=== PATIENT | female | born 1995 | race Caucasian/White ===

== ENCOUNTER 2020-02-16 13:56 | Outpatient (REF) | payer MEDICAID, SELFPAY ==
[2020-02-16 14:03] LABS: Glucose Urine UA NEG (NEG); Leukocyte Esterase Urine NEG (NEG); Nitrite Urine NEG (NEG); Specific Gravity - Urine >= 1.030 (1.005-1.025); Urine Blood TRACE (NEG); Urine Ketones NEG (NEG); Urine Protein NEG (NEG-TRACE)
[2020-02-16 14:06] LABS: Appearance Urine HAZY; Color Urine YELLOW
[2020-02-16 14:12] LABS: Mucus Urine 2+ /LPF; RBC Urine 0-2 /HPF (0); Squamous Epithelial Cell Urine 1+ /LPF; WBC Urine 0 /HPF (0-4)
== END 2020-02-16 13:57 | disposition home or self-care (01) ==
LOC: HO.LNP 13:56
PROVIDERS: Visit Provider Family Medicine
DX: Z33.1 Pregnant state, incidental (principal)
CPT/HCPCS: 81001; 81003; 87086

== ENCOUNTER 2020-02-18 22:42 | Emergency (ER) | payer MEDICAID, SELFPAY ==
[2020-02-18 22:45] VITALS: BP 119/73; PULSE 146; RESP 22; TEMP 37.2; O2SAT 98; BMI 29.2
--- NOTE | 2020-02-18 22:53 | XR_ITS ---
EXAMINATION: XR CHEST CLINICAL INFORMATION: Shortness of breath COMPARISON: 04/28/2019 TECHNIQUE: Frontal view of the chest was obtained. FINDINGS: Cardiac leads overlie the chest. The lungs are well expanded. There is no focal consolidation, edema, or effusion. Bronchial wall thickening noted. No pneumothorax. The cardiomediastinal silhouette is within normal limits. No acute osseous abnormality. XR/XR chest 1V IMPRESSION: No consolidation. Bronchial wall thickening can be seen with a small airways process such as asthma or atypical/viral infection.
--- NOTE | 2020-02-18 22:53 | ECG_ITS ---
Test Reason : COUGH Blood Pressure : / mmHG Vent. Rate : 148 BPM Atrial Rate : 148 BPM P-R Int : 112 ms QRS Dur : 072 ms QT Int : 338 ms P-R-T Axes : 076 071 046 degrees QTc Int : 530 ms Sinus tachycardia Nonspecific ST and T wave abnormality Abnormal ECG When compared with ECG of 22-APR-2019 13:55, Non-specific change in ST segment in Inferior leads Non-specific change in ST segment in Anterior leads Referred By: Staci Baht Electronically Signed By:KATIE BONE
[2020-02-18 23:05] VITALS: BP 152/89; PULSE 166; RESP 26; TEMP 37.3; O2SAT 99; BMI 29.2
--- NOTE | 2020-02-18 23:18 | ED_ITS ---
HPI - SOB/Dyspnea General Chief Complaint: Upper Respiratory Symptoms Stated Complaint: Asthma Time Seen by Provider: 02/18/20 22:52 Source: patient Mode of arrival: ambulatory History of Present Illness HPI Narrative: 25-year-old female with past medical history of asthma, tachycardia, at about 7 weeks gestation LMP 12/31/19, presenting to the ED complaining persistent cough, chest tightness, and SOB x7 days. Admits to using albuterol q4hrs with some relief. Also reports lower abdominal discomfort suspected from all the coughing. Denies fever, chills, N/V/D/C, dysuria/hematuria, vaginal bleeding or d/c, recent travel, hx clots or exposure to covid19 admits has been off her Metoprolol x7 weeks due to MD elicited complaint: shortness of breath, cough and asthma attack Related Data Previous Rx's Medication Instructions Recorded fluticasone propionate 50 1 spray INTRANASAL BID 30 Days 02/16/20 mcg/actuation nasal #15.8 ml spray,suspension prenat.vits,seymour,[id number]-[id number] 1 tab PO DAILY 90 Days #90 tab 02/16/20 azithromycin See Rx Instructions .ROUTE 02/19/20 .COMPLEX #6 tab prednisone 40 mg PO DAILY 4 Days #8 tab 02/19/20 Allergies Allergy/AdvReac Type Severity Reaction Status Date / Time omalizumab [From XOLAIR] Allergy Severe HIVES AND Verified 02/18/20 23:05 THROAT CLOSING Penicillins [PENICILLINS] Allergy Severe UNKNOWN Verified 02/18/20 23:05 amoxicillin [AMOXICILLIN] Allergy Intermediate UNKNOWN, Verified 02/18/20 23:05 anaphylaxis,rash cetirizine [From ZYRTEC] Allergy Intermediate SHORTNESS Verified 02/18/20 23:05 OF BREATH vancomycin [VANCOMYCIN] Allergy Intermediate RASH, Verified 02/18/20 23:05 itching animal dander Allergy Unknown HIVES Verified 02/18/20 23:05 loratadine [LORATADINE] Allergy Unknown THROAT Verified 02/18/20 23:05 SWELLING, hives SEAFOOD Allergy Severe ANAPHYLAXIS Uncoded 02/18/20 22:49 GRASS Allergy Mild HIVES Uncoded 02/18/20 22:49 penicillin AdvReac Unknown anaphylaxis Uncoded 02/18/20 22:49 ,rash Review of Systems Review of Systems: Constitutional: No Weight loss, No Fever, No Chills, No Night Sweats, No Fatigue, No Malaise ENT/Mouth: No Nasal Congestion, No Sinus Pain, No Hoarseness, No sore throat, No Rhinorrhea Cardiovascular: + Chest Pain, + SOB, No Dyspnea on Exertion, No Orthopnea, No Edema Respiratory: + Cough, + Sputum, + Wheezing, No Smoke Exposure, +Dyspnea Gastrointestinal: No Nausea, No Vomiting, No Diarrhea, No Constipation, + Abdominal pain, No Hematochezia, No Melena Genitourinary: No irregular bleeding, No Dysuria, No Urinary Frequency, No Hematuria Musculoskeletal: No joint pain, No Myalgias, No Joint Swelling Skin: No Skin Lesions, No rash Yes all other systems are reviewed and are negative [facility] Past Medical History Attestation statement: The following information was validated with the patient. Medical History (Updated 02/19/20 @ 01:07 by SANDRA Reeves) Asthma Tachycardia Social History Social History Advance Directives: No Advance Directives Information Provided: No Physical Exam Vital Signs: Vital Signs: Last Vital Signs Temp 99.1 F 02/18/20 23:05 Pulse 149 H 02/19/20 00:25 Resp 22 H 02/19/20 00:07 BP 124/70 02/19/20 00:07 Pulse Ox 99 02/19/20 00:07 Body Mass Index 29.2 Const: General: cooperative and healthy appearing Orientation/ consciousness: patient oriented x3 Limitations: no limitations HENMT: Head: Yes normal to inspection Ears: hearing grossly normal bilaterally General nose exam: Normal external nose present Face and sinus: Yes normal facial exam Eyes: General: appearance normal, both eyes and all related structures EOM: EOMs intact bilaterally Neck: Neck: Yes normal visual inspection and Yes no meningeal signs Resp: Effort & Inspection: no stridor and tachypneic Auscultation: no wheezes and diminished lung sounds (bibasilar) Cardio: Rate: regular rate and tachycardic Heart sounds: S1 normal heart sound present and S2 normal heart sound present GI: Inspection: Yes normal to inspection Palpation (GI): Soft to palpation, Tenderness to palpation present (GI) (lower abdomen), no guarding and not rigid Skin: Rashes: no rashes Wounds: no wounds Neuro: General: patient oriented x3 and no meningeal signs Gait exam (Neuro): Normal gait present Extrem: General: Yes normal to inspection Course Course Course Narrative: * mild leukocytosis 15.7 > low concern for severe sepsis, likely reactive from coughing * d-dimer negative * CRP mildly elevated, troponin negative, labs otherwise unremarkable * Lungs CTA after neb tx chest 1V IMPRESSION: No consolidation. Bronchial wall thickening can be seen with a small airways process such as asthma or atypical/viral infection. * [id number]/influenza/RSV negative, on re-evaluation patient reports symptomatic improvement, appears more comfortable, heart rate 120-130. Patient reports chronic tachycardia, baseline usually around 108 * 0200-- ED care transferred to Dr. Gill pending OB Ultrasound, UA and re- evaluation MDM - SOB/Dyspnea MDM Narrative Medical decision making narrative: 25-year-old female with past medical history of asthma, tachycardia, at about 7 weeks gestation, presenting to the ED complaining persistent cough, chest tightness, and SOB x7 days. On exam tachycardic, tachypneic, low grade temp 99.1, continuously coughing on exam, diminished lung sounds bibasilar, no appreciable wheezing, no resp distress when not coughing. Concern for asthma exacerbation vs viral syndrome/covid vs PE. Lower concern for PNA or severe sepsis Plan: EKG, labs, CXR, Covid/flu/rsv, Xopenex, Magnesium, Prednisone, US Lab Data Result diagrams: 02/19/20 00:00 02/18/20 23:59 Labs: Lab Results 02/18/20 02/18/20 02/18/20 Range/Units 23:58 23:59 23:59 WBC (4.8-10.8) X10*3/uL RBC (4.20-5.50) X10*6/uL Hgb (12.0-16.0) g/dl Hct (37-47) % MCV (80-98) fL MCH (27.0-33.0) pg MCHC (31.0-35.0) g/dl RDW (11.0-16.0) % Plt Count (160-400) X10*3/uL MPV Immature Gran % (Auto) (0.0-0.4) % Neut % (Auto) (45-73) % Lymph % (Auto) (20-40) % [place] % (Auto) (2-11) % Eos % (Auto) (0-4) % Baso % (Auto) (0-2) % Lymph # (Auto) (1.2-4.9) X10*3/uL [place] # (Auto) (0.1-1.2) X10*3/uL Eos # (Auto) (0.0-0.4) X10*3/uL Baso # (Auto) (0.0-0.2) X10*3/uL Abs Immat Gran (auto) (0.00-0.03) X10*3/uL Absolute Neuts (auto) (2.0-8.3) X10*3/uL Absolute Nucleated RBC (0.0-0.012) X10*3/uL Nucleated RBC % (auto) (0.0-0.2) /100WBC Smear Tech's Comments PT (10.8-13.0) SEC INR (0.9-1.1) APTT (24.1-38.0) SEC D-Dimer NG/ML Sodium 138 (135-145) mmol/L Potassium 3.7 (3.3-5.1) mmol/l Chloride 103 (96-108) mmol/L Carbon Dioxide 23 (22-29) mmol/L Anion Gap 16 (12-20) BUN 10 (9-16) mg/dL Creatinine 0.64 (0.5-1.4) mg/dL Estim Creat Clear Calc 137.4 Estimated GFR > 60 Random Glucose 89 (60-115) mg/dL Calcium 9.5 (8.4-10.2) mg/dL Magnesium 1.7 (1.6-2.6) mg/dL Ferritin 68 (10-122) ng/mL Total Bilirubin 0.2 (0.0-1.0) mg/dL Direct Bilirubin < 0.2 (0.0-0.5) mg/dL AST 17 (5-31) U/L ALT 23 (0-31) U/L Alkaline Phosphatase 73 (39-117) U/L Lactate Dehydrogenase 186 (122-220) U/L Troponin I High Sens (<3.5-17.0) ng/L C-Reactive Protein (< or = 0.50) mg/dL B-Natriuretic Peptide (<100) pg/mL Total Protein 8.1 H (6.5-8.0) g/dL Albumin 4.9 (3.5-5.0) g/dL Lipase 16 (8-78) U/L Procalcitonin 0.03 ng/mL Beta HCG, Quant mIU/mL Urine Color Urine Appearance Urine pH (5.0-8.0) Ur Specific [place] (1.005-1.025) Urine Protein (NEG-TRACE) MG/DL Urine Glucose (UA) (NEG) MG/DL Urine Ketones (NEG) MG/DL Urine Blood (NEG) Urine Nitrite (NEG) Ur Leukocyte Esterase (NEG) Coronavirus (PCR) (Negative) Influenza Type A (PCR) (Negative) Influenza Type B (PCR) (Negative) RSV RNA Qual (PCR) (Negative) 02/18/20 02/18/20 02/19/20 Range/Units 23:59 23:59 00:00 WBC 15.7 H (4.8-10.8) X10*3/uL RBC 5.33 (4.20-5.50) X10*6/uL Hgb 11.9 L (12.0-16.0) g/dl Hct 37.7 (37-47) % MCV 70.7 L (80-98) fL MCH 22.3 L (27.0-33.0) pg MCHC 31.6 (31.0-35.0) g/dl RDW 14.2 (11.0-16.0) % Plt Count 216 (160-400) X10*3/uL MPV TNP Immature Gran % (Auto) 0.4 (0.0-0.4) % Neut % (Auto) 81.9 H (45-73) % Lymph % (Auto) 8.8 L (20-40) % [place] % (Auto) 4.3 (2-11) % Eos % (Auto) 4.3 H (0-4) % Baso % (Auto) 0.3 (0-2) % Lymph # (Auto) 1.4 (1.2-4.9) X10*3/uL [place] # (Auto) 0.7 (0.1-1.2) X10*3/uL Eos # (Auto) 0.7 H (0.0-0.4) X10*3/uL Baso # (Auto) 0.0 (0.0-0.2) X10*3/uL Abs Immat Gran (auto) 0.07 H (0.00-0.03) X10*3/uL Absolute Neuts (auto) 12.9 H (2.0-8.3) X10*3/uL Absolute Nucleated RBC 0.000 (0.0-0.012) X10*3/uL Nucleated RBC % (auto) 0.0 (0.0-0.2) /100WBC Smear Tech's Comments VERIFIED PT (10.8-13.0) SEC INR (0.9-1.1) APTT (24.1-38.0) SEC D-Dimer 221 NG/ML Sodium (135-145) mmol/L Potassium (3.3-5.1) mmol/l Chloride (96-108) mmol/L Carbon Dioxide (22-29) mmol/L Anion Gap (12-20) BUN (9-16) mg/dL Creatinine (0.5-1.4) mg/dL Estim Creat Clear Calc Estimated GFR Random Glucose (60-115) mg/dL Calcium (8.4-10.2) mg/dL Magnesium (1.6-2.6) mg/dL Ferritin (10-122) ng/mL Total Bilirubin (0.0-1.0) mg/dL Direct Bilirubin (0.0-0.5) mg/dL AST (5-31) U/L ALT (0-31) U/L Alkaline Phosphatase (39-117) U/L Lactate Dehydrogenase (122-220) U/L Troponin I High Sens (<3.5-17.0) ng/L C-Reactive Protein 1.40 H (< or = 0.50) mg/dL B-Natriuretic Peptide (<100) pg/mL Total Protein (6.5-8.0) g/dL Albumin (3.5-5.0) g/dL Lipase (8-78) U/L Procalcitonin ng/mL Beta HCG, Quant 57826 mIU/mL Urine Color Urine Appearance Urine pH (5.0-8.0) Ur Specific [place] (1.005-1.025) Urine Protein (NEG-TRACE) MG/DL Urine Glucose (UA) (NEG) MG/DL Urine Ketones (NEG) MG/DL Urine Blood (NEG) Urine Nitrite (NEG) Ur Leukocyte Esterase (NEG) Coronavirus (PCR) (Negative) Influenza Type A (PCR) (Negative) Influenza Type B (PCR) (Negative) RSV RNA Qual (PCR) (Negative) 02/19/20 02/19/20 02/19/20 Range/Units 00:00 00:00 00:01 WBC (4.8-10.8) X10*3/uL RBC (4.20-5.50) X10*6/uL Hgb (12.0-16.0) g/dl Hct (37-47) % MCV (80-98) fL MCH (27.0-33.0) pg MCHC (31.0-35.0) g/dl RDW (11.0-16.0) % Plt Count (160-400) X10*3/uL MPV Immature Gran % (Auto) (0.0-0.4) % Neut % (Auto) (45-73) % Lymph % (Auto) (20-40) % [place] % (Auto) (2-11) % Eos % (Auto) (0-4) % Baso % (Auto) (0-2) % Lymph # (Auto) (1.2-4.9) X10*3/uL [place] # (Auto) (0.1-1.2) X10*3/uL Eos # (Auto) (0.0-0.4) X10*3/uL Baso # (Auto) (0.0-0.2) X10*3/uL Abs Immat Gran (auto) (0.00-0.03) X10*3/uL Absolute Neuts (auto) (2.0-8.3) X10*3/uL Absolute Nucleated RBC (0.0-0.012) X10*3/uL Nucleated RBC % (auto) (0.0-0.2) /100WBC Smear Tech's Comments PT 12.7 (10.8-13.0) SEC INR 1.1 (0.9-1.1) APTT 33.5 (24.1-38.0) SEC D-Dimer NG/ML Sodium (135-145) mmol/L Potassium (3.3-5.1) mmol/l Chloride (96-108) mmol/L Carbon Dioxide (22-29) mmol/L Anion Gap (12-20) BUN (9-16) mg/dL Creatinine (0.5-1.4) mg/dL Estim Creat Clear Calc Estimated GFR Random Glucose (60-115) mg/dL Calcium (8.4-10.2) mg/dL Magnesium (1.6-2.6) mg/dL Ferritin (10-122) ng/mL Total Bilirubin (0.0-1.0) mg/dL Direct Bilirubin (0.0-0.5) mg/dL AST (5-31) U/L ALT (0-31) U/L Alkaline Phosphatase (39-117) U/L Lactate Dehydrogenase (122-220) U/L Troponin I High Sens < 3.5 (<3.5-17.0) ng/L C-Reactive Protein (< or = 0.50) mg/dL B-Natriuretic Peptide < 10 (<100) pg/mL Total Protein (6.5-8.0) g/dL Albumin (3.5-5.0) g/dL Lipase (8-78) U/L Procalcitonin ng/mL Beta HCG, Quant mIU/mL Urine Color Urine Appearance Urine pH (5.0-8.0) Ur Specific [place] (1.005-1.025) Urine Protein (NEG-TRACE) MG/DL Urine Glucose (UA) (NEG) MG/DL Urine Ketones (NEG) MG/DL Urine Blood (NEG) Urine Nitrite (NEG) Ur Leukocyte Esterase (NEG) Coronavirus (PCR) NEGATIVE (Negative) Influenza Type A (PCR) NEGATIVE (Negative) Influenza Type B (PCR) NEGATIVE (Negative) RSV RNA Qual (PCR) NEGATIVE (Negative) 02/19/20 Range/Units 01:13 WBC (4.8-10.8) X10*3/uL RBC (4.20-5.50) X10*6/uL Hgb (12.0-16.0) g/dl Hct (37-47) % MCV (80-98) fL MCH (27.0-33.0) pg MCHC (31.0-35.0) g/dl RDW (11.0-16.0) % Plt Count (160-400) X10*3/uL MPV Immature Gran % (Auto) (0.0-0.4) % Neut % (Auto) (45-73) % Lymph % (Auto) (20-40) % [place] % (Auto) (2-11) % Eos % (Auto) (0-4) % Baso % (Auto) (0-2) % Lymph # (Auto) (1.2-4.9) X10*3/uL [place] # (Auto) (0.1-1.2) X10*3/uL Eos # (Auto) (0.0-0.4) X10*3/uL Baso # (Auto) (0.0-0.2) X10*3/uL Abs Immat Gran (auto) (0.00-0.03) X10*3/uL Absolute Neuts (auto) (2.0-8.3) X10*3/uL Absolute Nucleated RBC (0.0-0.012) X10*3/uL Nucleated RBC % (auto) (0.0-0.2) /100WBC Smear Tech's Comments PT (10.8-13.0) SEC INR (0.9-1.1) APTT (24.1-38.0) SEC D-Dimer NG/ML Sodium (135-145) mmol/L Potassium (3.3-5.1) mmol/l Chloride (96-108) mmol/L Carbon Dioxide (22-29) mmol/L Anion Gap (12-20) BUN (9-16) mg/dL Creatinine (0.5-1.4) mg/dL Estim Creat Clear Calc Estimated GFR Random Glucose (60-115) mg/dL Calcium (8.4-10.2) mg/dL Magnesium (1.6-2.6) mg/dL Ferritin (10-122) ng/mL Total Bilirubin (0.0-1.0) mg/dL Direct Bilirubin (0.0-0.5) mg/dL AST (5-31) U/L ALT (0-31) U/L Alkaline Phosphatase (39-117) U/L Lactate Dehydrogenase (122-220) U/L Troponin I High Sens (<3.5-17.0) ng/L C-Reactive Protein (< or = 0.50) mg/dL B-Natriuretic Peptide (<100) pg/mL Total Protein (6.5-8.0) g/dL Albumin (3.5-5.0) g/dL Lipase (8-78) U/L Procalcitonin ng/mL Beta HCG, Quant mIU/mL Urine Color YELLOW Urine Appearance CLEAR Urine pH 5.5 (5.0-8.0) Ur Specific [place] >= 1.030 H (1.005-1.025) Urine Protein NEG (NEG-TRACE) MG/DL Urine Glucose (UA) NEG (NEG) MG/DL Urine Ketones NEG (NEG) MG/DL Urine Blood 2+ H (NEG) Urine Nitrite NEG (NEG) Ur Leukocyte Esterase NEG (NEG) Coronavirus (PCR) (Negative) Influenza Type A (PCR) (Negative) Influenza Type B (PCR) (Negative) RSV RNA Qual (PCR) (Negative) Discharge Plan Discharge Clinical Impression: Asthma with exacerbation Qualifiers: Asthma severity: unspecified severity Asthma persistence: unspecified Qualified Code(s): J45.901 - Unspecified asthma with (acute) exacerbation Patient Disposition: Home, Self-Care Instructions: Asthma (ED) Additional Instructions: You are having a bad asthma exacerbation Continue using your inhalers at home In addition start taking prednisone as prescribed, and azithromycin which is an antibiotic Your chest x-ray showed evidence of bronchial wall thickening/atypical viral infection, however your COVID-19/flu/RSV was negative You need to call your OBGYN for close follow-up If you develop worsening or constant abdominal pain, vaginal bleeding or discharge, chest pain, shortness breath, or high fevers return to the ED immediately Prescriptions: New azithromycin 250 mg tablet See Rx Instructions .ROUTE .COMPLEX Qty: 6 RF: 0 prednisone 20 mg tablet 40 mg PO DAILY 4 Days Qty: 8 RF: 0 No Action prenat.vits,seymour,[id number] Tablet 1 tab PO DAILY 90 Days Qty: 90 RF: 6 fluticasone propionate [Flonase Allergy Relief] 50 mcg/actuation spray,suspension 1 spray intranasal BID 30 Days Qty: 15.8 RF: 2 Referrals: Magnus Hampton MD [Primary Care Provider] - 2 days
[2020-02-18] MEDS: Acetaminophen 325 MG TABLET 650 MG PO (23:42)
[2020-02-18] MEDS: predniSONE 20 MG TABLET 40 MG PO (23:43)
[2020-02-18] MEDS: Benzonatate 100 MG CAPSULE PO (23:44)
[2020-02-19 00:07] VITALS: BP 124/70; PULSE 133; RESP 22; O2SAT 99
--- NOTE | 2020-02-19 00:11 | PC.NURSE ---
pt moved to room #1 for resp tx, pt continues to cough, pt medicated as per emar. iv placed to right wrist, labs drawn and sent to lab for eval. Pt awaiting u/s. pt on monitor with hr of 135. VS obtained.
[2020-02-19] MEDS: 0.9 % Sodium Chloride 500 ML 999 ML IV (00:19)
[2020-02-19] MEDS: Magnesium Sulfate/H2O 2 GM/50 ML PIGGYBACK IV (00:19)
[2020-02-19 00:25] VITALS: PULSE 149; O2SAT 100
[2020-02-19 00:25] LABS: Basophils Percent Auto 0.3 % (0-2); MANUAL DIFF FLAG SCAN; Mean Corpuscular Hemoglobin 22.3 pg (27.0-33.0); Mean Corpuscular Volume 70.7 fL (80-98); SCAN SMEAR FLAG 1
[2020-02-19] MEDS: levalbuterol HCL 1.25 MG/3 ML VIAL.NEB INHALE (00:25)
[2020-02-19 00:27] LABS: Eosinophils Absolute Auto 0.7 X10*3/uL (0.0-0.4); Eosinophils Percent Auto 4.3 % (0-4); Hematocrit 37.7 % (37-47); Hemoglobin 11.9 g/dl (12.0-16.0); Imm Gran Abs Auto 0.07 X10*3/uL (0.00-0.03); Imm Gran Pct Auto 0.4 % (0.0-0.4); Lymphocytes Absolute Auto 1.4 X10*3/uL (1.2-4.9); Lymphocytes Percent Auto 8.8 % (20-40); Mean Corpuscular HGB Conc 31.6 g/dl (31.0-35.0); Monocytes Absolute Auto 0.7 X10*3/uL (0.1-1.2); Monocytes Percent Auto 4.3 % (2-11); Neutrophils Absolute Auto 12.9 X10*3/uL (2.0-8.3); Neutrophils Percent Auto 81.9 % (45-73); Platelet Count 216 X10*3/uL (160-400); Red Blood Count 5.33 X10*6/uL (4.20-5.50); Red Cell Distribution Width 14.2 % (11.0-16.0); White Blood Count 15.7 X10*3/uL (4.8-10.8)
[2020-02-19 00:28] LABS: INTERNATIONAL NORM RATIO 1.1 (0.9-1.1); PLT ABN DIST 1; Prothrombin Time 12.7 SEC (10.8-13.0)
[2020-02-19 00:31] LABS: Partial Thromboplastin Time 33.5 SEC (24.1-38.0)
[2020-02-19 00:32] LABS: D Dimer 221 NG/ML
[2020-02-19 00:41] LABS: B Type Natriuretic Peptide < 10 pg/mL (<100); Troponin-I High Sensitivity < 3.5 ng/L (<3.5-17.0)
[2020-02-19 00:41] LABS: Lipase 16 U/L (8-78)
[2020-02-19 00:44] LABS: Alanine Aminotransferase 23 U/L (0-31); Albumin Level 4.9 g/dL (3.5-5.0); Alkaline Phosphatase 73 U/L (39-117); Anion Gap 16 (12-20); Aspartate Amino Transferase 17 U/L (5-31); Bilirubin Direct < 0.2 mg/dL (0.0-0.5); Bilirubin Total 0.2 mg/dL (0.0-1.0); Blood Urea Nitrogen 10 mg/dL (9-16); Calcium 9.5 mg/dL (8.4-10.2); Carbon Dioxide 23 mmol/L (22-29); Chloride 103 mmol/L (96-108); Creatinine Clr Calc Pharmacy 137.4; Estimated Glomerular Filt Rate > 60; Glucose Random 89 mg/dL (60-115); Lactate Dehydrogenase 186 U/L (122-220); Magnesium 1.7 mg/dL (1.6-2.6); Potassium 3.7 mmol/l (3.3-5.1); Sodium 138 mmol/L (135-145); Total Protein 8.1 g/dL (6.5-8.0)
[2020-02-19 01:04] LABS: Ferritin 68 ng/mL (10-122)
[2020-02-19 01:10] LABS: Procalcitonin 0.03 ng/mL
[2020-02-19 01:14] LABS: Influenza A PCR NEGATIVE (Negative); Influenza B PCR NEGATIVE (Negative); Resp Syncy Virus RNA Qual PCR NEGATIVE (Negative); SARS COV2 PCR INHOUSE NEGATIVE (Negative)
[2020-02-19 01:18] LABS: HCG Quantitative 21368 mIU/mL
[2020-02-19 01:19] LABS: SLIDE REVIEW VERIFIED
--- NOTE | 2020-02-19 01:25 | US_ITS ---
EXAMINATION: US OBSTETRICAL CLINICAL INFORMATION: Evaluate fetus. Lower abdominal pain. COMPARISON: None TECHNIQUE: Real-time ultrasound was performed transabdominally and transvaginally. FINDINGS: Within the endometrial cavity is a well formed gestation sac. A yolk sac is present. The crown-rump length of 0.53 cm corresponds to a menstrual age of 6 weeks 3 days. This yields an estimated date of delivery of 10/11/2020. anatomic survey is normal for age. The heart beat is regular and normal rate measuring 121 beats per minute. Both ovaries are identified normal. The right ovary measures 2.5 x 1.7 x 1.7 cm. The left ovary measures 2.6 x 1.9 x 1.8 cm. No adnexal mass. Other significant findings: Small amount of pelvic free fluid. US/US OB <= 14 weeks fetus IMPRESSION: Single live intrauterine estimated to be 6 weeks 3 days menstrual age. Estimated date of delivery is 10/11/2020.
--- NOTE | 2020-02-19 01:25 | US_ITS ---
EXAMINATION: US OBSTETRICAL CLINICAL INFORMATION: Evaluate fetus. Lower abdominal pain. COMPARISON: None TECHNIQUE: Real-time ultrasound was performed transabdominally and transvaginally. FINDINGS: Within the endometrial cavity is a well formed gestation sac. A yolk sac is present. The crown-rump length of 0.53 cm corresponds to a menstrual age of 6 weeks 3 days. This yields an estimated date of delivery of 10/11/2020. anatomic survey is normal for age. The heart beat is regular and normal rate measuring 121 beats per minute. Both ovaries are identified normal. The right ovary measures 2.5 x 1.7 x 1.7 cm. The left ovary measures 2.6 x 1.9 x 1.8 cm. No adnexal mass. Other significant findings: Small amount of pelvic free fluid. US/US OB transvaginal IMPRESSION: Single live intrauterine estimated to be 6 weeks 3 days menstrual age. Estimated date of delivery is 10/11/2020.
[2020-02-19 01:35] LABS: Glucose Urine UA NEG (NEG); Leukocyte Esterase Urine NEG (NEG); Nitrite Urine NEG (NEG); PH 5.5 (5.0-8.0); Specific Gravity - Urine >= 1.030 (1.005-1.025); Urine Blood 2+ (NEG); Urine Ketones NEG (NEG); Urine Protein NEG (NEG-TRACE)
[2020-02-19 01:37] LABS: Appearance Urine CLEAR; Color Urine YELLOW
[2020-02-19 02:04] LABS: Bacteria Urine 1+ /LPF; Squamous Epithelial Cell Urine 1+ /LPF
[2020-02-19 02:05] LABS: Calcium Oxalate Crystals Urine 3+ /LPF; Mucus Urine 1+ /LPF
== END 2020-02-19 03:30 | disposition home or self-care (01) ==
PROVIDERS: Physician Assistant; Emergency Provider Emergency Medicine; PCP Family Medicine
DX: O99.511 Diseases of the respiratory system complicating pregnancy, first trimester (principal); J45.901 Unspecified asthma with (acute) exacerbation; Z3A.01 Less than 8 weeks gestation of pregnancy; Z20.828 Contact with and (suspected) exposure to other viral communicable diseases
CPT/HCPCS: 0241U; 36415; 71045; 76801; 76817; 80048; 80076; 81001; 82728; 83615; 83690; 83735; 83880; 84145; 84484; 84702; 85025; 85379; 85610; 85730; 86140; 93005; 94640; 96365; 96366; 99284; J3475

== ENCOUNTER → 2020-02-27 14:49 | Outpatient (BNVA) | payer MEDICAID, SELFPAY | PROVIDERS: PCP Family Medicine; Visit Provider Internal Medicine Cardiovascular Disease | DX: R00.0 Tachycardia, unspecified (principal); R06.00 Dyspnea, unspecified | CPT/HCPCS: 93005; 99212 ==

== ENCOUNTER 2020-09-19 13:55 | Outpatient (REF) | payer OTHER, SELFPAY ==
[2020-09-19 16:33] LABS: Glucose Urine UA NEG (NEG); Leukocyte Esterase Urine 2+ (NEG); Nitrite Urine NEG (NEG); Specific Gravity - Urine >= 1.030 (1.005-1.025); Urine Blood 1+ (NEG); Urine Ketones 5 MG/DL (NEG); Urine Protein 1+ MG/DL (NEG-TRACE)
[2020-09-19 16:35] LABS: Appearance Urine HAZY; Color Urine YELLOW
[2020-09-19 16:58] LABS: Bacteria Urine 1+ /LPF; Mucus Urine 1+ /LPF; Squamous Epithelial Cell Urine 2+ /LPF
[2020-09-19 16:59] LABS: Calcium Oxalate Crystals Urine TRACE /LPF
== END 2020-09-19 13:56 | disposition home or self-care (01) ==
LOC: HO.LAB 13:55
PROVIDERS: PCP Family Medicine; Referring Provider Family Medicine; Visit Provider Internal Medicine Cardiovascular Disease
DX: O26.893 Other specified pregnancy related conditions, third trimester (principal); R00.0 Tachycardia, unspecified; R03.0 Elevated blood-pressure reading, without diagnosis of hypertension; Z3A.37 37 weeks gestation of pregnancy
CPT/HCPCS: 81001; 93005; 99212

== ENCOUNTER 2020-10-05 09:00 | Outpatient (RCR) | payer OTHER, SELFPAY | END 2020-10-29 11:52 | disposition home or self-care (01) | LOC: HO.PT 09:00 | PROVIDERS: Visit Provider Advanced Practice Midwife | DX: O26.899 Other specified pregnancy related conditions, unspecified trimester (principal) | CPT/HCPCS: 97110; 97140; 97161; 97530 ==

== ENCOUNTER 2022-07-04 22:09 | Emergency (ER) | payer OTHER, SELFPAY ==
--- NOTE | ~2022-07-04 | XR_ITS ---
EXAMINATION: XR FOOT, RIGHT CLINICAL INFORMATION: Right foot pain status post injury. COMPARISON: None available. TECHNIQUE: AP, lateral, and oblique views of the right foot. FINDINGS: The bones and soft tissues are normal. No fracture. Alignment is anatomic. Joint spaces are maintained. XR/XR foot RT 2V IMPRESSION: Unremarkable right foot.
--- NOTE | ~2022-07-04 | XR_ITS ---
EXAMINATION: XR ANKLE, RIGHT CLINICAL INFORMATION: Right ankle injury. COMPARISON: None available. TECHNIQUE: AP, lateral, and mortise views of the right ankle. FINDINGS: The bones and soft tissues are normal. No fracture. Alignment is anatomic. Joint spaces are maintained. No joint effusion. XR/XR ankle RT 2V IMPRESSION: Unremarkable right ankle.
[2022-07-04 22:12] VITALS: BP 137/85; PULSE 101; RESP 18; TEMP 36.7; O2SAT 98; BMI 22.6
--- NOTE | 2022-07-05 01:14 | ED_ITS ---
HPI - Extremity Injury (Lower) General Chief Complaint: Extremity Injury, Lower Stated Complaint: R Foot Inj Time Seen by Provider: 07/05/22 01:14 Source: patient Mode of arrival: ambulatory Limitations: no limitations History of Present Illness HPI Narrative: 27-year-old female presents to the emergency department complaints of right foot/ankle pain status post playing volleyball, patient reports some the stepped on her foot and since then has been having severe pain swelling. Patient reports intermittent tingling. Denies numbness. No previous issues with right foot. Denies fevers and chills. Patient did not fall or hit her head. No other reported injuries. Related Data Previous Rx's Medication Instructions Recorded prenat.vits,seymour,[id number] 1 tab PO DAILY 90 days #90 tabs 02/16/20 albuterol sulfate 90 mcg/actuation 2 puff inhalation Q4-6H PRN 08/28/20 aerosol inhaler (ProAir HFA) shortness of breath or wheezing #8.5 grams epinephrine 0.3 mg/0.3 mL 0.3 mg (0.3 mL) IM ONCE PRN 10/23/20 injection, auto-injector (EpiPen) anaphylaxis #2 ea ibuprofen 800 mg tablet 800 mg PO Q8H PRN pain 14 days #42 07/19/21 tabs sulfamethoxazole 800 1 tab PO Q12H 10 days #20 tabs 07/19/21 mg-trimethoprim 160 mg tablet (Bactrim DS) ketorolac 10 mg tablet 10 mg PO TID PRN pain 5 days #15 07/05/22 tabs Allergies Allergy/AdvReac Type Severity Reaction Status Date / Time omalizumab [From XOLAIR] Allergy Severe HIVES AND Verified 07/19/21 14:10 THROAT CLOSING Penicillins [PENICILLINS] Allergy Severe UNKNOWN Verified 07/19/21 14:10 amoxicillin [AMOXICILLIN] Allergy Intermediate UNKNOWN, Verified 07/19/21 14:10 anaphylaxis,rash cetirizine [From ZYRTEC] Allergy Intermediate SHORTNESS Verified 07/19/21 14:10 OF BREATH vancomycin [VANCOMYCIN] Allergy Intermediate RASH, Verified 07/19/21 14:10 itching animal dander Allergy Unknown HIVES Verified 07/19/21 14:10 loratadine [LORATADINE] Allergy Unknown THROAT Verified 07/19/21 14:10 SWELLING, hives SEAFOOD Allergy Severe ANAPHYLAXIS Uncoded 07/19/21 14:10 GRASS Allergy Mild HIVES Uncoded 07/19/21 14:10 penicillin AdvReac Unknown anaphylaxis Uncoded 07/19/21 14:10 ,rash Review of Systems Review of Systems: Constitutional : No Weight loss, No Fever, No Chills, No Fatigue, No Malaise ENT/Mouth : No sore throat, No Rhinorrhea Eyes: No Eye Pain, No Swelling, No Redness Cardiovascular : No Chest Pain, No SOB, No Dyspnea on Exertion, No Orthopnea, No Edema, No Palpitations Respiratory : No Cough, No Sputum, No Wheezing Gastrointestinal : No Nausea, No Vomiting, No Diarrhea, No Constipation, No abdominal Pain, No Hematochezia, No Melena Genitourinary : No Dysuria, No Urinary Frequency, No Hematuria, Musculoskeletal : + joint pain, No Myalgias, + Joint Swelling Skin : No Skin Lesions, No rash Neuro : No Weakness, No Numbness, No Dizziness, No Headache Psych : No Anxiety/Panic, No Depression All other systems reviewed and are negative Yes all other systems are reviewed and are negative [facility] Past Medical History Attestation statement: The following information was validated with the patient. Source: old records reviewed Medical History (Updated 07/05/22 @ 01:16 by SANDRA Cody) Asthma Tachycardia Surgical History (Updated 08/09/21 @ 14:13 by Heather Smith) H/O wisdom tooth extraction Family History Family History Father Stroke Diabetes Hypertension Paternal Grandmother Pacemaker Social History Social History Housing: Apartment Alcohol intake: never Patient Tobacco Use Status: Never used Tobacco Smoked in Last 30 Days: No e-Cigarette/Vaping Use: Never Used Use of substances other than those prescribed or required for medical reasons: No Advance Directives: No Advance Directives Information Provided: Yes Patient : No Current occupational status: employed Cognitive needs: No Hearing needs: No Vision needs: No Physical Exam Vital Signs: Vital Signs: Last Vital Signs Temp 98.1 F 07/05/22 01:15 Pulse 100 07/05/22 01:15 Resp 18 07/05/22 01:15 BP 132/80 07/05/22 01:15 Pulse Ox 99 07/05/22 01:15 O2 Del Method Room Air 07/05/22 01:15 BMI result Body Mass Index 22.6 Vital signs stable Appearance: Alert.? Oriented X3.? No acute distress.? Head: Normocephalic, atraumatic, no step-offs or deformities Eyes: Pupils equal, round and reactive to light.? CVS: Normal heart rate and rhythm.? Pulses normal.? Respiratory: No respiratory distress.? Breath sounds normal.? Abdomen: Soft and nontender.? Skin: Skin warm and dry.? Normal skin color.? Normal skin turgor.? Extremities: No lower extremity edema.? No calf ttp. 5/5 strength to bilateral upper and lower extremities 2+ dorsalis pedis, anterior tibialis and posterior tibialis pulses equal bilateral. Capillary refill less than 2 seconds to bilateral lower extremity toes, normal sensation to lower extremities. Ambulatory with steady gait. No pain with palpation to bilateral feet. No foot drop. Back: No midline tenderness, no C-spine tenderness, full range of motion, no CVA tenderness bilaterally Neuro: Oriented X 3.? No motor deficit.? No sensory deficit. CN 2-12 intact Course Reevaluation(s) Reevaluation #1: X-ray of right foot unremarkable. Normal right ankle. At this time patient to be discharged home will give Toradol, crutches. Will have her follow-up with orthopedics if pain persist. Educated patient on diagnosis and treatment plan, answered all question, patient verbalizes understanding. At this time patient will be discharged home, advised to return with new or worsening symptoms. Educated on worrisome signs and symptoms and when to return. At this time I feel comfortable discharge home. Time: 01:18 Medications Administered Discontinued Medications Generic Name Dose Route Start Last Admin Trade Name Freq PRN Reason Stop Dose Admin Ketorolac Tromethamine 30 mg 07/05/22 01:15 07/05/22 01:21 Ketorolac Tromethamine 30 Mg/Ml Vial IM 07/05/22 01:16 30 mg ONCE ONE Administration Medical Decision Making Medical Decision Making MDM Narrative: 27-year-old female presents with right foot pain status post playing volleyball. Physical exam No lower extremity edema.? No calf ttp. 5/5 strength to bilateral upper and lower extremities 2+ dorsalis pedis, anterior tibialis and posterior tibialis pulses equal bilateral. Capillary refill less than 2 seconds to bilateral lower extremity toes, normal sensation to lower extremities. Ambulatory with steady gait. No pain with palpation to bilateral feet. No foot drop.. Likely sprain, strain, contusion. Unlikely fracture, dislocation. No signs of neurovascular compromise or threatened limb. Plan x-rays Differential Diagnosis Differential Diagnoses: The differential diagnosis associated with the presentation includes Likely sprain, strain, contusion. Unlikely fracture, dislocation. No signs of neurovascular compromise or threatened limb. Admission/Observation Consideration of admission/observation: Escalation of care including admission/observation considered Independent Interpretation I performed an independent interpretation of an: Plain X-Ray (Unremarkable) Radiology Impression Discussion of test interpretation with radiology: I have reviewed the radiologist's reading. Core Measures AMI core measures followed: Yes Measure exclusions: not indicated Critical Care Time Critical Care Time Critical Care Time: No Discharge Plan Discharge Clinical Impression: Acute foot pain Patient Disposition: Home, Self-Care Instructions: Crutch Instructions (ED), Arthralgia (ED) Additional Instructions: Take your medications as prescribed. If you were prescribed antibiotics today, it is important that you take your medication to their entirety, do not skip any doses, do not finish them early. Follow-up with your primary care provider this week. Follow-up with orthopedics if needed Return to the emergency department with new or worsening symptoms. Such as fevers, chills, chest pain, shortness of breath, nausea, vomiting, dizziness, headache, vision changes, lethargy, numbness and tingling In case of emergency call 911 Toradol has been sent to your pharmacy, you tolerated this well in the department. Please take this as prescribed do not take this with ibuprofen, or other NSAIDs, do not mix this with alcohol. Side effects of this medication including increased risk for bleeding and possible kidney injury. Prescriptions: New ketorolac 10 mg tablet 10 mg PO TID PRN (Reason: pain) 5 Days Qty: 15 0RF No Action albuterol sulfate [ProAir HFA] 90 mcg/actuation HFA aerosol inhaler 2 puff inhalation Q4-6H PRN (Reason: shortness of breath or wheezing) Qty: 8.5 2RF epinephrine [EpiPen] 0.3 mg/0.3 mL auto-injector 0.3 mg IM ONCE PRN (Reason: anaphylaxis) Qty: 2 0RF Rx Instructions: for 2 doses prenat.vits,seymour,[id number] Tablet 1 tab PO DAILY 90 Days Qty: 90 6RF sulfamethoxazole-trimethoprim [Bactrim DS] 800-160 mg tablet 1 tab PO Q12H 10 Days Qty: 20 0RF ibuprofen 800 mg tablet 800 mg PO Q8H PRN (Reason: pain) 14 Days Qty: 42 0RF Referrals: Magnus Hampton MD [Primary Care Provider] - 2 days [facility] [place] [facility] [Provider Group] - 1 week
[2022-07-05 01:15] VITALS: BP 132/80; PULSE 100; RESP 18; TEMP 36.7; O2SAT 99
[2022-07-05] MEDS: Ketorolac Tromethamine 30 MG/ML VIAL IM (01:21)
--- NOTE | 2022-07-05 01:37 | PC.NURSE ---
while playing volleyball pt's R foot stepped on pt c/o of R foot pain, some swelling observed, CMS intact no apparent distress, resting quietly while on phone aox 4
--- NOTE | 2022-07-05 01:39 | PC.NURSE ---
Discharge instructions given and explained to pt No apparent distress ambulates safely and independently w/ crutches provided by provider [email or web address]
== END 2022-07-05 01:50 | disposition home or self-care (01) ==
PROVIDERS: Emergency Provider Emergency Medicine; PCP Family Medicine
DX: M79.671 Pain in right foot (principal)
CPT/HCPCS: 73600; 73620; 96372; 99284; J1885

== ENCOUNTER 2022-09-30 18:38 | Emergency (ER) | payer OTHER, SELFPAY ==
--- NOTE | ~2022-09-30 | XR_ITS ---
EXAMINATION: XR CHEST CLINICAL INFORMATION: Wheezing. COMPARISON: 02/19/2020 TECHNIQUE: Frontal view of the chest was obtained. FINDINGS: The cardiomediastinal silhouette is normal. There is no focal lung consolidation or pleural effusion. The bony structures and soft tissues are unremarkable. XR/XR chest 1V IMPRESSION: No active cardiopulmonary disease.
--- NOTE | 2022-09-30 18:52 | ED.GENADULT ---
HPI - General Adult General Chief complaint: Dyspnea Stated complaint: asthma, wheezing, cough Time Seen by Provider: 09/30/22 23:17 Source: patient Mode of arrival: ambulatory Limitations: no limitations History of Present Illness HPI narrative: 27-year-old female presents with shortness of breath, wheezing and asthma exacerbation. Symptoms are severe. They are worsened with exertion. She denies any chest pain. She does have a cough but no mucus production. She has had no fevers or chills. She started off using her inhaler which started to improve her symptoms but then stopped. She then has gone to nebulizer treatments which are also not working as well. She can barely go upstairs and is having increasing fatigue. Related Data Previous Rx's Medication Instructions Recorded prenat.vits,seymour,[id number] 1 tab PO DAILY 90 days #90 tabs 02/16/20 albuterol sulfate 90 mcg/actuation 2 puff inhalation Q4-6H PRN 08/28/20 aerosol inhaler (ProAir HFA) shortness of breath or wheezing #8.5 grams epinephrine 0.3 mg/0.3 mL 0.3 mg (0.3 mL) IM ONCE PRN 10/23/20 injection, auto-injector (EpiPen) anaphylaxis #2 ea ibuprofen 800 mg tablet 800 mg PO Q8H PRN pain 14 days #42 07/19/21 tabs sulfamethoxazole 800 1 tab PO Q12H 10 days #20 tabs 07/19/21 mg-trimethoprim 160 mg tablet (Bactrim DS) ketorolac 10 mg tablet 10 mg PO TID PRN pain 5 days #15 07/05/22 tabs azithromycin 250 mg tablet 250 mg PO DAILY 4 days #4 tabs 09/30/22 fluticasone 250 mcg-salmeterol 50 1 inh inhalation BID #60 ea 09/30/22 mcg/dose blistr powdr for inhalation (Advair Diskus) prednisone 50 mg tablet 50 mg PO DAILY #5 tabs 09/30/22 Allergies Allergy/AdvReac Type Severity Reaction Status Date / Time omalizumab [From XOLAIR] Allergy Severe HIVES AND Verified 07/19/21 14:10 THROAT CLOSING Penicillins [PENICILLINS] Allergy Severe UNKNOWN Verified 07/19/21 14:10 amoxicillin [AMOXICILLIN] Allergy Intermediate UNKNOWN, Verified 07/19/21 14:10 anaphylaxis,rash cetirizine [From ZYRTEC] Allergy Intermediate SHORTNESS Verified 07/19/21 14:10 OF BREATH vancomycin [VANCOMYCIN] Allergy Intermediate RASH, Verified 07/19/21 14:10 itching animal dander Allergy Unknown HIVES Verified 07/19/21 14:10 loratadine [LORATADINE] Allergy Unknown THROAT Verified 07/19/21 14:10 SWELLING, hives SEAFOOD Allergy Severe ANAPHYLAXIS Uncoded 07/19/21 14:10 GRASS Allergy Mild HIVES Uncoded 07/19/21 14:10 penicillin AdvReac Unknown anaphylaxis Uncoded 07/19/21 14:10 ,rash Review of Systems Review of Systems: CONSTITUTIONAL: Denies weight loss, fever and chills. HEENT: Denies changes in vision and hearing. RESPIRATORY: + SOB and cough. CV: Denies palpitations no CP. GI: Denies abdominal pain, nausea, vomiting and diarrhea. : Denies dysuria and urinary frequency. MSK: Denies myalgia and joint pain. SKIN: Denies rash and pruritus. NEUROLOGICAL: Denies headache and syncope. PSYCHIATRIC: Denies recent changes in mood. Denies anxiety and depression. All other ROS are negative unless in HPI PMFSH Past Medical History Medical History Asthma Tachycardia Surgical History H/O wisdom tooth extraction Family History Family History Father Stroke Diabetes Hypertension Paternal Grandmother Pacemaker Social History Social History Housing: Apartment Alcohol intake: never Patient Tobacco Use Status: Never used Tobacco e-Cigarette/Vaping Use: Never Used Advance Directives: No Advance Directives Information Provided: No Current occupational status: employed Cognitive needs: No Hearing needs: No Vision needs: No Physical Exam ED Vital Signs: Vital Signs - 24 hr 09/30/22 18:53 09/30/22 23:20 Temperature 98.5 F Pulse Rate 112 H 110 H Respiratory Rate 18 18 Blood Pressure 138/82 Pulse Oximetry 95 Oxygen Delivery Method Room Air BMI result Body Mass Index 29.9 GEN: Well developed, no acute distress, alert, oriented HEENT: Normocephalic, atraumatic, normal external ears, nose appears normal, no oropharyngeal edema or exudates Eyes: Normal to appearance Neck: Supple, no lymphadenopathy Respiratory: Talks in complete sentences, no respiratory distress, clear to auscultation bilaterally Cardiovascular: Regular rate and rhythm, no murmurs rubs or gallops Abdomen: Soft, nontender, nondistended, no guarding, no rebound Back: No CVA tenderness Extremities: No clubbing cyanosis or edema Neurologic: No focal neurologic deficits, cranial nerves 2-12 intact, strength is 5/5 bilaterally Skin: No rash Course Course Course Narrative: This is an RME: Additional HPI, ROS, PE not included below will be deferred to primary provider. Patient is a 27 year old female who presents saying that she has been having a week of asthma attacks. She uses her nebulizer every 5 hours and reports this is her third exacerbation this year. She believes it may be attributed to dust. Denies nausea, vomiting, fever, or chills. Plan: albuterol, decadron, imaging Medications Administered Discontinued Medications Generic Name Dose Route Start Last Admin Trade Name Freq PRN Reason Stop Dose Admin Albuterol Sulfate 10 mg 09/30/22 18:52 09/30/22 23:20 Albuterol Sulfate 2.5 Mg/0.5 Ml Vial.Neb INHALE 09/30/22 18:53 10 mg ONCE ONE Administration Medical Decision Making Medical Decision Making [facility] Narrative: 27-year-old female with history of asthma presents with asthma exacerbation going on for approximately 10 days. Examination was actually fairly unremarkable with sparse wheezes on the right lung. She did appear slightly dyspneic. Oxygen saturation look good. She is currently receiving a nebulizer. An x-ray has been ordered which I will review for evidence of pneumonia. Bronchial cuffing. Differential diagnosis includes pneumonia, bronchitis, asthma exacerbation, viral syndrome. Will also provide patient with steroids and antibiotics. Differential Diagnosis Differential Diagnoses: The differential diagnosis associated with the presentation includes (See above) Asthma exacerbation Independent Interpretation I performed an independent interpretation of an: Plain X-Ray (Chest: No acute cardiopulmonary disease) Prescription Management I considered prescription management with: Antibiotic Chronic Conditions Patient?s care impacted by: Other (Asthma) Discharge Plan Discharge Clinical Impression: Asthma with exacerbation Patient Disposition: Home, Self-Care Instructions: Asthma (DC), How to Use a Metered-Dose Inhaler (ED) Prescriptions: New fluticasone propion-salmeterol [Advair Diskus] 250-50 mcg/dose blister with device 1 inh inhalation BID Qty: 60 0RF prednisone 50 mg tablet 50 mg PO DAILY Qty: 5 0RF azithromycin 250 mg tablet 250 mg PO DAILY 4 Days Qty: 4 0RF Rx Instructions: start on day 2 of therapy No Action albuterol sulfate [ProAir HFA] 90 mcg/actuation HFA aerosol inhaler 2 puff inhalation Q4-6H PRN (Reason: shortness of breath or wheezing) Qty: 8.5 2RF epinephrine [EpiPen] 0.3 mg/0.3 mL auto-injector 0.3 mg IM ONCE PRN (Reason: anaphylaxis) Qty: 2 0RF Rx Instructions: for 2 doses ketorolac 10 mg tablet 10 mg PO TID PRN (Reason: pain) 5 Days Qty: 15 0RF prenat.vits,seymour,[id number] Tablet 1 tab PO DAILY 90 Days Qty: 90 6RF sulfamethoxazole-trimethoprim [Bactrim DS] 800-160 mg tablet 1 tab PO Q12H 10 Days Qty: 20 0RF ibuprofen 800 mg tablet 800 mg PO Q8H PRN (Reason: pain) 14 Days Qty: 42 0RF Referrals: Magnus Hampton MD [Primary Care Provider] - 2 days
[2022-09-30 18:53] VITALS: BP 138/82; PULSE 112; RESP 18; TEMP 36.9; O2SAT 95; BMI 29.9
[2022-09-30 23:20] VITALS: PULSE 110; RESP 18; O2SAT 96
[2022-09-30] MEDS: Albuterol Sulfate 2.5 MG/0.5 ML VIAL.NEB 10 MG INHALE (23:20)
[2022-09-30] MEDS: predniSONE 20 MG TABLET 60 MG PO (23:39)
[2022-09-30] MEDS: Azithromycin 500 MG TABLET PO (23:39)
== END 2022-09-30 23:43 | disposition home or self-care (01) ==
PROVIDERS: Emergency Provider Emergency Medicine; PCP Family Medicine
DX: J45.901 Unspecified asthma with (acute) exacerbation (principal)
CPT/HCPCS: 71045; 94640; 99283; 99284

== ENCOUNTER 2022-12-21 12:58 | Emergency (ER) | payer OTHER, SELFPAY ==
[2022-12-21] VITALS (9 sets, daily range): BP systolic 109–134; BP diastolic 71–85; PULSE 104–143; RESP 16–22; TEMP 36.8–37.2; O2SAT 97–99; BMI 30.3
--- NOTE | ~2022-12-21 | XR_ITS ---
EXAMINATION: CHEST 2 VIEWS CLINICAL INFORMATION: shortness of breath. COMPARISON: 09/30/2022. TECHNIQUE: PA and lateral views of the chest obtained. FINDINGS: The lungs are well expanded. No focal infiltrate, effusion, edema, or pneumothorax. Cardiac and mediastinal silhouettes are within normal limits for technique. No acute bony abnormality seen XR/XR chest 2V IMPRESSION: No evidence of acute disease
--- NOTE | ~2022-12-21 | US_ITS ---
EXAMINATION: US OBSTETRICAL ULTRASOUND CLINICAL INFORMATION: Miscarriage. Bleeding one week after miscarriage. Rule out retained products of conception. COMPARISON: None available. TECHNIQUE: Transabdominal and transvaginal pelvic wound. Transvaginal exam was performed for better visualization of the uterus and ovaries. FINDINGS: The uterus is retroverted and measures 8.4 x 4.4 x 6 cm in dimension. No focal uterine lesion. No intrauterine seen. Endometrial thickness measures 1 cm. The endometrium is slightly heterogeneous. This does not appear hypervascular. The cervix is normal. The ovaries are normal. The right ovary measures 2 x 1.6 x 1.2 cm. The left ovary measures 2.4 x 1.9 x 1.3 cm. There is no fluid in the pelvis. US/US OB pelvic and transvaginal IMPRESSION: No intrauterine seen. Slightly thickened heterogeneous avascular endometrium. Blood clot or endometritis is favored over retained products of conception.
--- NOTE | 2022-12-21 13:16 | ECG_ITS ---
Test Reason : DYSPNEA Blood Pressure : / mmHG Vent. Rate : 119 BPM Atrial Rate : 119 BPM P-R Int : 152 ms QRS Dur : 074 ms QT Int : 328 ms P-R-T Axes : 074 068 046 degrees QTc Int : 461 ms Sinus tachycardia Otherwise normal ECG When compared with ECG of 18-FEB-2020 23:16, Nonspecific T wave abnormality no longer evident in Inferior leads Heart rate has decreased Referred By: Liliya Gaines Electronically Signed By:KEN CRYSTAL MD
[2022-12-21] MEDS: 0.9 % Sodium Chloride 1,000 ML 999 ML IV (13:28)
--- NOTE | 2022-12-21 13:40 | ED_ITS ---
HPI - SOB/Dyspnea General Chief Complaint: Dyspnea Stated Complaint: ASTHMA EXAC,MISCARRIAGE PER EMS Time Seen by Provider: 12/21/22 13:03 Source: patient Mode of arrival: EMS Limitations: no limitations History of Present Illness HPI Narrative: patient is a 27-year-old female who presents emergency department via EMS with concerns for asthma exacerbation. She reports shortness of breath difficulty breathing and upper respiratory symptoms since 12/15/2022, typically her symptoms improved with use of her inhalers and nebulizer but she has not had much relief with this. She denies associated fevers, chills, chest pain. She states that she is also a scary, reporting last menstrual period 10/06/2022, followed by [facility], G3 T2 L2; reports 10 week ultrasound obtained on 12/11/2022 revealing gestational age of 7 weeks, on 12/14/2022 she began bleeding with active clots, reporting that she has continued to pass clots, denies pelvic/lower abdominal / back pain, did not receive any methotrexate, she has a follow-up with her OBGYN reportedly tomorrow. Related Data Previous Rx's Medication Instructions Recorded prenat.vits,seymour,[id number] 1 tab PO DAILY 90 days #90 tabs 02/16/20 albuterol sulfate 90 mcg/actuation 2 puff inhalation Q4-6H PRN 08/28/20 aerosol inhaler (ProAir HFA) shortness of breath or wheezing #8.5 grams epinephrine 0.3 mg/0.3 mL 0.3 mg (0.3 mL) IM ONCE PRN 10/23/20 injection, auto-injector (EpiPen) anaphylaxis #2 ea ibuprofen 800 mg tablet 800 mg PO Q8H PRN pain 14 days #42 07/19/21 tabs sulfamethoxazole 800 1 tab PO Q12H 10 days #20 tabs 07/19/21 mg-trimethoprim 160 mg tablet (Bactrim DS) ketorolac 10 mg tablet 10 mg PO TID PRN pain 5 days #15 07/05/22 tabs azithromycin 250 mg tablet 250 mg PO DAILY 4 days #4 tabs 09/30/22 fluticasone 250 mcg-salmeterol 50 1 inh inhalation BID #60 ea 09/30/22 mcg/dose blistr powdr for inhalation (Advair Diskus) prednisone 50 mg tablet 50 mg PO DAILY #5 tabs 09/30/22 albuterol sulfate 2.5 mg/3 mL 2.5 mg (3 mL) inhalation Q4-6H PRN 12/21/22 (0.083 %) solution for nebulization shortness of breath or wheezing #90 mL prednisone 20 mg tablet 40 mg (2 x 20 mg) PO DAILY 4 days 12/21/22 #8 tabs Allergies Allergy/AdvReac Type Severity Reaction Status Date / Time omalizumab [From XOLAIR] Allergy Severe HIVES AND Verified 07/19/21 14:10 THROAT CLOSING Penicillins [PENICILLINS] Allergy Severe UNKNOWN Verified 07/19/21 14:10 amoxicillin [AMOXICILLIN] Allergy Intermediate UNKNOWN, Verified 07/19/21 14:10 anaphylaxis,rash cetirizine [From ZYRTEC] Allergy Intermediate SHORTNESS Verified 07/19/21 14:10 OF BREATH vancomycin [VANCOMYCIN] Allergy Intermediate RASH, Verified 07/19/21 14:10 itching animal dander Allergy Unknown HIVES Verified 07/19/21 14:10 loratadine [LORATADINE] Allergy Unknown THROAT Verified 07/19/21 14:10 SWELLING, hives SEAFOOD Allergy Severe ANAPHYLAXIS Uncoded 07/19/21 14:10 GRASS Allergy Mild HIVES Uncoded 07/19/21 14:10 penicillin AdvReac Unknown anaphylaxis Uncoded 07/19/21 14:10 ,rash Review of Systems 2 Review of Systems: Yes all other systems are reviewed and are negative PMFSH Past Medical History Attestation statement: The following information was validated with the patient. Source: old records reviewed Medical History Tachycardia Asthma Surgical History H/O wisdom tooth extraction Family History Family History Father Stroke Diabetes Hypertension Paternal Grandmother Pacemaker Social History Social History Housing: Apartment Alcohol intake: never Patient Tobacco Use Status: Never used Tobacco Smoked in Last 30 Days: No e-Cigarette/Vaping Use: Never Used Use of substances other than those prescribed or required for medical reasons: No Advance Directives: No Advance Directives Information Provided: No Patient : Yes Current occupational status: employed Cognitive needs: No Hearing needs: No Vision needs: No Physical Exam 2 Vital Signs: Vital Signs: Last Vital Signs Temp 98.3 F 12/21/22 16:23 Pulse 104 H 12/21/22 16:23 Resp 16 12/21/22 16:23 BP 129/85 12/21/22 16:23 Pulse Ox 97 12/21/22 16:23 O2 Del Method Room Air 12/21/22 16:23 BMI result Body Mass Index 30.3 Appearance: Alert.?Oriented to person, place and time. No acute distress.?Normal affect. Eyes: Pupils equal, round and reactive to light.? ENT: Pharynx normal.?? TM normal bilaterally. Neck: Normal inspection.? Neck supple.?? no cervical lymphadenopathy CVS: Heart sounds normal. Normal heart rate and rhythm.? Pulses normal.?? Respiratory: increased work of breathing, no retractions, speaking clear full sentences. Lung sounds tight bilaterally, minimal airflow Abdomen: Soft and non-tender. Normoactive bowel sounds. No pulsatile mass.?? pelvic: Supervised by ED ENRIKE Reilly. Normal external appearance of urethra.? No lesions/lacerations or discharge or tenderness noted. No Bartholin cyst noted.? Speculum exam: normal appearance/palpation of vagina normal. scant vaginalactive bleeding noted.?No foreign bodies noted.? No vaginal tenderness noted.? Normal appearance of cervix. Normal palpation of cervix.? Cervical os is closed.? No abnormal cervical discharge noted.? No cervical mass.?? No cervical motion tenderness noted.? Negative chandelier sign.?Uterine size normal. Uterine consistency normal.? Bladder normal to palpation. Normal adnexa. Normal rectovaginal exam. Skin: Skin warm and dry.? Normal skin color.? Extremities: No lower extremity edema.? Neuro: Moves all extremities spontaneously. Sensation intact bilaterally. No focal neuro deficits. Ambulates with normal steady gait. Course Reevaluation(s) Reevaluation #1: CBC revealing leukocytosis of 11.2, no left shift. Microcytic anemia with hemoglobin 11.1 and hematocrit 35.6 ( this is with 6 days of vaginal bleeding). CMP overall unremarkable. Lactic acid is 2.2, patient received total of normal saline 2,500 mL IV fluid. O- positive, no indication for RhoGAM. Chest x-ray is without evidence of acute cardiopulmonary process. Time: 14:14 Reevaluation #2: Pelvic ultrasound indicating no intrauterine , slightly thickened heterogeneous avascular endometrium with blood clot or endometritis favored over retained products of conception, minimal vaginal bleeding at this time, upon examination, cervical Os is closed. stable for follow-up with OBGYN as scheduled tomorrow. Reports significant improvement in her breathing at this time, she continues to be tachycardic with pulse rate below 110, which she reports is baseline for her, she is followed by Cardiology, Dr. Reyes, has undergone outpatient studies without abnormal findings. She has yet to provide a urine sample, she denies dysuria, urinary frequency/ urgency / hesitancy. She would like to be discharged home at this time, declines waiting for urinalysis. At this time she is stable for discharge, recommended outpatient follow-up with her primary care provider, will send course of prednisone to pharmacy for asthma exacerbation in addition to albuterol nebulizer solution. Time: 15:59 Reevaluation #3: Medications Administered Discontinued Medications Generic Name Dose Route Start Last Admin Trade Name Freq PRN Reason Stop Dose Admin Sodium Chloride 1,000 mls @ 999 mls/hr 12/21/22 13:30 12/21/22 15:01 Ns IV 12/21/22 14:30 Infused .Q1H1M FREEMAN Infusion Sodium Chloride 1,500 mls @ 999 mls/hr 12/21/22 16:00 12/21/22 15:56 Ns IV 12/21/22 17:30 Infused .Q1H31M FREEMAN Infusion Prednisone 60 mg 12/21/22 14:08 12/21/22 14:14 Prednisone 20 Mg Tablet PO 12/21/22 14:09 60 mg ONCE ONE Administration Medical Decision Making Medical Decision Making MDM Narrative: patient is a 27-year-old female presenting to emergency department for evaluation of shortness of breath with expressed concern of asthma exacerbation associated with dry symptoms without improvement despite the use of home inhalers and nebulizers, notable increased work of breathing but she is managing secretions, speaking clear full sentences, lung sounds are type bilaterally with minimal air movement, tachypneic without hypoxia on room air, notably tachycardic; heart rate in the 120s. She is also actively miscarrying spontaneously by her account, has had vaginal bleeding for 1 week, no methotrexate was administered, denies any abdominal pain /lower back pain. Concern at this time for tachycardia secondary to asthma exacerbation, pre- hospital albuterol administration, verses symptomatic anemia verses retained products of conception. plan to obtain labs, chest x-ray, pelvic ultrasound, orders for ED bronch protocol ordered, and prednisone. Differential Diagnosis Differential Diagnoses: The differential diagnosis associated with the presentation includes ( As noted above) Admission/Observation Consideration of admission/observation: Escalation of care including admission/observation considered ( considered admission for shortness of breath/difficulty breathing, See course narrative for further detail) Lab Data MDM Lab Attestation statement: I reviewed the patient's lab results. ( see course narrative for further detail) 12/21/22 13:44 12/21/22 13:44 Labs: Lab Results 12/21/22 12/21/22 Range/Units 13:44 16:11 WBC 11.2 H (4.8-10.8) X10*3/uL RBC 5.06 (4.20-5.50) X10*6/uL Hgb 11.1 L (12.0-16.0) g/dl Hct 35.6 L (37.0-47.0) % MCV 70.4 L (80.0-98.0) fL MCH 21.9 L (27.0-33.0) pg MCHC 31.2 (31.0-35.0) g/dl RDW 14.5 (11.0-16.0) % Plt Count 231 (160-400) X10*3/uL Immature Gran % (Auto) 0.3 (0.0-0.4) % Neut % (Auto) 68.7 (45-73) % Lymph % (Auto) 15.2 L (20-40) % [place] % (Auto) 3.4 (2-11) % Eos % (Auto) 12.0 H (0-4) % Baso % (Auto) 0.4 (0-2) % Lymph # (Auto) 1.7 (1.2-4.9) X10*3/uL [place] # (Auto) 0.4 (0.1-1.2) X10*3/uL Eos # (Auto) 1.4 H (0.0-0.4) X10*3/uL Baso # (Auto) 0.0 (0.0-0.2) X10*3/uL Abs Immat Gran (auto) 0.03 (0.00-0.03) X10*3/uL Absolute Neuts (auto) 7.7 (2.0-8.3) x10*3/uL Absolute Nucleated RBC 0.000 (0.0-0.012) X10*3/uL Nucleated RBC % (auto) 0.0 (0.0-0.2) /100WBC PT 13.4 H (11.1-13.3) SEC INR 1.1 (0.9-1.1) Sodium 140 (135-145) mmol/L Potassium 3.3 (3.3-5.1) mmol/L Chloride 109 H (96-108) mmol/L Carbon Dioxide 20 L (22-29) mmol/L Anion Gap 14 (12-20) BUN 13 (9-16) mg/dL Creatinine 0.70 (0.5-1.4) mg/dL Estim Creat Clear Calc 125.7 Estimated GFR > 60 Random Glucose 109 (60-115) mg/dL Lactic Acid 2.2 H* (0.5-2.0) mmol/L Lactic Acid F/U @ 2Hr 1.4 (0.5-2.0) mmol/L Calcium 9.5 (8.4-10.2) mg/dL Magnesium 1.9 (1.6-2.6) mg/dL Total Bilirubin 0.2 (0.0-1.0) mg/dL AST 15 (5-31) U/L ALT 10 (0-31) U/L Alkaline Phosphatase 62 (39-117) U/L Total Protein 7.8 (6.5-8.0) g/dL Albumin 4.5 (3.5-5.0) g/dL Beta HCG, Quant 336 mIU/mL COVID-19 (KATHRYN) Negative (Negative) COVID-19 Clin Com See Note Influenza Type A (AILEEN) Negative (Negative) Influenza Type B (AILEEN) Negative (Negative) Influenza A & B Note See Note Blood Type O Positive Independent Interpretation I performed an independent interpretation of an: EKG, Plain X-Ray ( I personally interpreted chest x-ray and agree with radiologist impression) and Ultrasound Interpretation: Rate: 119 Rhythm:? sinus tachycardia [place]:? normal Normal P waves.? Normal KASH.?? Normal QRS complex.?? ST T wave :?? no ST elevation, no ST depression, no T-wave inversion qTC: 461 The study has been interpreted contemporaneously by me. Radiology Impression Discussion of test interpretation with radiology: I have reviewed the radiologist's reading. Radiologist Impression: US/US OB pelvic and transvaginal IMPRESSION: No intrauterine seen. Slightly thickened heterogeneous avascular endometrium. Blood clot or endometritis is favored over retained products of conception. Independent Historian Clinical information obtained from an independent historian. History obtained from or confirmed by: EMS Prescription Management I considered prescription management with: Other ( Prednisone, albuterol) Critical Care Time Critical Care Time Critical Care Time: Yes Total Critical Care Time: 35 Attestation: I personally attest to this critical care time spent taking care of the patient exclusive of all other billable procedures was [id number] minutes including initial evaluation of patient, ordering tests, x-ray interpretation, EKG interpretation, medical consultation, documentation, re-evaluation. Discharge Plan Discharge Clinical Impression: Asthma exacerbation, Spontaneous Patient Disposition: Home, Self-Care Prescriptions: New prednisone 20 mg tablet 40 mg PO DAILY 4 Days Qty: 8 0RF albuterol sulfate 2.5 mg /3 mL (0.083 %) solution for nebulization 2.5 mg inhalation Q4-6H PRN (Reason: shortness of breath or wheezing) Qty: 90 0RF No Action albuterol sulfate [ProAir HFA] 90 mcg/actuation HFA aerosol inhaler 2 puff inhalation Q4-6H PRN (Reason: shortness of breath or wheezing) Qty: 8.5 2RF epinephrine [EpiPen] 0.3 mg/0.3 mL auto-injector 0.3 mg IM ONCE PRN (Reason: anaphylaxis) Qty: 2 0RF Rx Instructions: for 2 doses fluticasone propion-salmeterol [Advair Diskus] 250-50 mcg/dose blister with device 1 inh inhalation BID Qty: 60 0RF prednisone 50 mg tablet 50 mg PO DAILY Qty: 5 0RF azithromycin 250 mg tablet 250 mg PO DAILY 4 Days Qty: 4 0RF Rx Instructions: start on day 2 of therapy ketorolac 10 mg tablet 10 mg PO TID PRN (Reason: pain) 5 Days Qty: 15 0RF prenat.vits,seymour,[id number] Tablet 1 tab PO DAILY 90 Days Qty: 90 6RF sulfamethoxazole-trimethoprim [Bactrim DS] 800-160 mg tablet 1 tab PO Q12H 10 Days Qty: 20 0RF ibuprofen 800 mg tablet 800 mg PO Q8H PRN (Reason: pain) 14 Days Qty: 42 0RF Referrals: Magnus Hampton MD [Primary Care Provider] - Interventions: ED Discharge Assessment Last Done: 12/21/22 16:23 Discharge Date/Time: 12/21/22 16:24
[2022-12-21 13:51] LABS: Basophils Percent Auto 0.4 % (0-2); MANUAL DIFF FLAG NO; Mean Corpuscular Volume 70.4 fL (80.0-98.0); Red Cell Distribution Width 14.5 % (11.0-16.0); SCAN SMEAR FLAG 1
[2022-12-21 13:53] LABS: Eosinophils Absolute Auto 1.4 X10*3/uL (0.0-0.4); Hematocrit 35.6 % (37.0-47.0); Hemoglobin 11.1 g/dl (12.0-16.0); Imm Gran Abs Auto 0.03 X10*3/uL (0.00-0.03); Imm Gran Pct Auto 0.3 % (0.0-0.4); Lymphocytes Absolute Auto 1.7 X10*3/uL (1.2-4.9); Lymphocytes Percent Auto 15.2 % (20-40); Mean Corpuscular HGB Conc 31.2 g/dl (31.0-35.0); Mean Corpuscular Hemoglobin 21.9 pg (27.0-33.0); Monocytes Absolute Auto 0.4 X10*3/uL (0.1-1.2); Monocytes Percent Auto 3.4 % (2-11); Neutrophils Absolute Auto 7.7 x10*3/uL (2.0-8.3); Neutrophils Percent Auto 68.7 % (45-73); PLT ABN DIST 1; Platelet Count 231 X10*3/uL (160-400); Red Blood Count 5.06 X10*6/uL (4.20-5.50); White Blood Count 11.2 X10*3/uL (4.8-10.8)
--- NOTE | 2022-12-21 13:54 | PC.NURSE ---
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 Ultrasound at bedside at this time
--- NOTE | 2022-12-21 13:55 | PC.NURSE ---
Patient is resting comfortably on stretcher at this time, respirations even and mildly labored. Satting well on room air, ambulatory around room with no issue
[2022-12-21 13:57] LABS: INTERNATIONAL NORM RATIO 1.1 (0.9-1.1); Prothrombin Time 13.4 SEC (11.1-13.3)
[2022-12-21 14:06] LABS: Lactic Acid 2.2 mmol/L (0.5-2.0)
[2022-12-21 14:08] LABS: Alanine Aminotransferase 10 U/L (0-31); Albumin Level 4.5 g/dL (3.5-5.0); Alkaline Phosphatase 62 U/L (39-117); Anion Gap 14 (12-20); Aspartate Amino Transferase 15 U/L (5-31); Bilirubin Total 0.2 mg/dL (0.0-1.0); Blood Urea Nitrogen 13 mg/dL (9-16); Calcium 9.5 mg/dL (8.4-10.2); Carbon Dioxide 20 mmol/L (22-29); Chloride 109 mmol/L (96-108); Creatinine Clr Calc Pharmacy 125.7; Estimated Glomerular Filt Rate > 60; Glucose Random 109 mg/dL (60-115); Magnesium 1.9 mg/dL (1.6-2.6); Potassium 3.3 mmol/L (3.3-5.1); Sodium 140 mmol/L (135-145); Total Protein 7.8 g/dL (6.5-8.0)
[2022-12-21] MEDS: predniSONE 20 MG TABLET 60 MG PO (14:14)
[2022-12-21] MEDS: 0.9 % Sodium Chloride 1,500 ML 999 ML IV (14:25)
[2022-12-21 14:28] LABS: COVID-19 Test Negative (Negative); IDNOW Serial# 08D9AD1C; IDNOW Serial# BCCEAD1C; Influenza A Negative (Negative); Influenza B2 Negative (Negative)
[2022-12-21 14:35] LABS: HCG Quantitative 336 mIU/mL
[2022-12-21 15:48] LABS: Reflex Lactate? Lactic Acid Added
[2022-12-21 16:30] LABS: ~Lactic Acid-LAB USE ONLY 1.4 mmol/L (0.5-2.0)
== END 2022-12-21 16:24 | disposition home or self-care (01) ==
PROVIDERS: Nurse Practitioner Family; Emergency Provider Emergency Medicine; PCP Family Medicine
DX: O03.9 Complete or unspecified spontaneous abortion without complication (principal); J45.901 Unspecified asthma with (acute) exacerbation; R00.0 Tachycardia, unspecified; D53.9 Nutritional anemia, unspecified; D72.829 Elevated white blood cell count, unspecified; R06.00 Dyspnea, unspecified; Z11.52 Encounter for screening for COVID-19
CPT/HCPCS: 71046; 76801; 76817; 80053; 83605; 83735; 84702; 85025; 85610; 86900; 86901; 87040; 87502; 87635; 93005; 96360; 96361; 99285

== ENCOUNTER 2023-01-21 15:34 | Outpatient (AMB) | payer OTHER, SELFPAY ==
--- NOTE | 2023-01-21 15:45 | MHC.PC.OV ---
Vital Signs 01/21/23 15:47 Height 5 ft 4 in Weight 176 lb 6 oz BMI 30.3 BP 100/64 Blood Pressure Location Lt brachial Position Sitting Respiration 12 Pulse 95 Pulse Source Pulse Oximeter Pulse Oximetry (%) 99 Oxygen Delivery Method Room Air Intake Visit Reasons: [facility] ed follow up Intake Note: Patient is here to follow up from [facility] for difficulty breathing and rapid heart rate. Patient would like a referral to pulmonology. Patient reports during this time she had a miscarriage. Patient needs a refill for her nebulizer solution, inhaler, and epi-pen. Screen Printing Inspector Required: No Accompanied by: Self / Same As Patient Allergies omalizumab [From XOLAIR] Allergy (Severe, Verified 01/21/23 15:50) HIVES AND THROAT CLOSING Penicillins [PENICILLINS] Allergy (Severe, Verified 01/21/23 15:50) UNKNOWN amoxicillin [AMOXICILLIN] Allergy (Intermediate, Verified 01/21/23 15:50) UNKNOWN, anaphylaxis,rash cetirizine [From ZYRTEC] Allergy (Intermediate, Verified 01/21/23 15:50) SHORTNESS OF BREATH vancomycin [VANCOMYCIN] Allergy (Intermediate, Verified 01/21/23 15:50) RASH, itching animal dander Allergy (Unknown, Verified 01/21/23 15:50) HIVES loratadine [LORATADINE] Allergy (Unknown, Verified 01/21/23 15:50) THROAT SWELLING, hives SEAFOOD Allergy (Severe, Uncoded 01/21/23 15:50) ANAPHYLAXIS GRASS Allergy (Mild, Uncoded 01/21/23 15:50) HIVES penicillin Adverse Reaction (Unknown, Uncoded 01/21/23 15:50) anaphylaxis,rash Tobacco use date assessed: 01/21/23 Dental Screening Dental Screen Date: 01/21/23 Did you have a dental visit in the last 12 months?: Yes Did you have a dental problem in the last 6 months where you did not have access to dental care?: No Was dental information given to patient?: Patient has dentist HPI [facility] ed follow up HPI Details 28 y/o female presents to f/u [facility] visit 12/21/22 for asthma exacerbation. She had reported shortness of breath, difficulty breathing and upper respiratory symptoms. Symptoms typically improve with use of inhalers and nebulizers but she reports she has not had much relief with this. She notes ongoing shortness of breath. She has not been using Advair as she had needed a refill of this. [facility] Medical History Tachycardia Asthma Surgical History H/O wisdom tooth extraction Family History (Updated 01/21/23 @ 15:55 by Bonnie Oquendo CMA) Father Stroke Diabetes Hypertension Paternal Grandmother Pacemaker Social History Housing: Apartment Alcohol intake: never Patient Tobacco Use Status: Never used Tobacco e-Cigarette/Vaping Use: Never Used Current occupational status: employed Cognitive needs: No Hearing needs: No Vision needs: No Questionnaire ACT Questionnaire In the past 4 weeks, how much of the time did your asthma keep you from getting as much done at work, school or at home?: All of the time During the past 4 weeks, how often have you had shortness of breath?: More than once a day During the past 4 weeks, how often did your asthma symptoms wake you up at night or earlier than usual in the morning?: 4 or more nights a week During the past 4 weeks, how often have you had to use your rescue inhaler or nebulizer medication?: More than 3 times per day How would you rate your asthma control during the past 4 weeks?: Not controlled at all ACT Interpretation: Positive Score: 5 Review of Systems Const Denies chills, Denies fatigue, Denies fever(s), Denies headache(s) and Denies weakness ENT Denies dizziness and Denies headache(s) Card Reports dyspnea Resp Reports dyspnea and Denies wheezing Musc Denies numbness and Denies tingling Neuro Denies dizziness, Denies headache(s), Denies numbness, Denies tingling, Denies paresthesias and Denies weakness Psych Denies anxiety and Denies depression Endo Denies fatigue Aller/Immun Denies wheezing Physical exam (Primary Care) Vital Signs: Last Vital Signs Pulse 95 01/21/23 15:47 Resp 12 01/21/23 15:47 BP 100/64 01/21/23 15:47 Pulse Ox 99 01/21/23 15:47 Oxygen Delivery Method Room Air 01/21/23 15:47 BMI result Body Mass Index 30.3 Tobacco/Smoking Status: Tobacco use Status Tobacco use date assessed 01/21/23 01/21/23 15:56 Patient Tobacco Use Status Never used Tobacco 01/21/23 15:47 e-Cigarette/Vaping Use Never Used 01/21/23 15:47 Const General: no acute distress and well developed Nutritional Appearance: well nourished Orientation/consciousness: patient oriented x3 HENMT Head: Yes normocephalic and Yes atraumatic Eyes General: appearance normal, both eyes and all related structures Pupils: Equal, round and reactive pupils present EOM: EOMs intact bilaterally Resp Other: R lung diminished breath sounds Effort & Inspection: normal respiratory effort Cardio Rate: regular rate Rhythm: regular rhythm Heart sounds: S1 normal heart sound present, S2 normal heart sound present, no gallops, no murmurs and no rubs Neuro General: patient oriented x3 and gait normal Cranial nerves: Yes Equal, round and reactive pupils present Psych Affect: normal affect Assessment and Plan Assessment & Plan (1) Moderate persistent asthma: Code(s): J45.40 - Moderate persistent asthma, uncomplicated Plan: Poorly?controlled?moderate?persistent?asthma. Patient?has?had?more?than?2?hospital?visits?for?asthma?exacerbations?this?year She?only?has?albuterol?but?does?not?have?her?controller?medication.??I?have?refilled?this.??Refilling?her?ProAir?inhaler?as?well (2) Abnormal lung sounds: Code(s): R09.89 - Other specified symptoms and signs involving the circulatory and respiratory systems Plan: A?few?scant?wheezes?on?the?left. Patient?has?diminished?breath?sounds?throughout?the?right?lung?pacheco Checking?chest?x-ray Resuming?her?inhaled?medications?and?I?have?referred?her?to?pulmonology (3) Spontaneous : Code(s): O03.9 - Complete or unspecified spontaneous without complication Plan: Patient?feels?well?today. Follow-up?with?professor of environmental studies?as?recommended (4) Tachycardia: Code(s): R00.0 - Tachycardia, unspecified Plan: She?had?had?mild?tachycardia?which?is?likely?secondary?to?poorly?controlled?asthma This?will?hopefully?improve?with?better?control?of?her?asthma Heart?rate?today?is?at?top?of?normal?limit Plan Patient?had?had?elevated?lactic?acid?at?the?hospital?is?likely?secondary?to?her?respiratory?issues Repeating?lab?work Orders: Orders XR chest 2V Today J45.909 - Unspecified asthma, uncomplicated, R09.89 - Other specified symptoms and signs involving the circulatory and respiratory systems Comprehensive Met. Panel Today J45.909 - Unspecified asthma, uncomplicated Complete Blood Count Auto Diff Today J45.909 - Unspecified asthma, uncomplicated, Z00.00 - Encounter for general adult medical examination without abnormal findings Lactic Acid Today J45.90 - Unspecified asthma, uncomplicated Referrals Pulmonology Referral J45.90 - Unspecified asthma, uncomplicated Medications: Changed From fluticasone propion-salmeterol 250-50 mcg/dose (Advair Diskus) 1 inh inhalation BID 60 ea 0RF To fluticasone propion-salmeterol 250-50 mcg/dose (Advair Diskus) 1 inh inhalation BID 60 ea 2RF 30 days From albuterol sulfate 90 mcg/actuation (ProAir HFA) 2 puffs inhalation Q4-6H PRN 8.5 grams 2RF shortness of breath or wheezing J45.909 - Unspecified asthma, uncomplicated To albuterol sulfate 90 mcg/actuation (ProAir HFA) 2 puffs inhalation Q4-6H PRN 8.5 grams 2RF shortness of breath or wheezing 30 days J45.909 - Unspecified asthma, uncomplicated Coding Level of Care Code Est Pt Level 3 (25225) Diagnoses Moderate persistent asthma J45.40 Abnormal lung sounds R09.89 Spontaneous O03.9 Tachycardia R00.0
[2023-01-21 15:47] VITALS: BP 100/64; PULSE 95; RESP 12; O2SAT 99; BMI 30.3
== END 2023-01-21 16:22 | disposition home or self-care (01) ==
PROVIDERS: PCP Family Medicine; Visit Provider Family Medicine
DX: J45.40 Moderate persistent asthma, uncomplicated (principal); R09.89 Other specified symptoms and signs involving the circulatory and respiratory systems; O03.9 Complete or unspecified spontaneous abortion without complication; R00.0 Tachycardia, unspecified; J45.909 Unspecified asthma, uncomplicated
CPT/HCPCS: 99213

== ENCOUNTER 2023-01-27 15:33 | Outpatient (REF) | payer OTHER, SELFPAY ==
--- NOTE | ~2023-01-27 | XR_ITS ---
EXAMINATION: XR CHEST CLINICAL INFORMATION: Uncomplicated asthma COMPARISON: Chest of 12/21/2022 TECHNIQUE: 2 views of the chest were obtained. FINDINGS: There is no gross pneumothorax. Heart size is normal. No pleural effusion. No focal consolidation to suggest pneumonia. XR/XR chest 2V IMPRESSION: No evidence of pneumonia.
== END 2023-01-27 15:34 | disposition home or self-care (01) ==
LOC: HO.XRAY 15:33
PROVIDERS: PCP Family Medicine; Visit Provider Family Medicine
DX: J45.909 Unspecified asthma, uncomplicated (principal); R09.89 Other specified symptoms and signs involving the circulatory and respiratory systems
CPT/HCPCS: 71046

== ENCOUNTER 2023-01-28 15:31 | Outpatient (AMB) | payer OTHER, SELFPAY ==
[2023-01-28 15:38] VITALS: BP 112/60; PULSE 87; O2SAT 98; BMI 29.9
--- NOTE | 2023-01-28 15:38 | A.OFFVIS_ITS ---
Intake Vital Signs 01/28/23 15:38 Height 5 ft 4 in Weight 174 lb BMI 29.9 BP 112/60 Blood Pressure Location Rt brachial Position Sitting Pulse 87 Pulse Source Pulse Oximeter Pulse Oximetry (%) 98 Oxygen Delivery Method Room Air Intake Visit Reasons: asthma Cam Maker Required: No Plywood Layup Line Core Layer: Plywood Layup Line Core Layer offered & declined Accompanied by: Self / Same As Patient Allergies omalizumab [From XOLAIR] Allergy (Severe, Verified 01/28/23 15:43) HIVES AND THROAT CLOSING Penicillins [PENICILLINS] Allergy (Severe, Verified 01/28/23 15:43) UNKNOWN amoxicillin [AMOXICILLIN] Allergy (Intermediate, Verified 01/28/23 15:43) UNKNOWN, anaphylaxis,rash cetirizine [From ZYRTEC] Allergy (Intermediate, Verified 01/28/23 15:43) SHORTNESS OF BREATH vancomycin [VANCOMYCIN] Allergy (Intermediate, Verified 01/28/23 15:43) RASH, itching animal dander Allergy (Unknown, Verified 01/28/23 15:43) HIVES loratadine [LORATADINE] Allergy (Unknown, Verified 01/28/23 15:43) THROAT SWELLING, hives SEAFOOD Allergy (Severe, Uncoded 01/28/23 15:43) ANAPHYLAXIS GRASS Allergy (Mild, Uncoded 01/28/23 15:43) HIVES penicillin Adverse Reaction (Unknown, Uncoded 01/28/23 15:43) anaphylaxis,rash Medication List - Last Reconciled 01/28/23 by Claire Fajardo LPN albuterol sulfate 2.5 mg (3 mL) inhalation Q4-6H PRN albuterol sulfate 90 mcg/actuation (ProAir HFA) 2 puffs inhalation Q4-6H PRN 30 days epinephrine (EpiPen) 0.3 mg (0.3 mL) IM ONCE PRN fluticasone propion-salmeterol 250-50 mcg/dose (Advair Diskus) 1 inh inhalation BID 30 days ibuprofen 800 mg PO Q8H PRN 14 days prenat.vits,seymour,mtc-dndb-irpxm 1 tab PO DAILY 90 days HPI asthma HPI Details Edcarlos is a pleasant 28 year old female, never smoker with underlying asthma since childhood. She was referred by PCP for pulmonary evaluation. She has been evaluated by PCP and [facility] in the past for asthma exacerbations. She reports multiple family members with significant allergies and asthma. She denies occupational exposures. She reports history of seasonal allergies as well as drug allergies including xolair, zyrtec and claritin. 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 She reports PCP recently prescribed Advair which she has been off of for the past two months but is awaiting the pharmacy to fill the prescription. She reports moderate control at baseline when using inhaler however does report dyspnea with moderate exertion and intermittent wheezing and cough. Today denies any respiratory symptoms. She uses her albuterol MDI/nebulizer infrequently and reports good effect when experiencing symptoms. [facility] Medical History (Updated 01/28/23 @ 16:05 by Nadine Flores NP) Tachycardia Asthma Surgical History H/O wisdom tooth extraction Family History (Updated 01/21/23 @ 15:55 by Bonnie Oquendo CMA) Father Stroke Diabetes Hypertension Paternal Grandmother Pacemaker Social History (Updated 01/28/23 @ 15:45 by Claire Fajardo LPN) Housing: Apartment Alcohol intake: never Patient Tobacco Use Status: Never used Tobacco e-Cigarette/Vaping Use: Never Used Current occupational status: employed Cognitive needs: No Hearing needs: No Vision needs: No Review of Systems Const Denies chills, Denies excessive sweating, Denies fever(s), Denies headache(s) and Denies night sweats Eyes Denies dry eyes, Denies irritation and Denies itchy eyes ENT Reports Normal hearing present, Denies headache(s), Denies nasal congestion, Denies nasal discharge, Denies post nasal drip and Denies sore throat Card Denies chest pain, Denies chest pain at rest, Denies chest pain with activity, Denies claudication, Denies leg edema, Denies dyspnea, Denies dyspnea on exertion, Denies orthopnea and Denies paroxysmal nocturnal dyspnea Resp Denies chest congestion, Denies cough, Denies excessive phlegm production, Denies pain on inspiration, Denies pain with cough, Denies dyspnea, Denies dyspnea on exertion, Denies stridor and Denies wheezing Musc Denies myalgias Neuro Reports Normal hearing present and Denies headache(s) Endo Denies excessive sweating Nicholas/Lymph Denies lymphadenopathy Aller/Immun Denies itchy eyes, Denies seasonal rhinorrhea and Denies wheezing Physical Exam Vital Signs: Last Vital Signs Pulse 87 01/28/23 15:38 BP 112/60 01/28/23 15:38 Pulse Ox 98 01/28/23 15:38 Oxygen Delivery Method Room Air 01/28/23 15:38 BMI result Body Mass Index 29.9 Const General: cooperative, healthy appearing, comfortable, no acute distress, well developed and alert Orientation/consciousness: patient oriented x3 Limitations: no limitations HEENT Head: Yes normal to inspection, Yes normocephalic and Yes atraumatic Ears: hearing grossly normal bilaterally and external ears normal Eyes General: appearance normal, both eyes and all related structures Eyelids: Yes eyelids normal Sclerae: sclerae normal EOM: EOMs intact bilaterally Neck Neck: Yes normal visual inspection and Yes no lymphadenopathy Lymphatic: no lymphadenopathy noted Chest Chest palpation & inspection: normal inspection of the chest Resp Effort & Inspection: normal respiratory effort, able to speak in complete sentences, no audible wheezes, no cough, no stridor, not tachypneic, no tripod positioning and no use of accessory muscles Auscultation: clear to auscultation bilaterally Cardio Jugular venous distension: no JVD Rate: regular rate Rhythm: regular rhythm Skin Other: warm, dry General skin exam: no rashes or lesions noted Neuro General: patient oriented x3 Cranial nerves: Yes Normal hearing present Cognition (Neuro): normal cognition Gait exam (Neuro): Normal gait present Extrem General: Yes normal to inspection, Yes capillary refill normal, Yes no clubbing, cyanosis or edema and Yes no pedal edema Psych Appearance: grossly normal and well kempt Speech and movement: Normal speech and movement present and Clear speech present Affect: normal affect Attitude: cooperative Thought process: Normal thought process present Thought content: Normal thought content present Insight: Good insight present (Psych) Judgement: Good judgement present (Psych) Assessment & Plan Assessment & Plan (1) Asthma: Code(s): J45.909 - Unspecified asthma, uncomplicated (2) Environmental and seasonal allergies: Code(s): J30.89 - Other allergic rhinitis Plan Edeni's symptoms are likely from underlying asthma with an allergic component. Will send for PFT and RAST to evaluate. Will also send allergy referral as she noted multiple allergies to medications as well as environmental allergens. Advised to start Advair as soon as possible and if any issues obtaining, to call our office. She may need a higher dose or a possible biologic, however she has been without a maintenance inhaler for two months. All questions were answered and patient is in agreement of plan. Will follow up in 4-6 weeks to review results and response to inhaler or sooner if needed. Orders: Orders Resp Allergy Profile Region I 01/28/23 J30.89 - Other allergic rhinitis Immunoglobulin E 01/28/23 J30.89 - Other allergic rhinitis PFT pulmonary function test Today J45.909 - Unspecified asthma, uncomplicated Referrals Allergy & Immunology Referral J30.89 - Other allergic rhinitis, J45.909 - Unspecified asthma, uncomplicated Medications: Refilled epinephrine (EpiPen) for 2 doses 0.3 mg (0.3 mL) IM ONCE PRN 2 ea 0RF anaphylaxis T78.2XXA - Anaphylactic shock, unspecified, initial encounter Coding Level of Care Code New Pt Level 4 (80263) Diagnoses Asthma J45.909 Environmental and seasonal allergies J30.89
== END 2023-01-28 16:19 | disposition home or self-care (01) ==
PROVIDERS: PCP Family Medicine; Visit Provider Nurse Practitioner Family
DX: J45.909 Unspecified asthma, uncomplicated (principal); J30.89 Other allergic rhinitis
CPT/HCPCS: 99204

== ENCOUNTER → 2023-01-28 15:31 | Outpatient (BNVA) | payer OTHER, SELFPAY | PROVIDERS: PCP Family Medicine; Visit Provider Nurse Practitioner Family | DX: J30.89 Other allergic rhinitis (principal) | CPT/HCPCS: 99202 ==

== ENCOUNTER → 2023-06-17 10:27 | Outpatient (BNVA) | payer OTHER, SELFPAY | PROVIDERS: PCP Family Medicine; Visit Provider Physician Assistant | DX: S46.812A Strain of other muscles, fascia and tendons at shoulder and upper arm level, left arm, initial encounter (principal); W22.8XXA Striking against or struck by other objects, initial encounter | CPT/HCPCS: 99203 ==

== ENCOUNTER 2024-04-11 09:15 | Outpatient (AMB) | payer OTHER, SELFPAY ==
--- NOTE | 2024-04-11 09:18 | AM.OFFWIN_ITS ---
Intake Vital Signs 04/11/24 09:23 Height 5 ft 4 in Weight 180 lb 8 oz BMI 31.0 BP 98/68 Blood Pressure Location Rt brachial Position Sitting Respiration 12 Pulse 59 Pulse Source Pulse Oximeter Temp 96.9 F Temp Source Oral Pulse Oximetry (%) 100 Oxygen Delivery Method Room Air Intake Visit Reasons: ABDOMINAL PAIN/CONSTIPATION Intake Note: Patient complaining of abd px and constipation x 2weeks Patient Tobacco Use Status: Never used Tobacco Allergies omalizumab [From XOLAIR] Allergy (Severe, Verified 04/11/24 09:33) HIVES AND THROAT CLOSING Penicillins [PENICILLINS] Allergy (Severe, Verified 04/11/24 09:33) UNKNOWN amoxicillin [AMOXICILLIN] Allergy (Intermediate, Verified 04/11/24 09:33) UNKNOWN, anaphylaxis,rash cetirizine [From ZYRTEC] Allergy (Intermediate, Verified 04/11/24 09:33) SHORTNESS OF BREATH vancomycin [VANCOMYCIN] Allergy (Intermediate, Verified 04/11/24 09:33) RASH, itching animal dander Allergy (Unknown, Verified 04/11/24 09:33) HIVES loratadine [LORATADINE] Allergy (Unknown, Verified 04/11/24 09:33) THROAT SWELLING, hives SEAFOOD Allergy (Severe, Uncoded 04/11/24 09:33) ANAPHYLAXIS GRASS Allergy (Mild, Uncoded 04/11/24 09:33) HIVES penicillin Adverse Reaction (Unknown, Uncoded 04/11/24 09:33) anaphylaxis,rash Medication List - Last Reconciled 04/11/24 by Nicole Baez, [facility]- albuterol sulfate 2.5 mg (3 mL) inhalation Q4-6H PRN albuterol sulfate 90 mcg/actuation (ProAir HFA) 2 puffs inhalation Q4-6H PRN 30 days epinephrine (EpiPen) 0.3 mg (0.3 mL) IM ONCE PRN fluticasone propion-salmeterol 250-50 mcg/dose (Advair Diskus) 1 inh inhalation BID 30 days ibuprofen 800 mg PO Q8H PRN 14 days levalbuterol tartrate 45 mcg/actuation (Xopenex HFA) 2 puffs inhalation Q4-6H PRN 30 days prenat.vits,seymour,utq-ldwk-qirtr 1 tab PO DAILY 90 days Do you need a note to return to daycare/school/sports/work: Yes HPI HPI Comments History of Present Illness Details The patient is a 29-year-old female presenting with abdominal pain and constipation. - Complaints began two weeks ago with ch anges in bowel habits, describing soft and watery stools but feeling unable to empty bowels. When sitting feels pressure and urge to deficate but cannot. Started to vomit yesterday assoc w/ nausea. No blood. - Has used MiraLax with limited relief. - Noted worsening symptoms since last with increased discomfort in the abdomen located more on the right side and a sharp decrease in appetite. - No history of abdominal surgery, use o f GLP-1, chance of preg. LMP 04/01/24. - Denies presence of blood in either sto ol or vomit. - Denies recent weight change but report s significant bloating. - Family history includes severe intesti nal problems on her father's side. - No etoh use. Hx of childhood constipation. Normal urination. Exam Awake alert NAD Scleras nonicteric bilat MMM RRR Abd soft, hypoactive bs x 4, no rebound, rigidity, gaurding or peritoneal signs No CVAT Skin [place] warm dry Discussion Notes I discussed the likely causes of the patient's symptoms and the importance of obtaining a clear diagnosis. I recommended blood work to assess kidney, liver, pancreas function, a blood count, and inflammatory markers. An abdominal x-ray was also recommended for urgent evaluation to rule out any acute findings such as significant constipation or other possible issues. I explained how the x-ray results would dictate further imaging such as a computed tomography (CT) scan. The patient was informed about the immediate access to diagnostic services at our [facility] versus [facility], expediting results and treatment decision-making. I advised the patient on the importance of hydration during this period and assured her of the follow-up process through our patient portal and phone communication. Assessment and Plan 29-year-old female with a family history of intestinal issues presenting with abdominal pain and constipation. The patient's symptomatology suggests severe constipation with associated abdominal discomfort, loss of appetite, and recent vomiting. Differential diagnosis considers underlying gastrointestinal disorders. Diagnostic testing and imaging are warranted to determine the precise etiology and guide treatment. 1. Constipation Continue MiraLax and await further guidance based on x-ray and lab results. The treatment plan may include adjustments to laxatives or dietary changes pending diagnostic outcomes. Agreed on follow-up communication for coordination of plan. 2. Abdominal Pain Recommended an abdominal x-ray and blood tests to identify possible obstructions or causes for abdominal pain. Further imaging may include a CT scan if initial results warrant it. Advised the patient to remain well-hydrated. 3. Vomiting Vomiting is to be monitored. Maintain hydration and avoid trigger foods. Diagnostic tests will further inform treatment decisions. Patient Instructions - Continue taking MiraLax for constipati on relief. - Stay hydrated with adequate fluid inta ke. - Proceed to the [place] location for t he abdominal x-ray and lab work as discussed for quicker results. - Monitor symptoms closely, especially a ny changes in pain, vomiting, or bowel habits. - Follow up on test results through the patient portal or phone call as agreed. At 1650: Patient called with results labs within normal limits KUB does show some very mild constipation and renal stones. The plan will be to have the patient discontinue MiraLax and start Colace 100 mg p.o. b.i.d. hold for loose stools. Check a CT of the abdomen and pelvis without contrast to evaluate the calcifications noted on the KUB. Flomax for 14 days. Follow up by phone once the results are back. Educated to seek emergency medical care if she develops a high fever, inability to void, increasing abdominal pain, intractable vomiting. Consent The patient consented to the proposed diagnostic testing, including blood work and abdominal x-ray, after a thorough discussion of the risks, benefits, and alternatives. Consent was verbally obtained during the visit with steps taken to ensure the patient understood the timely processing of results and subsequent follow-up care. Patient was informed and verbally consented to the use of an ambient scribe for clinic note documentation during this visit. Total time spent caring for the patient today was 40 minutes. This includes time spent before the visit reviewing the chart, time spent during the visit, and time spent after the visit on documentation, reviewing laboratory results, diagnostic imaging, medications, performing a medically necessary evaluation, counseling on diagnoses, care coordination, ordering appropriate tests, ordering appropriate medications, review of tests performed by other providers, reporting test results with the patient, communication with other healthcare pr oviders. [facility] Medical History (Updated 04/11/24 @ 16:43 by NicoleMELBA Yeboah) Asthma Tachycardia Surgical History H/O wisdom tooth extraction Family History (Updated 01/21/23 @ 15:55 by Bonnie Oquendo CMA) Father Stroke Diabetes Hypertension Paternal Grandmother Pacemaker Social History (Updated 01/28/23 @ 15:45 by Claire Fajardo LPN) Housing: Apartment Alcohol intake: never Patient Tobacco Use Status: Never used Tobacco e-Cigarette/Vaping Use: Never Used Current occupational status: employed Cognitive needs: No Hearing needs: No Vision needs: No Physical Exam Vital Signs: Last Vital Signs Temp 96.9 F 04/11/24 09:23 Pulse 59 04/11/24 09:23 Resp 12 04/11/24 09:23 BP 98/68 04/11/24 09:23 Pulse Ox 100 04/11/24 09:23 Oxygen Delivery Method Room Air 04/11/24 09:23 BMI result Body Mass Index 31.0 Results Reviewed Results Reviewed: [facility] [place] [address] XRay Report Signed Patient: Nedra Cardona MR#: [id number] : 1995 Acct:[id number] Age/Sex: 29 / F ADM Date: 04/11/24 Loc: HO.[facility]X Attending Dr: Nicole REILLY Ordering Physician: Nicole Baez Date of Service: 04/11/24 Procedure(s): XR KUB Accession Number(s): [id number] cc: Magnus Hampton MD; Nicole Baez~ EXAMINATION: XR ABDOMEN 1 VIEW (KUB) HISTORY: R10.9 - Unspecified abdominal pain COMPARISON: Comparison is made with the prior examination dated to 317. FINDINGS: Two supine views of the abdomen are submitted. The bowel gas pattern is unremarkable, without evidence of mechanical obstruction. There is a small amount of stool in the descending colon. There is a 6 mm calcification overlying the left renal shadow, consistent with a renal calculus. There are calcifications in the pelvis bilaterally. Exclusion from the urinary tract is not possible on the basis of this examination. There are no abnormal soft tissue masses. The bones are intact. XR/XR KUB IMPRESSION: 1. Small amount of stool in the descending colon. 2. 6 mm left renal calculus. Bilateral pelvic calcifications. Exclusion of the urinary tract is not possible on the basis of this examination. If there is clinical concern for ureteral calculi, unenhanced CT could be performed. Electronically signed by: Delvis Rivera MD 04/11/2024 11:09 AM [facility] Dictated By: Delvis Rivera MD Signed By: <Electronically signed by Delvis Rivera MD in OV> 04/11/24 1109 DD/ 1030 TD/TT: 04/11/24 1030 Community Support Associate: RUN: 04/11/24 1640 PAGE 1 [facility] [address] [place] [phone] Licensed Professional Counselor: Magnus Nobles M.D. Specimen Inquiry Name: Nedra Cardona Age/Sex: 29/F : 1995 Unit#: [id number] Attend Dr: Nicole Baez Re04/11/24 Status: REG REF Location: HO.[facility]GCX Disch: SPEC : [id number] RADHA: 04/11/24-1020 STATUS: COMP REQ : [id number] RECD: 04/11/24-[address]: Nicole Baez COMP: 04/11/24-1410 ENTERED: 04/11/24-[address]: Magnus Hampton MD ORDERED: CMP, Ariana, Lip Test Result Flag Reference Sodium 140 135-145 mmol/L Potassium 4.0 3.3-5.1 mmol/L CL 107 96-108 mmol/L CO2 25 22-29 mmol/L Gap 12 12-20 BUN 13 9-16 mg/dL Creat 0.60 0.5-1.4 mg/dL eGFR > 60 Chronic Kidney Disease: Estimated GFR < 60 mL/min/1.73m2 Severe Kidney Disease: Estimated GFR < 15 mL/min/1.73m2 Glucose, Random 80 60-115 mg/dL CA 9.7 8.4-10.2 mg/dL Total Bili 0.5 0.0-1.0 mg/dL AST (GOT) 20 5-31 U/L ALT (GPT) 15 0-31 U/L Protein, Total 8.3 H 6.5-8.0 g/dL Alb 4.6 3.5-5.0 g/dL Alk Phos 66 39-117 U/L Ariana 30 28-100 U/L Lipase 10 8-78 U/L RUN: 04/11/24 1642 PAGE 1 [facility] [address] [place] [phone] Licensed Professional Counselor: Magnus Nobles M.D. Specimen Inquiry Name: Nedra Cardona Age/Sex: 29/F : 1995 Unit#: [id number] Attend Dr: Nicole Baez Re04/11/24 Status: REG REF [facility] Disch: SPEC : [id number] RADHA: 04/11/24 STATUS: COMP REQ : [id number] RECD: 04/11/24-[address]: [facility]aez [facility] COMP: 04/11/24-1017 ENTERED: 04/11/24-[address]: Magnus Hampton MD ORDERED: WBC ONLY Test Result Flag Reference WBC 10.3 4.8-10.8 X10*3/uL ANC Neut Abs # 6.9 2.0-8.3 x10*3/uL END OF REPORT Assessment & Plan Assessment & Plan (1) Abdominal pain: Code(s): R10.9 - Unspecified abdominal pain Qualifiers: Abdominal location: generalized Qualified Code(s): R10.84 - Generalized abdominal pain (2) Abdominal bloating: Code(s): R14.0 - Abdominal distension (gaseous) (3) Constipation: Code(s): K59.00 - Constipation, unspecified Qualifiers: Constipation type: unspecified constipation type Qualified Code(s): K59.00 - Constipation, unspecified (4) Vomiting: Code(s): R11.10 - Vomiting, unspecified Qualifiers: Nausea presence: with nausea Vomiting type: unspecified Qualified Code(s): R11.2 - Nausea with vomiting, unspecified (5) Renal stones: Code(s): N20.0 - Calculus of kidney Plan . Orders: Orders WBC ONLY Today K59.00 - Constipation, unspecified, R10.9 - Unspecified abdominal pain, R11.10 - Vomiting, unspecified, R14.0 - Abdominal distension (gaseous) XR KUB Today K59.00 - Constipation, unspecified, R10.9 - Unspecified abdominal pain, R11.10 - Vomiting, unspecified, R14.0 - Abdominal distension (gaseous) Comprehensive Met. Panel Today K59.00 - Constipation, unspecified, R10.9 - Unspecified abdominal pain, R11.10 - Vomiting, unspecified, R14.0 - Abdominal distension (gaseous) Erythrocyte Sedimentation Rate Today K59.00 - Constipation, unspecified, R10.9 - Unspecified abdominal pain, R11.10 - Vomiting, unspecified, R14.0 - Abdominal distension (gaseous) Lipase Today K59.00 - Constipation, unspecified, R10.9 - Unspecified abdominal pain, R11.10 - Vomiting, unspecified, R14.0 - Abdominal distension (gaseous) Amylase Today K59.00 - Constipation, unspecified, R10.9 - Unspecified abdominal pain, R11.10 - Vomiting, unspecified, R14.0 - Abdominal distension (gaseous) CT abdomen pelvis wo IV con Today N20.0 - Calculus of kidney, R10.84 - Generalized abdominal pain, R14.0 - Abdominal distension (gaseous) Medications: New docusate sodium (Colace) hold for loose stools 100 mg PO BID 90 caps 0RF tamsulosin (Flomax) 0.4 mg PO BEDTIME 14 caps 0RF Discontinued prenat.vits,seymour,rst-nphn-nctgz Discontinued Reason: Patient Completed Course 1 tab PO DAILY 90 days 90 tabs 6RF Coding Level of Care Code Est Pt Level 5 (72751) Diagnoses Generalized abdominal pain R10.84 Abdominal location: generalized Abdominal bloating R14.0 Constipation, unspecified constipation type K59.00 Constipation type: unspecified constipation type Nausea and vomiting, unspecified vomiting type R11.2 Nausea presence: with nausea Vomiting type: unspecified Renal stones N20.0
[2024-04-11 09:23] VITALS: BP 98/68; PULSE 59; RESP 12; TEMP 36.1; O2SAT 100; BMI 31.0
--- OUTSIDE RECORDS SUMMARY | 2024-04-11 09:53 | XMS_ITS | Clinical Summary ---
[facility] Organization [facility] Address [address] [place] [address] Care Team Providers Care Primary Care Physician Name Role Phone Magnus Hampton MD Primary Care Provider Social History Tobacco Use Types Packs/Day Years Used Date Smoking Tobacco: Never Assessed Comments Unknown Sex and Gender Information Value Date Recorded Sex Assigned at Not on file Legal Sex Female 1:57 PM EST Gender Identity Not on file Sexual Orientation Not on file Obstetrics History Last Filed Vital Signs Vital Sign Reading Time Taken Comments Blood Pressure 130/64 06/03/2023 1:31 PM EDT Pulse 79 06/03/2023 1:31 PM EDT Temperature - - Respiratory Rate - - Oxygen Saturation - - Inhaled Oxygen Concentration - - Weight - - Height - - Body Mass Index - - Plan of Treatment Health Maintenance Due Date Last Done Comments DTaP,Tdap,and Td Vaccines (1 - Tdap) 01/09/2016 Hepatitis B Vaccines (1 of 3 - 19+ 3-dose series) 01/09/2016 Pneumococcal Vaccine: Pediat rics (0 to 5 Years) and At-Risk Patients (6 to 64 Years) (1 of 2 - PCV) 01/09/2016 Cervical Cancer Screening: P ap Smear 2018 Depression Screening 03/22/2023 HIV Screening 03/22/2023 Hepatitis C Screening 03/22/2023 Social Influencers of Health Screening 03/22/2023 COVID-19 Vaccine ( - 2023-2 5 season) 2023 Influenza Vaccine (#1) 2023 HIB Vaccines Aged Out No longer eligi ble based on patient's age to complete this topic HPV Vaccines Aged Out No longer eligi ble based on patient's age to complete this topic Hepatitis A Vaccines Aged Out No long er eligible based on patient's age to complete this topic IPV Vaccines Aged Out No longer eligi ble based on patient's age to complete this topic MMR Vaccines Aged Out No longer eligi ble based on patient's age to complete this topic Meningococcal ACWY Vaccine Aged Out N o longer eligible based on patient's age to complete this topic Meningococcal B Vacine Aged Out No lo nger eligible based on patient's age to complete this topic RSV Immunization Patients Un roman 20 months Aged Out No longer eligible b ased on patient's age to complete this topic Varicella Vaccines Aged Out No longer eligible based on patient's age to complete this topic Care Teams Primary Care Physician Relationship Specialty Start Date End Date Magnus Hampton MD [address] [place] [address] Dr Salud MA PCP - General 03/16/22
== END 2024-04-11 09:47 | disposition home or self-care (01) ==
PROVIDERS: PCP Family Medicine; Visit Provider Nurse Practitioner Family
DX: R10.84 Generalized abdominal pain (principal); R14.0 Abdominal distension (gaseous); K59.00 Constipation, unspecified; R11.2 Nausea with vomiting, unspecified; N20.0 Calculus of kidney

== ENCOUNTER 2024-04-11 09:15 | Outpatient (REF) | payer OTHER, SELFPAY ==
--- NOTE | ~2024-04-11 | XR_ITS ---
EXAMINATION: XR ABDOMEN 1 VIEW (KUB) HISTORY: R10.9 - Unspecified abdominal pain COMPARISON: Comparison is made with the prior examination dated to 317. FINDINGS: Two supine views of the abdomen are submitted. The bowel gas pattern is unremarkable, without evidence of mechanical obstruction. There is a small amount of stool in the descending colon. There is a 6 mm calcification overlying the left renal shadow, consistent with a renal calculus. There are calcifications in the pelvis bilaterally. Exclusion from the urinary tract is not possible on the basis of this examination. There are no abnormal soft tissue masses. The bones are intact. XR/XR KUB IMPRESSION: 1. Small amount of stool in the descending colon. 2. 6 mm left renal calculus. Bilateral pelvic calcifications. Exclusion of the urinary tract is not possible on the basis of this examination. If there is clinical concern for ureteral calculi, unenhanced CT could be performed. Electronically signed by: Delvis Rivera MD 04/11/2024 11:09 AM DEJAH
--- OUTSIDE RECORDS SUMMARY | 2024-04-11 11:31 | XMS_ITS | Clinical Summary ---
Author Organization [facility] ity Address [address] [place] [address] Care Team Providers Care Accreditation Specialist Name Role Phone Magnus Hampton MD Primary [...] age to complete this topic Care Teams Accreditation Specialist Relationship Specialty Start Date End Date Magnus Hampton MD [address] [place] [address] Dr Salud MA PCP - General 03/16/22
[2024-04-11 13:58] LABS: Neutrophils Absolute Auto 6.9 x10*3/uL (2.0-8.3); White Blood Count 10.3 X10*3/uL (4.8-10.8)
[2024-04-11 14:10] LABS: Alanine Aminotransferase 15 U/L (0-31); Albumin Level 4.6 g/dL (3.5-5.0); Alkaline Phosphatase 66 U/L (39-117); Amylase 30 U/L (28-100); Anion Gap 12 (12-20); Aspartate Amino Transferase 20 U/L (5-31); Bilirubin Total 0.5 mg/dL (0.0-1.0); Blood Urea Nitrogen 13 mg/dL (9-16); Calcium 9.7 mg/dL (8.4-10.2); Carbon Dioxide 25 mmol/L (22-29); Chloride 107 mmol/L (96-108); Estimated Glomerular Filt Rate > 60; Glucose Random 80 mg/dL (60-115); Lipase 10 U/L (8-78); Sodium 140 mmol/L (135-145); Total Protein 8.3 g/dL (6.5-8.0)
[2024-04-11 14:38] LABS: Erythrocyte Sedimentation Rate 7 MM/HR (0-20)
== END 2024-04-11 09:16 | disposition home or self-care (01) ==
LOC: HO.HMGCX 09:15
PROVIDERS: PCP Family Medicine; Visit Provider Nurse Practitioner Family
DX: R14.0 Abdominal distension (gaseous) (principal); R10.9 Unspecified abdominal pain; K59.00 Constipation, unspecified; R11.10 Vomiting, unspecified; R10.84 Generalized abdominal pain; R11.2 Nausea with vomiting, unspecified; R11.0 Nausea; N20.0 Calculus of kidney
CPT/HCPCS: 36415; 74018; 80053; 82150; 83690; 85048; 85652; 99212

== ENCOUNTER → 2024-04-11 10:24 | Outpatient (BNV) | payer OTHER, SELFPAY | PROVIDERS: PCP Family Medicine; Visit Provider Radiology Diagnostic Radiology | DX: N20.0 Calculus of kidney (principal); K56.41 Fecal impaction | CPT/HCPCS: 74018 ==

== ENCOUNTER 2024-05-30 17:09 | Emergency (ER) | payer OTHER, SELFPAY ==
--- NOTE | ~2024-05-30 | XR_ITS ---
CLINICAL HISTORY: open fx Three views left ankle. Findings: There is an oblique mildly displaced fracture of the distal fibula. There is a small fracture of the posterior malleolus. There is asymmetry of the ankle mortise with tilting of the talus. Impression: Distal fibular and posterior malleolar fractures with disruption of the ankle mortise. This document has been electronically signed by: Horacio Ambriz MD on 05/30/2024 18:28:58
--- NOTE | ~2024-05-30 | XR_ITS ---
CLINICAL HISTORY: post reduction splinting Two views left ankle. Comparison same day. Findings: There is a fracture of the distal fibula. Previously identified posterior malleolar fracture not well seen on the current exam. Tibiotalar alignment is mildly improved. A splint is in place. Impression: Mildly improved tibiotalar alignment. This document has been electronically signed by: Horacio Ambriz MD on 05/30/2024 18:53:11
[2024-05-30 17:16] VITALS: BP 138/90; PULSE 111; O2SAT 99
[2024-05-30 17:20] VITALS: BP 124/69; PULSE 95; RESP 16; O2SAT 100; BMI 30.7
--- NOTE | 2024-05-30 17:29 | ED_ITS ---
HPI - General Adult General Chief complaint: Extremity Injury, Lower Stated complaint: L ankle fracture/deformity Time Seen by Provider: 05/30/24 17:29 Source: patient, EMS and other (patient's friend) Mode of arrival: EMS Limitations: no limitations History of Present Illness ED Provider: Raya Tatum PA-C HPI narrative: Patient is a 29 year old assigned female at with a history of kidney stones and asthma presenting to the emergency department today with left ankle pain. Patient states that she was trying to teach her kids what to do during a pickle in baseball / softball when she tripped on a base and twisted her left ankle. Patient denies any head strike, loss of consciousness, numbness, tingling, dizziness, lightheadedness, abdominal pain, nausea, vomiting, fever, chills, blurry vision, double vision, loss of vision, chest pain, difficulty breathing, shortness of breath, back pain, night sweats, pain with urination, increased urinary frequency, increased urinary urgency, blood in her urine or stool, syncope or a near syncopal episode, bowel incontinence, bladder incontinence, or any other complaints at this time. Location: left and lower extremity Relieving factors: immobilization Exacerbating factors: movement Associated symptoms: denies other symptoms Treatments prior to arrival: none Related Data Previous Rx's ?Medication ?Instructions ?Recorded ibuprofen 800 mg tablet 800 mg PO Q8H PRN pain 14 days #42 07/19/21 tabs albuterol sulfate 2.5 mg/3 mL 2.5 mg (3 mL) inhalation Q4-6H PRN 12/21/22 (0.083 %) solution for nebulization shortness of breath or wheezing #90 mL albuterol sulfate 90 mcg/actuation 2 puff inhalation Q4-6H PRN 01/21/23 aerosol inhaler (ProAir HFA) shortness of breath or wheezing 30 days #8.5 grams fluticasone 250 mcg-salmeterol 50 1 inh inhalation BID 30 days #60 ea 01/21/23 mcg/dose blistr powdr for inhalation (Advair Diskus) epinephrine 0.3 mg/0.3 mL 0.3 mg (0.3 mL) IM ONCE PRN 01/28/23 injection, auto-injector (EpiPen) anaphylaxis #2 ea levalbuterol tartrate 45 2 puff inhalation Q4-6H PRN 04/11/23 mcg/actuation aerosol inhaler shortness of breath 30 days #15 (Xopenex HFA) grams docusate sodium 100 mg capsule 100 mg PO BID #90 caps 04/11/24 (Colace) tamsulosin 0.4 mg capsule (Flomax) 0.4 mg PO BEDTIME #14 caps 04/11/24 Allergies Allergy/AdvReac Type Severity Reaction Status Date / Time omalizumab [From XOLAIR] Allergy Severe HIVES AND Verified 05/30/24 17:23 THROAT CLOSING Penicillins [PENICILLINS] Allergy Severe UNKNOWN Verified 05/30/24 17:23 amoxicillin [AMOXICILLIN] Allergy Intermediate UNKNOWN, Verified 05/30/24 17:23 anaphylaxis,rash cetirizine [From ZYRTEC] Allergy Intermediate SHORTNESS Verified 05/30/24 17:23 OF BREATH vancomycin [VANCOMYCIN] Allergy Intermediate RASH, Verified 05/30/24 17:23 itching animal dander Allergy Unknown HIVES Verified 05/30/24 17:23 loratadine [LORATADINE] Allergy Unknown THROAT Verified 05/30/24 17:23 SWELLING, hives SEAFOOD Allergy Severe ANAPHYLAXIS Uncoded 04/11/24 09:33 GRASS Allergy Mild HIVES Uncoded 04/11/24 09:33 penicillin AdvReac Unknown anaphylaxis Uncoded 04/11/24 09:33 ,rash Review of Systems Constitutional: Constitutional: Reports no additional constitutional complaints, Denies chills, Denies fever(s) and Denies night sweats Eyes: Eyes: Reports no additional eye complaints, Denies blurry vision, Denies change in vision, Denies diplopia, Denies eye discharge, Denies loss of vision and Denies eye pain ENT: Denies dizziness Cardiovascular: Cardiovascular: Reports no additional cardiovascular complaints, Denies chest pain, Denies lightheadedness, Denies Loss of Consciousness and Denies dyspnea Respiratory: Respiratory: Reports no additional respiratory complaints and Denies dyspnea Gastrointestinal: Gastrointestinal: Reports no additional gastrointestinal complaints, Denies abdominal pain, Denies melena, Denies hematochezia, Denies change in bowel habits and Denies change in stool character Genitourinary: Genitourinary: Denies hematuria, Denies urinary frequency, Denies dysuria, Denies urinary incontinence, Denies urinary hesitancy and Denies urinary urgency Musculoskeletal: Musculoskeletal: Reports no additional musculoskeletal complaints, Denies numbness and Denies tingling Comments: left ankle pain Neurologic: Denies dizziness, Denies loss of vision, Denies numbness and Denies tingling Psychiatric: Psychiatric: Reports no additional psychiatric complaints Endocrine: Endocrine: Reports no additional endocrine complaints Hematologic/Lymphatic: Hematologic/Lymphatic: Reports no additional hematologic/lymphatic complaints Allergic/Immunologic: Allergic/Immunologic: Reports no additional allergic/immunologic complaints PMFSH Past Medical History Attestation statement: The following information was validated with the patient. Source: old records reviewed and nursing notes reviewed Medical History Tachycardia Asthma Surgical History H/O wisdom tooth extraction Family History Family History Father Stroke Diabetes Hypertension Paternal Grandmother Pacemaker Social History Social History Housing: Apartment Alcohol intake: never Patient Tobacco Use Status: Never used Tobacco e-Cigarette/Vaping Use: Never Used Advance Directives: No Advance Directives Information Provided: No Do you have a plan to hurt others: No Plan Current occupational status: employed Cognitive needs: No Hearing needs: No Vision needs: No Physical Exam ED Vital Signs: Vital Signs - 24 hr 05/30/24 17:20 05/30/24 19:34 Temperature 98.4 F Pulse Rate 95 95 Respiratory Rate 16 16 Blood Pressure 124/69 124/69 Pulse Oximetry 100 100 Oxygen Delivery Method Room Air Room Air BMI result Body Mass Index 30.7 Const General: cooperative, no acute distress, alert and awake Nutritional Appearance: well nourished Orientation/consciousness: patient oriented x3 Limitations: no limitations HENCT Head: Yes normal to inspection and Yes atraumatic Ears: hearing grossly normal bilaterally and external ears normal General nose exam: Normal external nose present, no nasal discharge noted and no epistaxis Face and sinus: Yes normal facial exam, No abrasion and No laceration Mouth: Normal oral and palatal mucosa present, no drooling and no muffled voice Eyes General: appearance normal, both eyes and all related structures Periorbital: periorbital findings normal Eyelids: Yes eyelids normal Conjunctivae: conjunctivae normal Pupils: Equal, round and reactive pupils present EOM: EOMs intact bilaterally Neck Neck: Yes normal visual inspection, Yes full ROM and Yes no lymphadenopathy Chest Chest palpation & inspection: normal inspection of the chest Resp Effort & Inspection: normal respiratory effort and able to speak in complete sentences GI Inspection: Yes normal to inspection Neuro General: patient oriented x3, moves all extremities and CN's II-XI intact bilaterally Cranial nerves: Yes Equal, round and reactive pupils present Cognition (Neuro): normal cognition Extrem Other: left ankle swelling pain with left ankle ROM General: Yes capillary refill normal Psych Appearance: grossly normal Mental Status: mental status grossly normal Affect: normal affect Attitude: cooperative Thought process: Normal thought process present Thought content: Normal thought content present Insight: Good insight present (Psych) Procedures Orthopedic Fracture Reduction Fracture #1: Time Out Performed: Yes Side: left Fracture Reduction Location: fibula Analgesia: none Technique: direct manipulation Post Reduction X-rays Demonstrate: anatomical reduction Post-reduction neuro exam: intact Post-reduction vascular exam: intact Splint Applied: Yes Patient Tolerated Procedure: well Orthopedic Splinting/Casting Injury #1: Side: left Lower Extremity Injury Location: ankle Lower Extremity Immobilizer: posterior splint and stirrup splint Other Orthopedic Equipment: crutches Medical Decision Making Medical Decision Making MDM Narrative: Patient is a 29 year old assigned female at with a history of kidney stones and asthma presenting to the emergency department today with left ankle pain. Patient's physical exam was unremarkable. Patient's left ankle x-ray showed distal fibular and posterior malleolar fractures with disruption of the ankle mortise. I spoke with the orthopedic team who recommended reduction as best as possible, posterior short leg with stirrup splint, and keeping the patient non weight bearing with crutches and outpatient follow up. I explained my physical exam findings as well as all test results to the patient and the patient's friend. I answered all questions asked by the patient and the patient's friend. I manually reduced the left ankle while applying a posterior short leg with stirrup splint. Patient's reduction and splinting went well. Patient's PMS was intact prior to and after reduction and splinting. Patient's post reduction film confirmed appropriate reduction. Patient was given crutches with crutch instructions and confirmed ability to use them while in the department. I stressed the importance of the patient taking her medication as directed (either prescribed or as the over the counter packaging recommends). I stressed the importance of the patient following up with her primary care provider and an orthopedic provider. I stressed the importance of the patient returning to the emergency department immediately if her symptoms were to worsen or if she were to develop any dizziness, shortness of breath, difficulty breathing, chest pain, blurry vision, loss of vision, nausea, vomiting, abdominal pain, fever, chills, back pain, or any other complaints. Patient and the patient's friend verbalized agreement and understanding with this treatment plan and discharge. Differential Diagnosis Differential Diagnoses: The differential diagnosis associated with the presentation includes Left ankle fracture Fibular fracture Admission/Observation Consideration of admission/observation: Escalation of care including admission/observation considered Patient would have been admitted to the hospital had her work up had any findings where hospital admission was appropriate and her clinical presentation warranted hospital admission. Consult Healthcare Provider Management of the patient was discussed with: Note Taker (spoke with the orthopedic team as noted in the MDM Rationale portion of this note. ) Independent Interpretation I performed an independent interpretation of an: Plain X-Ray Interpretation: My interpretation is in agreement with the radiologist's impression of these imaging studies. CLINICAL HISTORY: open fx Three views left ankle. Findings: There is an oblique mildly displaced fracture of the distal fibula. There is a small fracture of the posterior malleolus. There is asymmetry of the ankle mortise with tilting of the talus. Impression: Distal fibular and posterior malleolar fractures with disruption of the ankle mortise. This document has been electronically signed by: Horacio Ambriz MD on 05/30/2024 18:28:58 Dictated By: Anderson Bejarano MD Signed By: Electronically signed by Anderson Bejarano MD 05/30/24 1829 CLINICAL HISTORY: post reduction splinting Two views left ankle. Comparison same day. Findings: There is a fracture of the distal fibula. Previously identified posterior malleolar fracture not well seen on the current exam. Tibiotalar alignment is mildly improved. A splint is in place. Impression: Mildly improved tibiotalar alignment. This document has been electronically signed by: Horacio Ambriz MD on 05/30/2024 18:53:11 Dictated By: Anderson Bejarano MD Signed By: Electronically signed by Anderson Bejarano MD 05/30/24 0204 Radiology Impression Discussion of test interpretation with radiology: I have reviewed the radiologist's reading. Independent Historian Clinical information obtained from an independent historian. History obtained from or confirmed by: Friend (Patient's friend provided additional history and c onfirmed the history provided by the patient. ) and EMS (EMS provided additional history and confirmed the history provided by the patient. ) Critical Care Time Critical Care Time Critical Care Time: Yes Total Critical Care Time: 32 Attestation: I spent 32 minutes of Critical Care Time with this patient. This does not include time spent on separately reported billable procedures. Discharge Plan Discharge Clinical Impression: Closed fibular fracture Patient Disposition: Home, Self-Care Instructions: Ankle Fracture (DC), Crutch Instructions (ED) Additional Instructions: Every time you are non-ambulatory, ELEVATE your left lower extremity. Do NOT bear any weight on the left lower extremity. Do NOT get your splint wet. Do NOT remove your splint. If you have any change in sensation, movement, or color of your left toes - you may loosen the outer FILIPE wraps. If you find yourself loosening the FILIPE wraps to the point of seeing the white splint material underneath - STOP and proceed to your closest Emergency Department, immediately. Follow up with your primary care provider and the orthopedic team. Return to the emergency department immediately if your symptoms worsen or if you develop any numbness, tingling, dizziness, shortness of breath, difficulty breathing, chest pain, blurry vision, loss of vision, nausea, vomiting, abdominal pain, fever, chills, back pain, or any other complaints. Please see the information below about our Patient Portal. If you are not yet enrolled in the [facility] Patient Portal, you will receive an enrollment email invitation following your visit to any [facility] setting. You may also self-enroll in the Patient Portal by visiting our website: [email or web address] The following information is required to access the Patient Portal: - Your [facility] Medical Record Number - Your personal home email address (must match what is in your electronic medical record, Registration staff can assist with this) - Name - Date of Capabilities of the Patient Portal: - Message some providers - View upcoming appointments - Access your health summary, medical history, and visit history - View current conditions and allergies - View procedure and lab results - View your medications, including guidelines, side effects, and precautions - Complete pre-appointment questionnaires requested by your provider - Ready summary reports of your office visits and procedures To access the Patient Portal Mobile David, follow these directions: - Search Solairedirect in the David Store or Zappli Store - Download the David - Search for [facility] - Enter your login/password Prescriptions: No Action levalbuterol tartrate [Xopenex HFA] 45 mcg/actuation HFA aerosol inhaler 2 puff inhalation Q4-6H PRN (Reason: shortness of breath) 30 Days Qty: 15 0RF albuterol sulfate 2.5 mg /3 mL (0.083 %) solution for nebulization 2.5 mg inhalation Q4-6H PRN (Reason: shortness of breath or wheezing) Qty: 90 0RF fluticasone propion-salmeterol [Advair Diskus] 250-50 mcg/dose blister with device 1 inh inhalation BID 30 Days Qty: 60 2RF albuterol sulfate [ProAir HFA] 90 mcg/actuation HFA aerosol inhaler 2 puff inhalation Q4-6H PRN (Reason: shortness of breath or wheezing) 30 Days Qty: 8.5 2RF ibuprofen 800 mg tablet 800 mg PO Q8H PRN (Reason: pain) 14 Days Qty: 42 0RF epinephrine [EpiPen] 0.3 mg/0.3 mL auto-injector 0.3 mg IM ONCE PRN (Reason: anaphylaxis) Qty: 2 0RF Rx Instructions: for 2 doses docusate sodium [Colace] 100 mg capsule 100 mg PO BID Qty: 90 0RF Rx Instructions: hold for loose stools tamsulosin [Flomax] 0.4 mg capsule 0.4 mg PO BEDTIME Qty: 14 0RF Referrals: [facility] Orthopedic Surgeons [Provider Group] (Call to establish and follow up with an orthopedic provider. ) Magnus Hampton MD [Primary Care Provider] - Stand Alone Forms: Work/School Release Interventions: ED Discharge Assessment Last Done: 05/30/24 19:34 Discharge Date/Time: 05/30/24 19:36 Print Language: East Timorese
--- OUTSIDE RECORDS SUMMARY | 2024-05-30 18:38 | XMS_ITS | Clinical Summary ---
Author Organization [facility] ity Address [address] [place] [address] Care Team Providers Care Supervisor Drawing Name Role Phone Magnus Hampton MD Primary [...] - 2023-2 5 season) 2023 Influenza Vaccine (Season Ended) 2024 HIB Vaccines Aged Out No longer eligi [...] age to complete this topic Meningococcal B Vaccine Aged Out No l onger eligible based on patient's age to complete this topic RSV Immunization Patients Un roman 20 months Aged Out No longer eligible b ased on patient's age to complete this topic Varicella Vaccines Aged Out No longer eligible based on patient's age to complete this topic Care Teams Supervisor Drawing Relationship Specialty Start Date End Date Magnus Hampton MD [address] [place] [address] Dr Kumar [facility] SAAD Maguire PCP - General 03/16/22
[2024-05-30 19:34] VITALS: BP 124/69; PULSE 95; RESP 16; TEMP 36.9; O2SAT 100
== END 2024-05-30 19:36 | disposition home or self-care (01) ==
PROVIDERS: Emergency Provider Emergency Medicine Emergency Medical Services; PCP Family Medicine
DX: S82.892A Other fracture of left lower leg, initial encounter for closed fracture (principal); M25.572 Pain in left ankle and joints of left foot; X50.1XXA Overexertion from prolonged static or awkward postures, initial encounter; Y93.64 Activity, baseball; Y92.320 Baseball field as the place of occurrence of the external cause; Y99.0 Civilian activity done for income or pay
CPT/HCPCS: 27788; 29515; 73600; 73610; 99282; 99284

== ENCOUNTER → 2024-05-30 17:25 | Outpatient (BNV) | payer OTHER, SELFPAY | PROVIDERS: Emergency Provider Emergency Medicine Emergency Medical Services; PCP Family Medicine; Visit Provider Radiology Diagnostic Radiology | DX: S82.892A Other fracture of left lower leg, initial encounter for closed fracture (principal) | CPT/HCPCS: 73600; 73610 ==

== ENCOUNTER → 2024-05-31 09:08 | Outpatient (BNVA) | payer OTHER, SELFPAY | PROVIDERS: PCP Family Medicine; Visit Provider Registered Nurse | DX: S82.832A Other fracture of upper and lower end of left fibula, initial encounter for closed fracture (principal); X50.1XXA Overexertion from prolonged static or awkward postures, initial encounter | CPT/HCPCS: 99202 ==

== ENCOUNTER 2024-06-02 08:11 | Emergency (ER) | payer OTHER, SELFPAY ==
--- NOTE | ~2024-06-02 | US_ITS ---
EXAMINATION: US TRIPLEX LOWER EXTREMITY, LEFT CLINICAL INFORMATION: Edema and pain, left lower extremity. COMPARISON: None available. TECHNIQUE: Color-flow triplex imaging with spectral analysis and compression Doppler were performed on the left lower extremity. FINDINGS: Respiratory variation, normal compression and augmented flow are noted throughout the interrogated common femoral vein, superficial femoral vein, profunda femoral vein, popliteal vein and midcalf peroneal and posterior tibial venous segments.. There is no Cueva's cyst. US/US venous duplex LE LT IMPRESSION: No acute deep venous thrombosis involving the left lower extremity. Negative for DVT. Electronically signed by: Gera Horn MD 06/02/2024 10:27 AM EDT
--- NOTE | ~2024-06-02 | XR_ITS ---
EXAMINATION: XR ANKLE, LEFT CLINICAL INFORMATION: recent fx, increased pain COMPARISON: 05/30/2024. TECHNIQUE: AP, lateral, and mortise views of the left ankle. FINDINGS: Oblique fracture of the distal fibular metadiaphysis extending to the level of the syndesmosis. Minimal displacement. No additional fracture detected. Widening of the medial ankle mortise. Talar dome intact. Subtalar joints and calcaneus intact. There is diffuse soft tissue swelling. XR/XR ankle LT min 3V IMPRESSION: Redemonstration of mildly displaced spiral fracture lateral malleolus. No obvious healing identified. Mildly widened medial mortise. Soft tissue swelling. Electronically signed by: Prosper Fajardo MD 06/02/2024 11:23 AM EDT
[2024-06-02 08:14] VITALS: BP 125/46; PULSE 104; RESP 16; TEMP 36.9; O2SAT 98; BMI 30.2
[2024-06-02] MEDS: Acetaminophen 325 MG TABLET 975 MG PO (08:42)
[2024-06-02] MEDS: Ibuprofen 600 MG TABLET PO (08:42)
--- NOTE | 2024-06-02 08:56 | ED.EXTPRO ---
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 She reports the pain is worse when the ankle is elevated and it feels like pressure and tightness. She denies SOB or chest pain. She reports history of DVT/PE in the past x2 and is supposed to be on aspirin which she doesn't take. 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 MD Complaint: extremity pain and extremity swelling Onset (ago): hour(s) Pain Consistency: constant Location: left and lower extremity Severity scale (1-10): 8 Quality: aching and sharp Radiation: proximal Relieving factors: nothing Exacerbating factors: other (elevation) Associated symptoms: denies other symptoms Context: history of DVT Related Data Previous Rx's ?Medication ?Instructions ?Recorded ibuprofen 800 mg tablet 800 mg PO Q8H PRN pain 14 days #42 07/19/21 tabs albuterol sulfate 2.5 mg/3 mL 2.5 mg (3 mL) inhalation Q4-6H PRN 12/21/22 (0.083 %) solution for nebulization shortness of breath or wheezing #90 mL albuterol sulfate 90 mcg/actuation 2 puff inhalation Q4-6H PRN 01/21/23 aerosol inhaler (ProAir HFA) shortness of breath or wheezing 30 days #8.5 grams fluticasone 250 mcg-salmeterol 50 1 inh inhalation BID 30 days #60 ea 01/21/23 mcg/dose blistr powdr for inhalation (Advair Diskus) epinephrine 0.3 mg/0.3 mL 0.3 mg (0.3 mL) IM ONCE PRN 01/28/23 injection, auto-injector (EpiPen) anaphylaxis #2 ea levalbuterol tartrate 45 2 puff inhalation Q4-6H PRN 04/11/23 mcg/actuation aerosol inhaler shortness of breath 30 days #15 (Xopenex HFA) grams docusate sodium 100 mg capsule 100 mg PO BID #90 caps 04/11/24 (Colace) tamsulosin 0.4 mg capsule (Flomax) 0.4 mg PO BEDTIME #14 caps 04/11/24 Allergies Allergy/AdvReac Type Severity Reaction Status Date / Time omalizumab [From XOLAIR] Allergy Severe HIVES AND Verified 06/02/24 08:15 THROAT CLOSING Penicillins [PENICILLINS] Allergy Severe UNKNOWN Verified 06/02/24 08:15 amoxicillin [AMOXICILLIN] Allergy Intermediate UNKNOWN, Verified 06/02/24 08:15 anaphylaxis,rash cetirizine [From ZYRTEC] Allergy Intermediate SHORTNESS Verified 06/02/24 08:15 OF BREATH vancomycin [VANCOMYCIN] Allergy Intermediate RASH, Verified 06/02/24 08:15 itching animal dander Allergy Unknown HIVES Verified 06/02/24 08:15 loratadine [LORATADINE] Allergy Unknown THROAT Verified 06/02/24 08:15 SWELLING, hives SEAFOOD Allergy Severe ANAPHYLAXIS Uncoded 06/02/24 08:15 GRASS Allergy Mild HIVES Uncoded 06/02/24 08:15 penicillin AdvReac Unknown anaphylaxis Uncoded 06/02/24 08:15 ,rash Review of Systems Review of Systems: Yes all other systems are reviewed and are negative [facility] Past Medical History Medical History Tachycardia Asthma Surgical History H/O wisdom tooth extraction Family History Family History Father Stroke Diabetes Hypertension Paternal Grandmother Pacemaker Social History Social History Housing: Apartment Alcohol intake: never Patient Tobacco Use Status: Never used Tobacco e-Cigarette/Vaping Use: Never Used Advance Directives: No Advance Directives Information Provided: No Do you have a plan to hurt others: No Plan Current occupational status: employed Cognitive needs: No Hearing needs: No Vision needs: No Physical Exam Vital Signs: Vital Signs: Last Vital Signs Temp 97.8 F 06/02/24 10:33 Pulse 73 06/02/24 10:33 Resp 20 06/02/24 10:33 BP 105/58 L 06/02/24 10:33 Pulse Ox 99 06/02/24 10:33 O2 Del Method Room Air 06/02/24 10:33 BMI result Body Mass Index 30.2 Appearance: Alert. Oriented X3. No acute distress. HEENT: normal inspection CVS: Normal heart rate and rhythm. Pulses normal. Respiratory: No respiratory distress. Lungs CTAB Skin: Skin warm and dry. Normal skin color. Normal skin turgor. No rashes. Extremities: left lower leg splint removed. there is moderate generalized swelling of the entire left ankle with associated ecchymosis medially. foot is warm and well perfused with 2+ DP/PT pulses. tender throughout Neuro: Oriented X 3. No motor deficit. No sensory deficit. Medications Administered Discontinued Medications Generic Name Dose Route Start Last Admin Trade Name Freq PRN Reason Stop Dose Admin Acetaminophen 975 mg 06/02/24 08:34 06/02/24 08:42 Acetaminophen 325 Mg Tablet PO 06/02/24 08:35 975 mg ONCE ONE Administration Ibuprofen 600 mg 06/02/24 08:34 06/02/24 08:42 Ibuprofen 600 Mg Tablet PO 06/02/24 08:35 600 mg ONCE ONE Administration Medical Decision Making Medical Decision Making MDM Narrative: 29 yo female who was seen in the ER 05/30 after a fall while playing softball resulting in a distal fibular fx and posterior malleolar fx s/p splinting who presents to the ER for evaluation of acute onset of worsening ankle pain that started at 330 am today given her history DVT was considered. splint removed - moderate generalized swelling of the ankle w/ ecchymosis. US ordered and shows no DVT splint was replaced, both posterior short and stirrup splint. her pain is improved. her pain worsening was most likely due to interim increased swelling in the ankle and pain w/ the splint she feels better she is stable for d/c home with ongoing elevation, ortho follow up tomorrow Differential Diagnosis Differential Diagnoses: The differential diagnosis associated with the presentation includes DVT, ankle fracture w/ disruption of ankle mortise, worsening displacement, worsening swelling w/ splint restriction Independent Interpretation I performed an independent interpretation of an: Plain X-Ray Interpretation: lateral mallelous fx, ligamentous laxity with soft tissue swelling Radiology Impression Discussion of test interpretation with radiology: I have reviewed the radiologist's reading. Radiologist Impression: XR/XR ankle LT min 3V IMPRESSION: Redemonstration of mildly displaced spiral fracture lateral malleolus. No obvious healing identified. Mildly widened medial mortise. Soft tissue swelling. External Record Review External record reviewed: Outpatient record and Prior outpatient radiology Prescription Management I considered prescription management with: Pain Medication Chronic Conditions Patient?s care impacted by: Other (hx DVT/PE) Procedures Orthopedic Splinting/Casting Injury #1: Side: left Lower Extremity Injury Location: ankle Lower Extremity Immobilizer: posterior splint, stirrup splint and Zaid wrap Critical Care Time Critical Care Time Critical Care Time: No Discharge Plan Discharge Clinical Impression: Ankle fracture, left Qualifiers: Encounter type: subsequent encounter Fracture type: closed Fracture healing: with routine healing Qualified Code(s): S82.892D - Other fracture of left lower leg, subsequent encounter for closed fracture with routine healing Patient Disposition: Home, Self-Care Instructions: Ankle Fracture (DC) Additional Instructions: your ultrasound today did not show any blood clot your fracture was resplinted follow up with orthopedics as scheduled tomorrow elevate your leg whenever possible, above the level of your heart If you develop new or worsening symptoms call 911 or come back to the ER for further evaluation. Prescriptions: No Action levalbuterol tartrate [Xopenex HFA] 45 mcg/actuation HFA aerosol inhaler 2 puff inhalation Q4-6H PRN (Reason: shortness of breath) 30 Days Qty: 15 0RF albuterol sulfate 2.5 mg /3 mL (0.083 %) solution for nebulization 2.5 mg inhalation Q4-6H PRN (Reason: shortness of breath or wheezing) Qty: 90 0RF fluticasone propion-salmeterol [Advair Diskus] 250-50 mcg/dose blister with device 1 inh inhalation BID 30 Days Qty: 60 2RF albuterol sulfate [ProAir HFA] 90 mcg/actuation HFA aerosol inhaler 2 puff inhalation Q4-6H PRN (Reason: shortness of breath or wheezing) 30 Days Qty: 8.5 2RF ibuprofen 800 mg tablet 800 mg PO Q8H PRN (Reason: pain) 14 Days Qty: 42 0RF epinephrine [EpiPen] 0.3 mg/0.3 mL auto-injector 0.3 mg IM ONCE PRN (Reason: anaphylaxis) Qty: 2 0RF Rx Instructions: for 2 doses docusate sodium [Colace] 100 mg capsule 100 mg PO BID Qty: 90 0RF Rx Instructions: hold for loose stools tamsulosin [Flomax] 0.4 mg capsule 0.4 mg PO BEDTIME Qty: 14 0RF Referrals: [facility] Orthopedic Surgeons [Provider Group] - 06/03/24 Print Language: [place]
--- NOTE | 2024-06-02 08:56 | PC.NURSE ---
patient presented to ED after being woken uo at 0330 with pain and swelling to left leg, patient seen 05/30 for open fracture, splinted in ED. patient states she has not had any pain. patient states her toes with dark colored this morning, swollen and were unable to move. Splint removed by this RN and ED provider, patient CEMETERY WARDEN intact, +pedal pulses bilat. patient has hx of blood clots with x2, non compliant with baby aspirin. patient states her pain is more pressure 7/10
[2024-06-02 10:33] VITALS: BP 105/58; PULSE 73; RESP 20; TEMP 36.6; O2SAT 99
[2024-06-02 12:35] VITALS: BP 119/69; PULSE 75; RESP 12; TEMP 36.8; O2SAT 98
[2024-06-02 12:49] VITALS: BP 119/69; PULSE 75; RESP 12; TEMP 36.8; O2SAT 98
== END 2024-06-02 12:35 | disposition home or self-care (01) ==
PROVIDERS: Emergency Provider Emergency Medicine; PCP Family Medicine
DX: S82.62XA Displaced fracture of lateral malleolus of left fibula, initial encounter for closed fracture (principal); W18.39XA Other fall on same level, initial encounter; M25.572 Pain in left ankle and joints of left foot; Z86.718 Personal history of other venous thrombosis and embolism; Y93.64 Activity, baseball; Y92.320 Baseball field as the place of occurrence of the external cause; Y99.9 Unspecified external cause status
CPT/HCPCS: 29515; 73610; 93971; 99284

== ENCOUNTER → 2024-06-02 08:22 | Outpatient (BNV) | payer OTHER, SELFPAY | PROVIDERS: Emergency Provider Emergency Medicine; PCP Family Medicine; Visit Provider Radiology Diagnostic Radiology | DX: R60.0 Localized edema (principal); M79.605 Pain in left leg; M25.572 Pain in left ankle and joints of left foot | CPT/HCPCS: 73610; 93971 ==

== ENCOUNTER 2024-06-03 09:21 | Outpatient (AMB) | payer OTHER, SELFPAY ==
--- NOTE | 2024-06-03 09:34 | A.OFFVIS_ITS ---
Vital Signs 06/03/24 09:40 Height 5 ft 4 in Weight 178 lb BMI 30.6 Intake Visit Reasons: FC- L ankle fibular fracture WC DOI 05/30/24 Intake Note: Nedra is a 29 year old female who presents today for an ER follow up of a workers comp injury to her left ankle, DOI 05/30/24. 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 She presented to [facility] ER where x-rays were taken and placed in a splint. She returned yesterday due to wakin up with sharp shooting pain, her toes were swollen and discolored. She has a history of DVT, an US was done and negative for DVT. A new splint was placed. Currently she has no pain only discomfort with elevation, stating her toes become discolored. Allergies omalizumab [From XOLAIR] Allergy (Severe, Verified 06/03/24 10:08) HIVES AND THROAT CLOSING Penicillins [PENICILLINS] Allergy (Severe, Verified 06/03/24 10:08) UNKNOWN amoxicillin [AMOXICILLIN] Allergy (Intermediate, Verified 06/03/24 10:08) UNKNOWN, anaphylaxis,rash cetirizine [From ZYRTEC] Allergy (Intermediate, Verified 06/03/24 10:08) SHORTNESS OF BREATH vancomycin [VANCOMYCIN] Allergy (Intermediate, Verified 06/03/24 10:08) RASH, itching animal dander Allergy (Unknown, Verified 06/03/24 10:08) HIVES loratadine [LORATADINE] Allergy (Unknown, Verified 06/03/24 10:08) THROAT SWELLING, hives SEAFOOD Allergy (Severe, Uncoded 06/03/24 10:08) ANAPHYLAXIS GRASS Allergy (Mild, Uncoded 06/03/24 10:08) HIVES penicillin Adverse Reaction (Unknown, Uncoded 06/03/24 10:08) anaphylaxis,rash Medication List - Last Reconciled 06/03/24 by Med Prince PA-C albuterol sulfate 2.5 mg (3 mL) inhalation Q4-6H PRN albuterol sulfate 90 mcg/actuation (ProAir HFA) 2 puffs inhalation Q4-6H PRN 30 days epinephrine (EpiPen) 0.3 mg (0.3 mL) IM ONCE PRN ibuprofen 800 mg PO Q8H PRN 14 days HPI HPI FC- L ankle fibular fracture WC DOI 05/30/24: Details: 29-year-old female presents to the office today for an injury she sustained to her left ankle on 05/30/2024. 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 She immediately felt pain and unable to apply weight to the leg she presented to the emergency department. X-rays were obtained which showed a distal fibular fracture and displacement of the mortise. She was placed in a sugar-tong splint of the ankle and made nonweightbearing and referred to our office for ortho eval. 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 She does have a history of DVT. She is not on any anticoagulation therapy. 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 Cognitive needs: No Hearing needs: No Vision needs: No Review of Systems Const All systems reviewed & are unremarkable except as noted in HPI and below Physical Exam Vital Signs: BMI result Body Mass Index 30.6 Const General: cooperative, healthy appearing, comfortable, no acute distress, well developed and alert Orientation/consciousness: patient oriented x3 HEENT Head: Yes normal to inspection, Yes normocephalic and Yes atraumatic Eyes General: appearance normal, both eyes and all related structures Neck Neck: Yes normal visual inspection and Yes no lymphadenopathy Resp Effort & Inspection: normal respiratory effort and able to speak in complete sentences Cardio Rate: regular rate Peripheral pulses: Peripheral pulses 2+ throughout GI Inspection: Yes normal to inspection Palpation (GI): Soft to palpation Skin General skin exam: no rashes or lesions noted Neuro General: patient oriented x3 Extrem Other: Left ankle normal to inspection. She has mild swelling throughout the ankle with tenderness over the lateral malleolus along the syndesmosis. Neurovascularly intact. Psych Appearance: grossly normal Mental Status: mental status grossly normal Office Procedures Casting/Splints [id number] Leg splint application Procedure code (CPT) selection complete Results Reviewed Results Reviewed: X-rays of the left ankle obtained on 06/02/2024 in the emergency department show a distal fibular fracture with widening of the ankle mortise. Assessment & Plan Assessment & Plan (1) Ankle fracture, left: Code(s): S82.892A - Other fracture of left lower leg, initial encounter for closed fracture Category: Medical Qualifiers: Encounter type: subsequent encounter Fracture healing: with routine healing Fracture type: closed Qualified Code(s): S82.892D - Other fracture of left lower leg, subsequent encounter for closed fracture with routine healing Plan: I discussed the extent of the injury to the patient and options available. Given the extent of the fracture pattern and high risk of further displacement, it is recommended that we surgically fix this to help with stability and restoring anatomy. I explained to the patient the procedure in detail along with the risks benefits and alternatives. Risks including but not limited to infection, wound breakdown, stiffness, on going pain, nonunion or malunion, and possible complications with hardware. She does understand all this and would like to proceed with open reduction internal fixation of the left ankle with Dr. Copeland. She will be booked accordingly. She was placed in a new sugar-tong ankle splint today in the office. Coding Level of Care Code New Pt Level 4 (64667) Complex EM visit Add On G2211 Diagnoses Ankle fracture, left S82.892D Encounter type: subsequent encounter Fracture healing: with routine healing Fracture type: closed CPT Codes Splint - CPT: [id number]-[id number] Leg splint application ([id number])
[2024-06-03 09:40] VITALS: BMI 30.6
--- OUTSIDE RECORDS SUMMARY | 2024-06-03 09:50 | XMS_ITS | Clinical Summary ---
Author Organization [facility] ity Address [address] [place] [address] Care Team Providers Care Engineering Assistant Name Role Phone Magnus Hampton MD Primary [...] age to complete this topic Care Teams Engineering Assistant Relationship Specialty Start Date End Date Magnus Hampton MD [address] [place] [address] Dr Kumar [facility] SAAD Maguire PCP - General 03/16/22
== END 2024-06-03 11:07 | disposition home or self-care (01) ==
LOC: HO.HOS 09:21
PROVIDERS: PCP Family Medicine; Visit Provider Physician Assistant
DX: S82.892A Other fracture of left lower leg, initial encounter for closed fracture (principal)
CPT/HCPCS: 27786; 99204

== ENCOUNTER → 2024-06-03 09:21 | Outpatient (BNVA) | payer OTHER, SELFPAY | PROVIDERS: PCP Family Medicine; Visit Provider Physician Assistant | DX: S82.892D Other fracture of left lower leg, subsequent encounter for closed fracture with routine healing (principal); X58.XXXD Exposure to other specified factors, subsequent encounter; Z86.718 Personal history of other venous thrombosis and embolism | CPT/HCPCS: 27786; 99202 ==

== ENCOUNTER 2024-06-14 06:44 | Day surgery (SDC) | payer OTHER, SELFPAY ==
--- OUTSIDE RECORDS SUMMARY | 2024-06-03 13:37 | XMS_ITS | Clinical Summary ---
Author Organization [facility] ity Address [address] [place] [address] Care Team Providers Care Bank Officer Name Role Phone Magnus Hampton MD Primary [...] age to complete this topic Care Teams Bank Officer Relationship Specialty Start Date End Date Magnus Hampton MD [address] [place] [address] Dr Kumar [facility] SAAD Maguire PCP - General 03/16/22
[2024-06-10 09:31] VITALS: BMI 30.6
--- NOTE | 2024-06-13 08:48 | HO.ANESPROP2 ---
Documented by User: Blanca Snyder NP 06/13/24 08:48 HPI - Anesthesia Eval Consult details Narrative: 29yo F for Left Ankle Fracture ORIF PMFSH Active Problems Active Problems: All Active Problems Renal stones (Acute) Vomiting (Acute) Constipation (Acute) Abdominal bloating (Acute) Abdominal pain (Acute) Environmental and seasonal allergies (Acute) Abnormal lung sounds (Acute) Breast pain, left (Acute) Immunization counseling (Acute) , delivered (Acute) Adult general medical exam (Acute) Dyspnea (Acute) state, incidental (Acute) Asthma (Acute) Tachycardia (Acute) Past Medical History Medical History (Updated 06/10/24 @ 09:31 by Brandee Sue RN) DVT (deep venous thrombosis) Tachycardia Asthma Family History Family History Father Stroke Diabetes Hypertension Paternal Grandmother Pacemaker Surgical History Surgical History H/O wisdom tooth extraction Social History Social History (Updated 06/03/24 @ 09:40 by ESTUARDO Pham) Housing: Apartment Alcohol intake: never Patient Tobacco Use Status: Never used Tobacco e-Cigarette/Vaping Use: Never Used Current occupational status: employed 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 Cognitive needs: No Hearing needs: No Vision needs: No Meds Allergies Allergy/AdvReac Type Severity Reaction Status Date / Time amoxicillin [AMOXICILLIN] Allergy Severe anaphylaxis Verified 06/10/24 09:25 ,rash omalizumab [From XOLAIR] Allergy Severe HIVES AND Verified 06/03/24 10:08 THROAT CLOSING Penicillins [PENICILLINS] Allergy Severe Anaphylaxis Verified 06/10/24 09:25 seafood Allergy Severe Anaphylaxis Verified 06/10/24 09:24 cetirizine [From ZYRTEC] Allergy Intermediate SHORTNESS Verified 06/03/24 10:08 OF BREATH vancomycin [VANCOMYCIN] Allergy Intermediate RASH, Verified 06/03/24 10:08 itching grass pollen Allergy Mild Hives Verified 06/10/24 09:24 animal dander Allergy Unknown HIVES Verified 06/03/24 10:08 loratadine [LORATADINE] Allergy Unknown THROAT Verified 06/03/24 10:08 SWELLING, hives Exam Height,Weight and Vital Signs: Height 5 ft 4 in Weight 80.739 kg Assessment and Plan Assessment Anesthesia Assessment: Chart Reviewed Documented by User: [place] MD 06/14/24 14:07 COUNT INCLUDES THE [facility] Past Medical History Medical History (Updated 06/10/24 @ 09:31 by Brandee Sue RN) DVT (deep venous thrombosis) Tachycardia Asthma Family History Family History Father Stroke Diabetes Hypertension Paternal Grandmother Pacemaker Family history of problems with anesthesia: No Surgical History Surgical History H/O wisdom tooth extraction History of Problems with Anesthesia: No Social History Social History (Updated 06/03/24 @ 09:40 by ESTUARDO Pham) Housing: Apartment Alcohol intake: never Patient Tobacco Use Status: Never used Tobacco e-Cigarette/Vaping Use: Never Used Current occupational status: employed 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 Cognitive needs: No Hearing needs: No Vision needs: No Meds Allergies Allergy/AdvReac Type Severity Reaction Status Date / Time amoxicillin [AMOXICILLIN] Allergy Severe anaphylaxis Verified 06/10/24 09:25 ,rash omalizumab [From XOLAIR] Allergy Severe HIVES AND Verified 06/03/24 10:08 THROAT CLOSING Penicillins [PENICILLINS] Allergy Severe Anaphylaxis Verified 06/10/24 09:25 seafood Allergy Severe Anaphylaxis Verified 06/10/24 09:24 cetirizine [From ZYRTEC] Allergy Intermediate SHORTNESS Verified 06/03/24 10:08 OF BREATH vancomycin [VANCOMYCIN] Allergy Intermediate RASH, Verified 06/03/24 10:08 itching grass pollen Allergy Mild Hives Verified 06/10/24 09:24 animal dander Allergy Unknown HIVES Verified 06/03/24 10:08 loratadine [LORATADINE] Allergy Unknown THROAT Verified 06/03/24 10:08 SWELLING, hives Exam Airway Mallampati Class: II TM Dist: >3cm Neck ROM: Full Loose/Missing/Broken Teeth: No Assessment and Plan Assessment Anesthesia Assessment: Anesthesia Plan Discussed Final Anesthetic Review Family History of Problems with Anesthesia: No History of Problems with Anesthesia: No NPO: Yes ASA Class: I Final Preanesthetic Review: No Changes in Pt Med Stat, Meds/Allgs Chart Reviewed, Consent Obtained/Reviewed and Anes Risks/Benef Reviewed Patient Risk: Low Procedure Risk: Low Anesthetic Plan Anesthetic Plan: GA and Regional Block Disposition: Standard PACU
[2024-06-14] VITALS (7 sets, daily range): BP systolic 109–116; BP diastolic 61–75; PULSE 61–86; RESP 16–17; TEMP 36.8–36.9; O2SAT 99–100
--- NOTE | ~2024-06-14 | FL_ITS ---
EXAMINATION: FL GUIDANCE ONLY HISTORY: left ankle ORIF COMPARISON: Comparison is made with plain films of the left ankle dated 06/02/2024. TECHNIQUE: Fluoroscopy time: 0.1 minutes. Cumulative Dose: 0.222 mGy. DAP: 0.76324 mGym2 Images: 3. FINDINGS: Images demonstrate internal fixation of the previously noted fracture of the distal fibula with a sideplate and multiple orthopedic screws. FL/FL guidance in OR IMPRESSION: Fluoroscopy during procedure. Please see procedure report for additional information. Electronically signed by: Delvis Rivera MD 06/15/2024 03:02 PM EDT
[2024-06-14 07:33] LABS: UPreg QC Valid YES
[2024-06-14 07:35] LABS: Urine Pregnancy NEGATIVE (NEGATIVE)
--- NOTE | 2024-06-14 07:44 | PC.NURSE ---
rash noted to right lower leg and left upper leg from laundry detergent. 1 month ago.
[2024-06-14] MEDS: Lactated Ringers 1,000 ML 100 ML IVCONT (07:51)
--- NOTE | 2024-06-14 09:26 | MHC.SHP ---
Pre-Procedural Eval Section A - 24 Hr Update-Section A only Date of Service: 06/14/24 The patient is an INPATIENT: No Changes since office visit: No Cold of Flu in the past 2 weeks, No New Medical Problems, No Changes in Medication and No Patient answered all questions The patient has been examined within 24 hours of the surgical procedure. The History & Physical has been completed within 30 days and I have reviewed it.: Yes Section B - Complete if H&P > 30 days Chief Complaint: Other fracture of left lower leg, subsequent Allergies: Allergies Allergy/AdvReac Type Severity Reaction Status Date / Time amoxicillin [AMOXICILLIN] Allergy Severe anaphylaxis Verified 06/10/24 09:25 ,rash omalizumab [From XOLAIR] Allergy Severe HIVES AND Verified 06/03/24 10:08 THROAT CLOSING Penicillins [PENICILLINS] Allergy Severe Anaphylaxis Verified 06/10/24 09:25 seafood Allergy Severe Anaphylaxis Verified 06/10/24 09:24 cetirizine [From ZYRTEC] Allergy Intermediate SHORTNESS Verified 06/03/24 10:08 OF BREATH vancomycin [VANCOMYCIN] Allergy Intermediate RASH, Verified 06/03/24 10:08 itching grass pollen Allergy Mild Hives Verified 06/10/24 09:24 animal dander Allergy Unknown HIVES Verified 06/03/24 10:08 loratadine [LORATADINE] Allergy Unknown THROAT Verified 06/03/24 10:08 SWELLING, hives Plan I have reviewed the history and physical and performed a pertinent physical examination on my patient. No changes have occurred unless specified. Time Spent With Patient Time: Total time managing care of this patient today ____ minutes.
[2024-06-14] MEDS: Clindamycin Phosphate/D5W 600 MG/50 ML PIGGYBACK 100 MG IV (10:00)
--- NOTE | 2024-06-14 11:08 | W.PM.OPN ---
Operative Note Operative Note Date of Service: 06/14/24 Narrative: Date of Service: 06/14/24 Pre-op diagnosis: Left fibula fracture Post-op diagnosis: same Procedure: ORIF left lateral malleolus Implants: Zac Pangea 4 hole locking plate Surgeon: Zachary Copeland MD Anesthesia: GLMA and regional Was an Field Talent Qualification Specialist used for this Procedure?: No Estimated blood loss (mL): 20 Tourniquet time (min): 37 IV fluids (mL): 800 Pathology: none sent Condition: stable Disposition: PACU Procedure in detail: Patient was brought to the operating room and placed supine on the operative table. All bony prominences were well padded and a time-out was called to identify proper site proper procedure proper surgeon. IV antibiotics per weight were administered. I began by exsanguinating limb is slightly tourniquet to 300 mm Hg. I then made a standard posterolateral incision over the fibula. Full-thickness flaps were taken down to the fibular shaft and distal fibula. The fracture was identified and cleaned with a combination of curette, rongeur and irrigation. A lobster claw was used to provisionally reduce the fracture and a 22 mm lag screw was placed from posterior to anterior and distal to proximal. Standard AO technique was used and the fracture reduction was maintinaed. A 4 hole Pangea direct lateral locking plate was applied and provisionally held in place. Biplanar fluoroscopy was used to confirm hardware position and fracture reduction. The remaining locking and non-locking shaft screws were placed. Again biplanar flouro was used to confirm hardware position and fracture reduction. Once I was satisfied that both of these were acceptable I irrigated copiously and turned my attention to the syndesmosis. An external rotation stress test was used and compared to the mortise view. there was no syndesmotic widening. Therefore all instrumentation was removed and copious irrigation was performed. Absorbable 3.0 Vicryl suture and ana were used for closure and the patient was placed into sterile dressings and a well-padded posterior splint. Tourniquet was let down and the patient was extubated brought to recovery room in stable condition there were no known complications.
== END 2024-06-14 12:39 | disposition home or self-care (01) ==
PROVIDERS: Nurse Practitioner; PCP Family Medicine; Visit Provider Orthopaedic Surgery
PROC: (CPT 27792; principal; 2024-06-14 09:30)
DX: S82.402A Unspecified fracture of shaft of left fibula, initial encounter for closed fracture (principal); Z86.718 Personal history of other venous thrombosis and embolism; R00.0 Tachycardia, unspecified; J45.909 Unspecified asthma, uncomplicated; Z79.1 Long term (current) use of non-steroidal anti-inflammatories (NSAID); Z79.899 Other long term (current) drug therapy; Z88.0 Allergy status to penicillin; Z88.1 Allergy status to other antibiotic agents; Z88.8 Allergy status to other drugs, medicaments and biological substances; X50.1XXA Overexertion from prolonged static or awkward postures, initial encounter; W18.39XA Other fall on same level, initial encounter; Y93.69 Activity, other involving other sports and athletics played as a team or group; Y92.218 Other school as the place of occurrence of the external cause; Y99.0 Civilian activity done for income or pay
CPT/HCPCS: 27792; 81025; C1713; J0736; J2003; J2250; J2405; J2704; J2795

== ENCOUNTER → 2024-06-14 06:44 | Outpatient (BNV) | payer OTHER, SELFPAY | PROVIDERS: PCP Family Medicine; Visit Provider Orthopaedic Surgery | DX: S82.62XA Displaced fracture of lateral malleolus of left fibula, initial encounter for closed fracture (principal) | CPT/HCPCS: 27792 ==

== ENCOUNTER 2024-06-27 09:34 | Outpatient (AMB) | payer OTHER, SELFPAY ==
--- NOTE | 2024-06-27 09:38 | A.OFFVIS_ITS ---
Intake Visit Reasons: PO-Lt Ankle ORIF 06/14/24 Intake Note: Nedra is a 29 year old female who presents today for a post op appointment s/p left lateral malleolus ORIF 06/14/24 NE. Patient reports she is doing well, stating her pain comes and goes. Allergies amoxicillin [AMOXICILLIN] Allergy (Severe, Verified 06/27/24 09:47) anaphylaxis,rash omalizumab [From XOLAIR] Allergy (Severe, Verified 06/27/24 09:47) HIVES AND THROAT CLOSING Penicillins [PENICILLINS] Allergy (Severe, Verified 06/27/24 09:47) Anaphylaxis seafood Allergy (Severe, Verified 06/27/24 09:47) Anaphylaxis cetirizine [From ZYRTEC] Allergy (Intermediate, Verified 06/27/24 09:47) SHORTNESS OF BREATH vancomycin [VANCOMYCIN] Allergy (Intermediate, Verified 06/27/24 09:47) RASH, itching grass pollen Allergy (Mild, Verified 06/27/24 09:47) Hives animal dander Allergy (Unknown, Verified 06/27/24 09:47) HIVES loratadine [LORATADINE] Allergy (Unknown, Verified 06/27/24 09:47) THROAT SWELLING, hives Medication List - Last Reconciled 06/27/24 by Med Prince PA-C albuterol sulfate 2.5 mg (3 mL) inhalation Q4-6H PRN epinephrine (EpiPen) 0.3 mg (0.3 mL) IM ONCE PRN HPI HPI PO-Lt Ankle ORIF 06/14/24: Details: A 29-year-old female returns to the office today 2 weeks status post left ankle ORIF 06/14/[address] Copeland. She is doing well today with no concerns. 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 No surrounding erythema or wound breakdown. Neurovascularly intact. Office Procedures Casting/Splints 87184-[employer] Leg Cast Application Procedure code (CPT) selection complete Results Reviewed Results Reviewed: X-rays of the left ankle obtained in the office today and reviewed by me are significant for intact orthopedic hardware with intact mortise Assessment & Plan Assessment & Plan (1) Ankle fracture, left: Code(s): S82.892A - Other fracture of left lower leg, initial encounter for closed fracture Category: Medical Qualifiers: Encounter type: subsequent encounter Fracture healing: with routine healing Fracture type: closed Qualified Code(s): S82.892D - Other fracture of left lower leg, subsequent encounter for closed fracture with routine healing Plan: Alek will remain intact until this Thursday to allow for more healing. She was placed in a short-leg cast today she will remain nonweightbearing. She was given a prescription for a kneeling scooter to assist in her ambulation. She will see me back on Thursday for cast off and staple removal. Orders: Orders XR ankle LT min 3V Today M25.572 - Pain in left ankle and joints of left foot Medications: New [Kneeling Scooter] As directed 1 ea 0RF Crush injury let ankle S82.892D - Other fracture of left lower leg, subsequent encounter for closed fracture with routine healing tramadol 50 mg PO BID 14 tabs 0RF 7 days Coding Level of Care Code Global (83268) Diagnoses Ankle fracture, left S82.892D Encounter type: subsequent encounter Fracture healing: with routine healing Fracture type: closed CPT Codes Casting - CPT: 52521-[employer] Leg Cast Application ([id number])
--- OUTSIDE RECORDS SUMMARY | 2024-06-27 09:52 | XMS_ITS | Clinical Summary ---
[facility] [address] [place] [address] Care Team Providers Care Biology Specialist Name Role Phone Magnus Hampton MD [...] age to complete this topic Care Teams Biology Specialist Relationship Specialty Start Date End Date Magnus Hampton MD [address] [place] [address] Dr Kumar [facility] SAAD Maguire PCP - General 03/16/22
== END 2024-06-27 11:19 | disposition home or self-care (01) ==
LOC: HO.HOS 09:34
PROVIDERS: PCP Family Medicine; Visit Provider Physician Assistant
DX: S82.892D Other fracture of left lower leg, subsequent encounter for closed fracture with routine healing (principal)
CPT/HCPCS: 29405; 99024

== ENCOUNTER → 2024-06-27 09:36 | Outpatient (BNV) | payer OTHER, SELFPAY | PROVIDERS: Visit Provider Radiology Diagnostic Radiology | DX: M25.572 Pain in left ankle and joints of left foot (principal) | CPT/HCPCS: 73610 ==

== ENCOUNTER 2024-06-27 11:18 | Outpatient (REF) | payer OTHER, SELFPAY ==
--- NOTE | ~2024-06-27 | XR_ITS ---
CLINICAL HISTORY: M25.572 - Pain in left ankle and joints of left foot --- Additional Notes or Specia l Instructions: splint off Left ankle three views Comparison: 06/02/2024 Findings: Status post distal fibular fracture fixation. Plates and screws intact without loosening. No additional bony abnormality identified. Ankle mortise is intact. Impression: Status post distal fibular fracture fixation This document has been electronically signed by: Wilfred Mixon MD on 06/27/2024 19:54:50
--- OUTSIDE RECORDS SUMMARY | 2024-06-28 12:47 | XMS_ITS | Clinical Summary ---
[facility] Organization [facility] Address [address] [place] [address] Care Team Providers Care Political Aide Name Role Phone Magnus Hampton MD Primary [...] age to complete this topic Care Teams Political Aide Relationship Specialty Start Date End Date Magnus Hampton MD [address] [place] [address] Dr Kumar [facility] SAAD Maguire PCP - General 03/16/22
== END 2024-06-27 11:19 | disposition home or self-care (01) ==
LOC: HO.HOSX 11:18
PROVIDERS: Visit Provider Physician Assistant
DX: M25.572 Pain in left ankle and joints of left foot (principal); S82.892D Other fracture of left lower leg, subsequent encounter for closed fracture with routine healing
CPT/HCPCS: 29405; 73610; 99212

== ENCOUNTER 2024-07-01 10:37 | Outpatient (AMB) | payer OTHER, SELFPAY ==
--- NOTE | 2024-07-01 10:51 | A.OFFVIS_ITS ---
Intake Visit Reasons: PO- LT ankle ORIF, DOS 06/14/24 NE Intake Note: Nedra is a 29 year old female who presents today for a post operative left lateral malleolus ORIF on 06/14/[address] Copeland. At patient last visit she was placed in a cast. Patient reports that she has been doing well. States most discomfort comes with swelling, however she finds relief with elevation. Patient request a RTW letter with a start date of 06/27/24. Allergies amoxicillin [AMOXICILLIN] Allergy (Severe, Verified 06/27/24 09:47) anaphylaxis,rash omalizumab [From XOLAIR] Allergy (Severe, Verified 06/27/24 09:47) HIVES AND THROAT CLOSING Penicillins [PENICILLINS] Allergy (Severe, Verified 06/27/24 09:47) Anaphylaxis seafood Allergy (Severe, Verified 06/27/24 09:47) Anaphylaxis cetirizine [From ZYRTEC] Allergy (Intermediate, Verified 06/27/24 09:47) SHORTNESS OF BREATH vancomycin [VANCOMYCIN] Allergy (Intermediate, Verified 06/27/24 09:47) RASH, itching grass pollen Allergy (Mild, Verified 06/27/24 09:47) Hives animal dander Allergy (Unknown, Verified 06/27/24 09:47) HIVES loratadine [LORATADINE] Allergy (Unknown, Verified 06/27/24 09:47) THROAT SWELLING, hives HPI HPI PO- LT ankle ORIF, DOS 06/14/24 NE: Details: 29-year-old female returns to the office today for a follow-up left ankle ORIF date of surgery 06/14/2024. She has returned to work on 06/27 and has no concerns today. 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 No erythema. Mild swelling. Pulses present. Sensation intact. Office Procedures Casting/Splints [id number] Leg Cast Application Procedure code (CPT) selection complete Assessment & Plan Assessment & Plan (1) Ankle fracture, left: Code(s): S82.892A - Other fracture of left lower leg, initial encounter for closed fracture Category: Medical Qualifiers: Encounter type: subsequent encounter Fracture healing: with routine healing Fracture type: closed Qualified Code(s): S82.892D - Other fracture of left lower leg, subsequent encounter for closed fracture with routine healing Plan: Alek removed today Steri-Strips applied. There is some moisture to the incision and she was advised to keep this as dry as possible. She was placed in a short-leg cast with a window cut out around the incision. This will allow the incision to try out but also prevent the incision from getting wet from sweating. She will cover this while at work and while sleeping. She will remain nonweightbearing. She can see me back in 1 week for wound check. Coding Level of Care Code Global (36943) Diagnoses Ankle fracture, left S82.892D Encounter type: subsequent encounter Fracture healing: with routine healing Fracture type: closed CPT Codes Casting - CPT: 45449-[employer] Leg Cast Application ([id number])
--- OUTSIDE RECORDS SUMMARY | 2024-07-01 11:06 | XMS_ITS | Clinical Summary ---
[facility] [address] [place] [address] Care Team Providers Care Switch Inspector Name Role Phone Magnus Hampton MD Primary [...] age to complete this topic Care Teams Switch Inspector Relationship Specialty Start Date End Date Magnus Hampton MD [address] [place] [address] Dr Kumar [facility] SAAD Maguire PCP - General 03/16/22
== END 2024-07-01 12:22 | disposition home or self-care (01) ==
LOC: HO.HOS 10:38
PROVIDERS: PCP Family Medicine; Visit Provider Physician Assistant
DX: S82.892D Other fracture of left lower leg, subsequent encounter for closed fracture with routine healing (principal)
CPT/HCPCS: 29405; 99024

== ENCOUNTER → 2024-07-01 10:37 | Outpatient (BNVA) | payer OTHER, SELFPAY | PROVIDERS: PCP Family Medicine; Visit Provider Physician Assistant | DX: S82.892D Other fracture of left lower leg, subsequent encounter for closed fracture with routine healing (principal) | CPT/HCPCS: 29405; 99212 ==

== ENCOUNTER 2024-07-03 14:50 | Emergency (ER) | payer OTHER, SELFPAY ==
[2024-07-03 14:57] VITALS: BP 120/66; PULSE 76; RESP 16; TEMP 36.8; O2SAT 97; BMI 30.6
--- NOTE | 2024-07-03 14:58 | ED_ITS ---
HPI - General Adult General Chief complaint: General Medical Stated complaint: post op infection Time Seen by Provider: 07/03/24 16:10 Source: patient Mode of arrival: wheelchair Limitations: no limitations History of Present Illness ED Provider: Raya Tatum PA-C HPI narrative: Patient is a 29 year old assigned female at with a history of asthma and left ankle fracture s/p ORIF on 06/14/[address] Copeland presenting to the emergency department today with concerns of an incisional infection. Patient states that she was seen in the orthopedic office on 07/01/2024 and at that time they put her in a cast with a window to keep the incision dry and regularly change dressings. Patient states that since then she has had some increased redness, itching around the area, and drainage from the incision. Patient denies any dizziness, lightheadedness, abdominal pain, nausea, vomiting, fever, chills, blurry vision, double vision, loss of vision, chest pain, difficulty breathing, shortness of breath, back pain, night sweats, pain with urination, increased urinary frequency, increased urinary urgency, blood in her urine or stool, syncope or a near syncopal episode, bowel incontinence, bladder incontinence, or any other complaints at this time. Relieving factors: none Exacerbating factors: none Associated symptoms: denies other symptoms Related Data Previous Rx's ?Medication ?Instructions ?Recorded albuterol sulfate 2.5 mg/3 mL 2.5 mg (3 mL) inhalation Q4-6H PRN 12/21/22 (0.083 %) solution for nebulization shortness of breath or wheezing #90 mL epinephrine 0.3 mg/0.3 mL 0.3 mg (0.3 mL) IM ONCE PRN 01/28/23 injection, auto-injector (EpiPen) anaphylaxis #2 ea Kneeling Scooter #1 ea 06/27/24 tramadol 50 mg tablet 50 mg PO BID 7 days #14 tabs 06/27/24 sulfamethoxazole 800 1 tab PO BID 7 days #14 tabs 07/03/24 mg-trimethoprim 160 mg tablet (Bactrim DS) Allergies Allergy/AdvReac Type Severity Reaction Status Date / Time amoxicillin [AMOXICILLIN] Allergy Severe anaphylaxis Verified 07/03/24 15:00 ,rash omalizumab [From XOLAIR] Allergy Severe HIVES AND Verified 07/03/24 15:00 THROAT CLOSING Penicillins [PENICILLINS] Allergy Severe Anaphylaxis Verified 07/03/24 15:00 seafood Allergy Severe Anaphylaxis Verified 07/03/24 15:00 cetirizine [From ZYRTEC] Allergy Intermediate SHORTNESS Verified 07/03/24 15:00 OF BREATH vancomycin [VANCOMYCIN] Allergy Intermediate RASH, Verified 07/03/24 15:00 itching grass pollen Allergy Mild Hives Verified 07/03/24 15:00 animal dander Allergy Unknown HIVES Verified 07/03/24 15:00 loratadine [LORATADINE] Allergy Unknown THROAT Verified 07/03/24 15:00 SWELLING, hives Review of Systems 2 Constitutional: Constitutional: Reports no additional constitutional complaints, Denies chills, Denies fever(s) and Denies night sweats Eyes: Eyes: Reports no additional eye complaints, Denies blurry vision, Denies change in vision, Denies diplopia, Denies eye discharge, Denies loss of vision and Denies eye pain ENT: Denies dizziness Cardiovascular: Cardiovascular: Reports no additional cardiovascular complaints, Denies chest pain, Denies lightheadedness, Denies Loss of Consciousness and Denies dyspnea Respiratory: Respiratory: Reports no additional respiratory complaints and Denies dyspnea Gastrointestinal: Gastrointestinal: Reports no additional gastrointestinal complaints, Denies abdominal pain, Denies melena, Denies hematochezia, Denies change in bowel habits and Denies change in stool character Genitourinary: Genitourinary: Denies hematuria, Denies urinary frequency, Denies dysuria, Denies urinary incontinence, Denies urinary hesitancy and Denies urinary urgency Musculoskeletal: Musculoskeletal: Reports no additional musculoskeletal complaints, Denies numbness and Denies tingling Integumentary/Breasts: Comments: left ankle incision redness, draining, and itchiness Neurologic: Denies dizziness, Denies loss of vision, Denies numbness and Denies tingling Psychiatric: Psychiatric: Reports no additional psychiatric complaints Endocrine: Endocrine: Reports no additional endocrine complaints Hematologic/Lymphatic: Hematologic/Lymphatic: Reports no additional hematologic/lymphatic complaints Allergic/Immunologic: Allergic/Immunologic: Reports no additional allergic/immunologic complaints PMFSH Past Medical History Attestation statement: The following information was validated with the patient. Source: old records reviewed and nursing notes reviewed Medical History DVT (deep venous thrombosis) Tachycardia Asthma Surgical History H/O wisdom tooth extraction Family History Family History Father Stroke Diabetes Hypertension Paternal Grandmother Pacemaker Social History Social History Housing: Apartment Alcohol intake: never Patient Tobacco Use Status: Never used Tobacco Smoked in Last 30 Days: No e-Cigarette/Vaping Use: Never Used Use of substances other than those prescribed or required for medical reasons: No Advance Directives: No Advance Directives Information Provided: No Current occupational status: employed 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 Cognitive needs: No Hearing needs: No Vision needs: No Physical Exam ED Vital Signs: Vital Signs - 24 hr 07/03/24 14:57 07/03/24 17:30 Temperature 98.3 F 98.3 F Pulse Rate 76 76 Respiratory Rate 16 16 Blood Pressure 120/66 120/66 Pulse Oximetry 97 97 Oxygen Delivery Method Room Air Room Air BMI result Body Mass Index 30.6 Const General: cooperative, no acute distress, alert and awake Nutritional Appearance: well nourished Orientation/consciousness: patient oriented x3 HENMT Head: Yes normal to inspection and Yes atraumatic Ears: hearing grossly normal bilaterally and external ears normal General nose exam: Normal external nose present, no nasal discharge noted and no epistaxis Face and sinus: Yes normal facial exam, No abrasion and No laceration Mouth: Normal oral and palatal mucosa present, no drooling and no muffled voice Eyes General: appearance normal, both eyes and all related structures Periorbital: periorbital findings normal Eyelids: Yes eyelids normal Conjunctivae: conjunctivae normal Pupils: Equal, round and reactive pupils present EOM: EOMs intact bilaterally Neck Neck: Yes normal visual inspection, Yes full ROM and Yes no lymphadenopathy Resp Effort & Inspection: normal respiratory effort and able to speak in complete sentences Neuro General: patient oriented x3, moves all extremities and CN's II-XI intact bilaterally Cranial nerves: Yes Equal, round and reactive pupils present Cognition (Neuro): normal cognition Extrem Other: General: Yes capillary refill normal Psych Appearance: grossly normal Mental Status: mental status grossly normal Affect: normal affect Attitude: cooperative Thought process: Normal thought process present Thought content: Normal thought content present Insight: Good insight present (Psych) Course Course Course Narrative: 07/03/24 1459 SANDRA Hayes This is a Rapid Medical Examination (RME) performed by Sushma Min PA-C in triage. Full HPI, ROS, assessment and treatment plan per primary provider in the Main ED. Hx: 29 yo F s/p left lateral malleolus ORIF on 06/14/24 w/ Dr. Copeland here w/ concern for post-op infection. recently had ana removed. there was concern that the area wasn't healing well so they created a window in the cast over incision site. she reports increasing redness/ drainage from the incision site. Plan: screening labs Procedures Cast Removal Reason for procedure: other (told to remove by the orthopedic team) Cut saw used: Yes Cast procedure: removal Post Removal Neuro Exam: intact Post Removal Vascular Exam: intact Patient Tolerated Procedure: well Orthopedic Splinting/Casting Injury #1: Side: left Lower Extremity Injury Location: ankle Lower Extremity Immobilizer: posterior splint Other Orthopedic Equipment: crutches Medical Decision Making Medical Decision Making MDM Narrative: Patient is a 29 year old assigned female at with a history of asthma and left ankle fracture s/p ORIF on 06/14/[address] Copeland presenting to the emergency department today with concerns of an incisional infection. Patient's physical exam was as noted in the physical exam portion of this note. Patient's blood work showed an ESR of 21 but otherwise unremarkable. I spoke with the orthopedic team who recommended removing the cast, applying a non-stick gauze to the area, starting the patient on Bactrim, applying a posterior short leg splint, and having her follow up with the office tomorrow (07/04/2024). I explained my physical exam findings as well as all test results to the patient. I answered all questions asked by the patient. Patient's left ankle cast was removed, per procedure note, without incident. Patient's left ankle wound was dressed with a non-stick and loose webroll, without incident. Patient's PMS was intact prior to and after dressing application. Patient's left lower extremity was placed in a posterior short leg splint, without incident. Patient's PMS was intact prior to and after splint placement. I stressed the importance of the patient taking her medication as directed (either prescribed or as the over the counter packaging recommends). I stressed the importance of the patient following up with her primary care provider and the orthopedic team. I stressed the importance of the patient returning to the emergency department immediately if her symptoms were to worsen or if she were to develop any dizziness, shortness of breath, difficulty breathing, chest pain, blurry vision, loss of vision, nausea, vomiting, abdominal pain, fever, chills, back pain, or any other complaints. Patient verbalized agreement and understanding with this treatment plan and discharge. Differential Diagnosis Differential Diagnoses: The differential diagnosis associated with the presentation includes Ankle incision infection Post-op complication Admission/Observation Consideration of admission/observation: Escalation of care including admission/observation considered Patient would have been admitted to the hospital had her work up had any findings where hospital admission was appropriate and her clinical presentation warranted hospital admission. Consult Healthcare Provider Management of the patient was discussed with: Outbound Sales Specialist (I spoke with the orthopedic team as noted in the MDM Rationale portion of this note.) Lab Data [facility] Lab Attestation statement: I reviewed the patient's lab results. My interpretation of these results are in the MDM Rationale portion of this note. 07/03/24 15:22 07/03/24 15:22 Labs: Lab Results 07/03/24 Range/Units 15:22 WBC 9.4 (4.8-10.8) X10*3/uL RBC 4.61 (4.20-5.50) X10*6/uL Hgb 10.4 L (12.0-16.0) g/dl Hct 33.0 L (37.0-47.0) % MCV 71.6 L (80.0-98.0) fL MCH 22.6 L (27.0-33.0) pg MCHC 31.5 (31.0-35.0) g/dl RDW 14.3 (11.0-16.0) % Plt Count 204 (160-400) X10*3/uL MPV Not Reportable Immature Gran % (Auto) 0.4 (0.0-0.4) % Neut % (Auto) 80.1 H (45-73) % Lymph % (Auto) 12.3 L (20-40) % Knott % (Auto) 4.6 (2-11) % Eos % (Auto) 2.2 (0-4) % Baso % (Auto) 0.4 (0-2) % Lymph # (Auto) 1.2 (1.2-4.9) X10*3/uL Knott # (Auto) 0.4 (0.1-1.2) X10*3/uL Eos # (Auto) 0.2 (0.0-0.4) X10*3/uL Baso # (Auto) 0.0 (0.0-0.2) X10*3/uL Abs Immat Gran (auto) 0.04 H (0.00-0.03) X10*3/uL Absolute Neuts (auto) 7.6 (2.0-8.3) x10*3/uL Absolute Nucleated RBC 0.000 (0.0-0.012) X10*3/uL Nucleated RBC % (auto) 0.0 (0.0-0.2) /100WBC Smear Tech's Comments VERIFIED ESR 21 H (0-20) MM/HR Sodium 143 (135-145) mmol/L Potassium 3.8 (3.3-5.1) mmol/L Chloride 110 H (96-108) mmol/L Carbon Dioxide 24 (22-29) mmol/L Anion Gap 13 (12-20) BUN 16 (9-16) mg/dL Creatinine 0.59 (0.5-1.4) mg/dL Estim Creat Clear Calc 147.2 Estimated GFR > 60 Random Glucose 96 (60-115) mg/dL Calcium 9.5 (8.4-10.2) mg/dL Total Bilirubin 0.4 (0.0-1.0) mg/dL AST 20 (5-31) U/L ALT 16 (0-31) U/L Alkaline Phosphatase 64 (39-117) U/L C-Reactive Protein 0.21 (< or = 0.50) mg/dL Total Protein 7.2 (6.5-8.0) g/dL Albumin 4.3 (3.5-5.0) g/dL Beta HCG, Quant < 2 mIU/mL Prescription Management I considered prescription management with: Antibiotic (patient prescribed an antibiotic as recommended by the orthopedic team) Critical Care Time Critical Care Time Critical Care Time: Yes Total Critical Care Time: 34 Attestation: I spent 34 minutes of Critical Care Time with this patient. This does not include time spent on separately reported billable procedures. Discharge Plan Discharge Clinical Impression: Complication, postoperative infection, Ankle fracture Patient Disposition: Home, Self-Care Instructions: Wound Infection (DC) Additional Instructions: Do NOT get your splint wet. Do NOT remove your splint. If you have any change in sensation, movement, or color of your left foot / toes - you may loosen the outer FILIPE wraps. If you find yourself loosening the FILIPE wraps to the point of seeing the white splint material underneath - STOP and proceed to your closest Emergency Department, immediately. Follow up with your primary care provider and the orthopedic team (on 07/04/2024 as we discussed). Return to the emergency department immediately if your symptoms worsen or if you develop any numbness, tingling, dizziness, shortness of breath, difficulty breathing, chest pain, blurry vision, loss of vision, nausea, vomiting, abdominal pain, fever, chills, back pain, or any other complaints. Please see the information below about our Patient Portal. If you are not yet enrolled in the [facility] Patient Portal, you will receive an enrollment email invitation following your visit to any [facility] setting. You may also self-enroll in the Patient Portal by visiting our website: [email or web address] The following information is required to access the Patient Portal: - Your [facility] Medical Record Number - Your personal home email address (must match what is in your electronic medical record, Registration staff can assist with this) - Name - Date of Capabilities of the Patient Portal: - Message some providers - View upcoming appointments - Access your health summary, medical history, and visit history - View current conditions and allergies - View procedure and lab results - View your medications, including guidelines, side effects, and precautions - Complete pre-appointment questionnaires requested by your provider - Ready summary reports of your office visits and procedures To access the Patient Portal Mobile David, follow these directions: - Search youwho in the David Store or Google Play Store - Download the David - Search for [facility] - Enter your login/password Prescriptions: New sulfamethoxazole-trimethoprim [Bactrim DS] 800-160 mg tablet 1 tab PO BID 7 Days Qty: 14 0RF No Action albuterol sulfate 2.5 mg /3 mL (0.083 %) solution for nebulization 2.5 mg inhalation Q4-6H PRN (Reason: shortness of breath or wheezing) Qty: 90 0RF (DME) Kneeling Scooter See Rx Instructions .ROUTE .MEDSUPPLY Qty: 1 0RF Rx Instructions: As directed tramadol 50 mg tablet 50 mg PO BID 7 Days Qty: 14 0RF epinephrine [EpiPen] 0.3 mg/0.3 mL auto-injector 0.3 mg IM ONCE PRN (Reason: anaphylaxis) Qty: 2 0RF Rx Instructions: for 2 doses Referrals: [facility] [Provider Group] (You should be receiving a call from their office on 07/04/2024 however - if you do not hear from them by 10:00 am - call their office. ) Magnus Hampton MD [Primary Care Provider] - Stand Alone Forms: Work/School Release Interventions: ED Discharge Assessment Last Done: 07/03/24 17:30 Discharge Date/Time: 07/03/24 17:31 Print Language: Bulgarian
[2024-07-03 15:36] LABS: Basophils Percent Auto 0.4 % (0-2); Lymphocytes Percent Auto 12.3 % (20-40); Red Cell Distribution Width 14.3 % (11.0-16.0); SCAN SMEAR FLAG 1
[2024-07-03 15:38] LABS: Eosinophils Absolute Auto 0.2 X10*3/uL (0.0-0.4); Eosinophils Percent Auto 2.2 % (0-4); Hemoglobin 10.4 g/dl (12.0-16.0); Imm Gran Abs Auto 0.04 X10*3/uL (0.00-0.03); Imm Gran Pct Auto 0.4 % (0.0-0.4); Lymphocytes Absolute Auto 1.2 X10*3/uL (1.2-4.9); MANUAL DIFF FLAG SCAN; Mean Corpuscular HGB Conc 31.5 g/dl (31.0-35.0); Mean Corpuscular Hemoglobin 22.6 pg (27.0-33.0); Mean Corpuscular Volume 71.6 fL (80.0-98.0); Monocytes Absolute Auto 0.4 X10*3/uL (0.1-1.2); Monocytes Percent Auto 4.6 % (2-11); Neutrophils Absolute Auto 7.6 x10*3/uL (2.0-8.3); Neutrophils Percent Auto 80.1 % (45-73); Platelet Count 204 X10*3/uL (160-400); Red Blood Count 4.61 X10*6/uL (4.20-5.50); White Blood Count 9.4 X10*3/uL (4.8-10.8)
[2024-07-03 16:10] LABS: PLT ABN DIST 1
[2024-07-03 16:11] LABS: SLIDE REVIEW VERIFIED
[2024-07-03 16:22] LABS: HCG Quantitative < 2 mIU/mL
[2024-07-03 16:23] LABS: Alanine Aminotransferase 16 U/L (0-31); Albumin Level 4.3 g/dL (3.5-5.0); Anion Gap 13 (12-20); Aspartate Amino Transferase 20 U/L (5-31); Bilirubin Total 0.4 mg/dL (0.0-1.0); Blood Urea Nitrogen 16 mg/dL (9-16); C Reactive Protein 0.21 mg/dL (< or = 0.50); Calcium 9.5 mg/dL (8.4-10.2); Carbon Dioxide 24 mmol/L (22-29); Chloride 110 mmol/L (96-108); Creatinine Clr Calc Pharmacy 147.2; Estimated Glomerular Filt Rate > 60; Glucose Random 96 mg/dL (60-115); Potassium 3.8 mmol/L (3.3-5.1); Sodium 143 mmol/L (135-145); Total Protein 7.2 g/dL (6.5-8.0)
[2024-07-03 16:29] LABS: Erythrocyte Sedimentation Rate 21 MM/HR (0-20)
[2024-07-03 17:07] LABS: Alkaline Phosphatase 64 U/L (39-117)
[2024-07-03 17:30] VITALS: BP 120/66; PULSE 76; RESP 16; TEMP 36.8; O2SAT 97
== END 2024-07-03 17:31 | disposition home or self-care (01) ==
PROVIDERS: Physician Assistant Medical; Emergency Provider Emergency Medicine Emergency Medical Services; PCP Family Medicine
DX: T81.49XA Infection following a procedure, other surgical site, initial encounter (principal); Y82.8 Other medical devices associated with adverse incidents; S82.62XA Displaced fracture of lateral malleolus of left fibula, initial encounter for closed fracture; X58.XXXA Exposure to other specified factors, initial encounter; Y93.9 Activity, unspecified; Y92.9 Unspecified place or not applicable; Y99.9 Unspecified external cause status
CPT/HCPCS: 29515; 36415; 80053; 84702; 85025; 85652; 86140; 99283; 99284

== ENCOUNTER 2024-07-04 12:25 | Outpatient (AMB) | payer OTHER, SELFPAY ==
--- OUTSIDE RECORDS SUMMARY | 2024-07-04 12:48 | XMS_ITS | Clinical Summary ---
[facility] Organization [facility] Address [address] [place] [address] Care Team Providers Care Iron Pourer Name Role Phone Magnus Hampton MD Primary [...] age to complete this topic Care Teams Iron Pourer Relationship Specialty Start Date End Date Magnus Hampton MD [address] [place] [address] Dr Kumar [facility] SAAD Maguier PCP - General 03/16/22
--- NOTE | 2024-07-04 12:53 | A.OFFVIS_ITS ---
Intake Visit Reasons: PO- LT ankle ORIF, DOS 06/14/24 NE-wound check Intake Note: Nedra is a 29 year old female who presents today post-operatively status post left lateral malleolus ORIF on 06/14/[address] Copeland. Patient was seen 07/01/24 were she was placed on a short-leg cast with a window for wound check. Patient presented to [facility] ED on 07/03/24 complaining of increased redness, itching around the area, and drainage from the incision. Patient's cast was removed and she was placed on a splint. Patient reports today she has started antibiotics given at the ED. She has also kept her leg elevated as much as possible. Splint removed in office today. Allergies amoxicillin [AMOXICILLIN] Allergy (Severe, Verified 07/04/24 12:58) anaphylaxis,rash omalizumab [From XOLAIR] Allergy (Severe, Verified 07/04/24 12:58) HIVES AND THROAT CLOSING Penicillins [PENICILLINS] Allergy (Severe, Verified 07/04/24 12:58) Anaphylaxis seafood Allergy (Severe, Verified 07/04/24 12:58) Anaphylaxis cetirizine [From ZYRTEC] Allergy (Intermediate, Verified 07/04/24 12:58) SHORTNESS OF BREATH vancomycin [VANCOMYCIN] Allergy (Intermediate, Verified 07/04/24 12:58) RASH, itching grass pollen Allergy (Mild, Verified 07/04/24 12:58) Hives animal dander Allergy (Unknown, Verified 07/04/24 12:58) HIVES loratadine [LORATADINE] Allergy (Unknown, Verified 07/04/24 12:58) THROAT SWELLING, hives HPI HPI PO- LT ankle ORIF, DOS 06/14/24 NE-wound check: Details: 29-year-old female returns to the office today status post ORIF left ankle on 06/14/[address] Copeland. She was last seen this past Thursday for ana out where she was placed in a cast with a window. Over the weekend she mentioned the leg became red and warm along with itching. She presented to the emergency department where the cast was removed and she was started on Bactrim and referred to our office. She states she was placed in a splint in the emergency department which cause discomfort. While in the office today she feels the incision area looks better. 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 No erythema. Mild swelling. Pulses present. Sensation intact. Assessment & Plan Assessment & Plan (1) Ankle fracture, left: Code(s): S82.892A - Other fracture of left lower leg, initial encounter for closed fracture Category: Medical Qualifiers: Encounter type: subsequent encounter Fracture healing: with routine healing Fracture type: closed Qualified Code(s): S82.892D - Other fracture of left lower leg, subsequent encounter for closed fracture with routine healing Plan: Her incision appears to be doing a lot better today compared to previous images I saw her in the emergency department. She will continue to take the Bactrim. It is likely she had some superficial skin irritation which is resolving. No evidence of deep infection. She was placed back in a short-leg cast with a window and I will see her back on Thursday for repeat wound check. Coding Level of Care Code Global (30356) Diagnoses Ankle fracture, left S82.892D Encounter type: subsequent encounter Fracture healing: with routine healing Fracture type: closed
== END 2024-07-04 13:36 | disposition home or self-care (01) ==
LOC: HO.HOS 12:26
PROVIDERS: PCP Family Medicine; Visit Provider Physician Assistant
DX: S82.892D Other fracture of left lower leg, subsequent encounter for closed fracture with routine healing (principal)
CPT/HCPCS: 99024

== ENCOUNTER → 2024-07-04 12:25 | Outpatient (BNVA) | payer OTHER, SELFPAY | PROVIDERS: PCP Family Medicine; Visit Provider Physician Assistant | DX: S82.892D Other fracture of left lower leg, subsequent encounter for closed fracture with routine healing (principal) | CPT/HCPCS: 99212 ==

== ENCOUNTER 2024-07-08 14:00 | Outpatient (AMB) | payer OTHER, SELFPAY ==
[2024-07-08 14:02] VITALS: BMI 30.6
--- NOTE | 2024-07-08 14:02 | MHC.OFFVIS ---
Vital Signs 07/08/24 14:02 Height 5 ft 4 in Weight 178 lb BMI 30.6 Intake Visit Reasons: PO- LT ankle ORIF, DOS 06/14/24 NE Intake Note: Nedra is a 29 year old female who presents to the office today for a post operative wound check status post LT ankle ORIF, DOS 06/14/24 NE. Patient reports she is doing well and wound looks a lot better. She has concerns of her irritation in her cast at the top of the cast. Allergies amoxicillin [AMOXICILLIN] Allergy (Severe, Verified 07/08/24 14:08) anaphylaxis,rash omalizumab [From XOLAIR] Allergy (Severe, Verified 07/08/24 14:08) HIVES AND THROAT CLOSING Penicillins [PENICILLINS] Allergy (Severe, Verified 07/08/24 14:08) Anaphylaxis seafood Allergy (Severe, Verified 07/08/24 14:08) Anaphylaxis cetirizine [From ZYRTEC] Allergy (Intermediate, Verified 07/08/24 14:08) SHORTNESS OF BREATH vancomycin [VANCOMYCIN] Allergy (Intermediate, Verified 07/08/24 14:08) RASH, itching grass pollen Allergy (Mild, Verified 07/08/24 14:08) Hives animal dander Allergy (Unknown, Verified 07/08/24 14:08) HIVES loratadine [LORATADINE] Allergy (Unknown, Verified 07/08/24 14:08) THROAT SWELLING, hives HPI HPI PO- LT ankle ORIF, DOS 06/14/24 NE: Details: 29-year-old female returns to the office today for a wound check status post left ankle ORIF 06/14/[address] Copeland. She has 1 more day left of her antibiotics and overall she feels as though the incision is doing well. No concerns today. 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 No erythema. Mild swelling. Pulses present. Sensation intact. Assessment & Plan Assessment & Plan (1) Ankle fracture, left: Code(s): S82.892A - Other fracture of left lower leg, initial encounter for closed fracture Category: Medical Qualifiers: Encounter type: subsequent encounter Fracture healing: with routine healing Fracture type: closed Qualified Code(s): S82.892D - Other fracture of left lower leg, subsequent encounter for closed fracture with routine healing Plan: Incision is clean dry and intact. She will complete her antibiotics. Continue nonweightbearing. She will see me back in 1 week for another wound check, sooner if needed. Coding Level of Care Code Global (41496) Diagnoses Ankle fracture, left S82.892D Encounter type: subsequent encounter Fracture healing: with routine healing Fracture type: closed
--- OUTSIDE RECORDS SUMMARY | 2024-07-08 14:02 | XMS_ITS | Clinical Summary ---
[facility] Organization [facility] Address [address] [place] [address] Care Team Providers Care Network Contractor Name Role Phone Magnus Hampton MD Primary [...] age to complete this topic Care Teams Network Contractor Relationship Specialty Start Date End Date Magnus Hampton MD [address] [place] [address] Dr Kumar [facility] SAAD Maguire PCP - General 03/16/22
== END 2024-07-08 14:42 | disposition home or self-care (01) ==
LOC: HO.HOS 14:00
PROVIDERS: PCP Family Medicine; Visit Provider Physician Assistant
DX: S82.892D Other fracture of left lower leg, subsequent encounter for closed fracture with routine healing (principal)
CPT/HCPCS: 99024

== ENCOUNTER → 2024-07-08 14:00 | Outpatient (BNVA) | payer OTHER, SELFPAY | PROVIDERS: PCP Family Medicine; Visit Provider Physician Assistant | DX: S82.892D Other fracture of left lower leg, subsequent encounter for closed fracture with routine healing (principal) | CPT/HCPCS: 99212 ==

== ENCOUNTER 2024-07-15 09:35 | Outpatient (AMB) | payer OTHER, SELFPAY ==
--- NOTE | 2024-07-15 09:36 | A.OFFVIS_ITS ---
Vital Signs 07/15/24 09:44 Height 5 ft 4 in Weight 178 lb BMI 30.6 Intake Visit Reasons: PO- LT ankle ORIF, DOS 06/14/24 NE Intake Note: Nedra is a 29 year old female who presents to the office today for a post operative wound check status post LT ankle ORIF, DOS 06/14/24 NE. Patient reports Thursday she has blood on her dressing, and on Thursday her wound became red and was draining blood. States today is better. Allergies amoxicillin [AMOXICILLIN] Allergy (Severe, Verified 07/15/24 09:42) anaphylaxis,rash omalizumab [From XOLAIR] Allergy (Severe, Verified 07/15/24 09:42) HIVES AND THROAT CLOSING Penicillins [PENICILLINS] Allergy (Severe, Verified 07/15/24 09:42) Anaphylaxis seafood Allergy (Severe, Verified 07/15/24 09:42) Anaphylaxis cetirizine [From ZYRTEC] Allergy (Intermediate, Verified 07/15/24 09:42) SHORTNESS OF BREATH vancomycin [VANCOMYCIN] Allergy (Intermediate, Verified 07/15/24 09:42) RASH, itching grass pollen Allergy (Mild, Verified 07/15/24 09:42) Hives animal dander Allergy (Unknown, Verified 07/15/24 09:42) HIVES loratadine [LORATADINE] Allergy (Unknown, Verified 07/15/24 09:42) THROAT SWELLING, hives HPI HPI PO- LT ankle ORIF, DOS 06/14/24 NE: Details: 29 yo female returns to the office today for follow-up left ankle ORIF 06/14/2024. She returns for a wound check. She states there are moments during the week where she has some swelling and bleeding But the incision does not open up . The incision does tend to dry out. She is able to elevate throughout the day at work. 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 No erythema. Mild swelling. Pulses present. Sensation intact. Assessment & Plan Assessment & Plan (1) Ankle fracture, left: Code(s): S82.892A - Other fracture of left lower leg, initial encounter for closed fracture Category: Medical Qualifiers: Encounter type: subsequent encounter Fracture healing: with routine healing Fracture type: closed Qualified Code(s): S82.892D - Other fracture of left lower leg, subsequent encounter for closed fracture with routine healing Plan: I stressed the importance of elevation and being cautious to not over do her activity as this can cause swelling in the lower extremity which can lead to the bleeding. We want to try to avoid wound complications as much as possible. She does express understanding. I did offer her to remain out of work until this is completely healed but she declined. We will continue with the cast nonweightbearing with the window so she can monitor the wound. She will see me back in 2 weeks at that point she will be 6 weeks postop and we will have cast off and x-rays. Coding Level of Care Code Global (17951) Diagnoses Ankle fracture, left S82.892D Encounter type: subsequent encounter Fracture healing: with routine healing Fracture type: closed
[2024-07-15 09:44] VITALS: BMI 30.6
--- OUTSIDE RECORDS SUMMARY | 2024-07-15 09:56 | XMS_ITS | Clinical Summary ---
Author Organization [facility] ity Address [address] [place] [address] Care Team Providers Care Imaging Specialist Name Role Phone Magnus Hampton MD [...] age to complete this topic Care Teams Imaging Specialist Relationship Specialty Start Date End Date Magnus Hampton MD [address] [place] [address] Dr Kumar [facility] SAAD Maguire PCP - General 03/16/22
== END 2024-07-15 10:06 | disposition home or self-care (01) ==
LOC: HO.HOS 09:36
PROVIDERS: PCP Family Medicine; Visit Provider Physician Assistant
DX: S82.892D Other fracture of left lower leg, subsequent encounter for closed fracture with routine healing (principal)
CPT/HCPCS: 99024

== ENCOUNTER → 2024-07-15 09:35 | Outpatient (BNVA) | payer OTHER, SELFPAY | PROVIDERS: PCP Family Medicine; Visit Provider Physician Assistant | DX: Z09 Encounter for follow-up examination after completed treatment for conditions other than malignant neoplasm (principal); S82.892D Other fracture of left lower leg, subsequent encounter for closed fracture with routine healing; X58.XXXD Exposure to other specified factors, subsequent encounter | CPT/HCPCS: 99212 ==

== ENCOUNTER 2024-07-26 13:28 | Outpatient (REF) | payer OTHER, SELFPAY ==
--- NOTE | ~2024-07-26 | XR_ITS ---
EXAMINATION: XR ANKLE, LEFT CLINICAL INFORMATION: M25.572 - Pain in left ankle and joints of left foot follow-up post-ORIF COMPARISON: June 27, 2024 TECHNIQUE: AP, lateral, and mortise views of the left ankle. FINDINGS: Since the prior examination, skin ana overlying the lateral malleolus have been removed. Lateral plate and screws remain in place over the distal fibula. There is also an cortical screw placed from a posterior approach into fibula at the level of the syndesmosis. No persistent fracture line is visible. Ankle mortise is congruent. There is no widening of the syndesmosis. The talar dome is intact. No other abnormalities are evident. XR/XR ankle LT min 3V IMPRESSION: Post ORIF distal left fibula Electronically signed by: Spencer Cooper MD 07/26/2024 06:51 PM EDT
--- OUTSIDE RECORDS SUMMARY | 2024-07-26 15:55 | XMS_ITS | Clinical Summary ---
Author Organization [facility] Address [address] [place] [address] Care Team Providers Care Machine Bander And Cellophaner Helper Name Role Phone Magnus Hampton MD Primary [...] age to complete this topic Care Teams Machine Bander And Cellophaner Helper Relationship Specialty Start Date End Date Magnus Hampton MD [address] [place] [address] Dr Kumar [facility] SAAD Maguire PCP - General 03/16/22
== END 2024-07-26 13:29 | disposition home or self-care (01) ==
LOC: HO.HOSX 13:28
PROVIDERS: Visit Provider Physician Assistant
DX: M25.572 Pain in left ankle and joints of left foot (principal); S82.892D Other fracture of left lower leg, subsequent encounter for closed fracture with routine healing
CPT/HCPCS: 73610; 99212

== ENCOUNTER → 2024-07-26 13:30 | Outpatient (BNV) | payer OTHER, SELFPAY | PROVIDERS: Visit Provider Radiology Diagnostic Radiology | DX: M25.572 Pain in left ankle and joints of left foot (principal) | CPT/HCPCS: 73610 ==

== ENCOUNTER 2024-07-26 13:40 | Outpatient (AMB) | payer OTHER, SELFPAY ==
--- NOTE | 2024-07-26 13:44 | MHC.OFFVIS ---
Vital Signs 07/26/24 13:57 Height 5 ft 4 in Weight 178 lb BMI 30.6 Intake Visit Reasons: PO- f/u left ankle orif - cast change Intake Note: Nedra is a 29 year old female who presents to the office today for a cast change status post LT ankle ORIF, DOS 06/14/24 NE. Patient reports that her cast was very itchy making it difficult to sleep at night. States ongoing intermittent swelling. Allergies amoxicillin [AMOXICILLIN] Allergy (Severe, Verified 07/26/24 13:56) anaphylaxis,rash omalizumab [From XOLAIR] Allergy (Severe, Verified 07/26/24 13:56) HIVES AND THROAT CLOSING Penicillins [PENICILLINS] Allergy (Severe, Verified 07/26/24 13:56) Anaphylaxis seafood Allergy (Severe, Verified 07/26/24 13:56) Anaphylaxis cetirizine [From ZYRTEC] Allergy (Intermediate, Verified 07/26/24 13:56) SHORTNESS OF BREATH vancomycin [VANCOMYCIN] Allergy (Intermediate, Verified 07/26/24 13:56) RASH, itching grass pollen Allergy (Mild, Verified 07/26/24 13:56) Hives animal dander Allergy (Unknown, Verified 07/26/24 13:56) HIVES loratadine [LORATADINE] Allergy (Unknown, Verified 07/26/24 13:56) THROAT SWELLING, hives HPI HPI PO- f/u left ankle orif - cast change: Details: 29 yo female presents to the office today f/u ORIF left ankle date of surgery 06/14/24. She comes in today because her cast has been uncomfortable. 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 She has scant amount of swelling over the ankle. Significant weakness with plantar and dorsiflexion. Neurovascularly intact. Results Reviewed Results Reviewed: X-rays of the left ankle obtained in the office today and reviewed by me show intact orthopedic hardware with ankle mortise intact. Fracture healing. Assessment & Plan Assessment & Plan (1) Ankle fracture, left: Code(s): S82.892A - Other fracture of left lower leg, initial encounter for closed fracture Category: Medical Qualifiers: Encounter type: subsequent encounter Fracture healing: with routine healing Fracture type: closed Qualified Code(s): S82.892D - Other fracture of left lower leg, subsequent encounter for closed fracture with routine healing Plan: At this time she can discontinue the cast and we will transition her to a tall walking boot which she was fit for today in the office. She will weightbear as tolerated in the boot at all times. She can remove the boot for hygiene and exercises. She was also given a lace-up ankle brace to transition to over the next 6 weeks with physical therapy. A physical therapy order was also placed today for range of motion gentle strengthening proprioceptive training. She will see me back in 6 weeks with x-rays, sooner if needed. Orders: Orders XR ankle LT min 3V Today M25.572 - Pain in left ankle and joints of left foot Coding Level of Care Code Global (22122) Diagnoses Ankle fracture, left S82.892D Encounter type: subsequent encounter Fracture healing: with routine healing Fracture type: closed
[2024-07-26 13:57] VITALS: BMI 30.6
== END 2024-07-26 14:40 | disposition home or self-care (01) ==
LOC: HO.HOS 13:40
PROVIDERS: Absent Provider Physician Assistant; PCP Family Medicine; Visit Provider Physician Assistant
DX: S82.892D Other fracture of left lower leg, subsequent encounter for closed fracture with routine healing (principal)
CPT/HCPCS: 99024

== ENCOUNTER 2024-09-07 11:32 | Outpatient (REF) | payer OTHER, SELFPAY ==
--- NOTE | ~2024-09-07 | XR_ITS ---
EXAMINATION: XR ANKLE 3 OR MORE VIEWS LEFT HISTORY: M25.572 - Pain in left ankle and joints of left foot COMPARISON: Comparison is made with the prior examination dated 07/26/2024. FINDINGS: Three views of the left ankle are submitted. There is periarticular osteopenia. The patient is again noted to be status post internal fixation of a fracture of the distal fibula with a sideplate and multiple orthopedic screws. The fracture line is not well visualized. The joint spaces are preserved. There is diffuse mild soft tissue swelling. XR/XR ankle LT min 3V IMPRESSION: Internal fixation of the previously seen oblique fracture of the distal fibula. Electronically signed by: Delvis Rivera MD 09/07/2024 01:43 PM EDT
--- OUTSIDE RECORDS SUMMARY | 2024-09-08 12:25 | XMS_ITS | Clinical Summary ---
Author Organization [facility] ity Address [address] [place] [address] Care Team Providers Care Solar Sales Assessor Name Role Phone Magnus Hampton MD Primary [...] of 3 - 19+ 3-dose series) 01/09/2016 Cervical Cancer Screening: P ap Smear 2018 HIV Screening 03/22/2023 Hepatitis C Screening 03/22/2023 Social Influencers of Health Screening 03/22/2023 COVID-19 Vaccine (1 - 2023-2 5 season) 2023 Depression Screening 02/17/2024 Influenza Vaccine (#1) 2024 HIB Vaccines Aged Out No longer [...] on patient's age to complete this topic Pneumococcal Vaccine: Pediat rics (0 to 5 Years) and At-Risk Patients (6 to 49 Years) Aged Out No longer eligible b ased on patient's age to complete this topic RSV Immunization Patients Un roman 20 months Aged Out No longer eligible b ased on patient's age to complete this topic Varicella Vaccines Aged Out No longer eligible based on patient's age to complete this topic Care Teams Solar Sales Assessor Relationship Specialty Start Date End Date Magnus Hampton MD [address] [place] [address] Dr Salud MA PCP - General 03/16/22
--- OUTSIDE RECORDS SUMMARY | 2024-09-08 12:25 | XMS_ITS | Clinical Summary ---
Author Organization [facility] Address [address] [place] [id number] Phone Care Team Providers Care Head Piece Assembler Name Role Phone Magnus Hampton MD Primary Care Provider Social History Tobacco Use Types Packs/Day Years Used Date Smoking Tobacco: Never Assessed Education Answer Date Recorded Are you interested in more education? Not on gary e 06/13/2022 Are you concerned about learning? Not on file 06/13/2022 No 06/13/2022 No 06/13/2022 Digital Access Answer Date Recorded No 07/12/2022 No 07/12/2022 No 07/12/2022 Reliable internet access at home? Not on file 07/12/2022 Device with a working camera? Not on file Comments Unknown Sex and Gender Information Value Date Recorded Sex Assigned at Not on file Legal Sex Female 2:56 PM EST Gender Identity Not on file Sexual Orientation Not on file Plan of Treatment Health Maintenance Due Date Last Done Comments DEPRESSION SCREENING 2009 SMOKING Hx and SMOKELESS TOBACCO SCREENING 2010 HEPATITIS C SCREENING 2015 HIV ONE-TIME SCREENING (18-65 YEARS) 2015 PAP SMEAR 2018 COVID-19 VACCINE ( season) 2023 Adult Td,Tdap Booster 07/20/2030 07/20/2020 , 08/25/2017, 05/09/2016, Additional history exists HIB VACCINES Completed 05/05/1998, 07/17, 1997, Additional history exists MENINGOCOCCAL VACCINES (ACWY) Completed 12/07/2013, 05/17/2008 PNEUMOCOCCAL VACCINES (0-49 years) Aged Out 10/19/2017 No longer eligible based on patient's age to complete this topic HEPATITIS A VACCINES Aged Out No long er eligible based on patient's age to complete this topic MENINGOCOCCAL VACCINES (B) Aged Out N o longer eligible based on patient's age to complete this topic Medical Devices Not on file Insurance [facility] NON NSPG PCP [employer] NET PARTIAL [facility] NON NSPG PCP S[employer] NET PARTIAL NON NSPG PCP SILVER CLARITY CONNECTORCARE GeoOP [facility] NET PARTIAL [facility] SILVER CLARITY CONNECTORCARE [employer] NET PARTIAL [facility] NON NSPG PCP SILVER CLARITY CONNECTORCARE GeoOP [facility] NET PARTIAL [facility] NON NSPG PCP SILVER CLARITY CONNECTORCARE GeoOP [employer] NET PARTIAL [employer] NON NSPG PCP SILVER CLARITY CONNECTORCARE GeoOP [employer] NET PARTIAL [employer] NON NSPG PCP S[employer] GeoOP [employer] NET PARTIAL [employer] NON NSPG PCP [employer] Member Subscriber Plan / Payer (Ef fective 2019-Present) Name:Nedra Cardona Relation to Subscriber:Self Name:Nedra Cardona Payer ID:[id number] Type:HMO Address: [address] SAFETY NET PARTIAL Care Teams Head Piece Assembler Relationship Specialty Start Date End Date Magnus Hampton MD [address] [place] [address] PCP - General 03/29/19 Additional Source Comments The information contained in this document represents components of the legal health record. It is not the complete legal health record.[facility]
== END 2024-09-07 11:33 | disposition home or self-care (01) ==
LOC: HO.HOSX 11:32
PROVIDERS: Visit Provider Physician Assistant
DX: Z47.89 Encounter for other orthopedic aftercare (principal); S82.892D Other fracture of left lower leg, subsequent encounter for closed fracture with routine healing; M25.472 Effusion, left ankle; Z96.662 Presence of left artificial ankle joint; M25.572 Pain in left ankle and joints of left foot
CPT/HCPCS: 73610

== ENCOUNTER 2024-09-07 13:21 | Outpatient (AMB) | payer OTHER, SELFPAY ==
--- NOTE | 2024-09-07 13:29 | MHC.OFFVIS ---
Vital Signs 09/07/24 13:33 Height 5 ft 4 in Weight 178 lb BMI 30.6 Intake Visit Reasons: PO- f/u left ankle orif follow up Intake Note: Nedra is a 29 year old female who presents today for a post operative visit of left ankle ORIF, DOS 06/14/24 NE. At her last visit she was placed in a walking boot, an ankle brace was given so that she is able to transition into the brace over the next 6 weeks. She was instructed to attend physical therapy and follow up in 6 weeks with x-rays. Patient reports ongoing pain and swelling. She has been attending physical therapy, electro therapy was performed at the lateral side of foot. While attending therapy they attempted to transition into ankle brace however this increased her pain. Allergies amoxicillin (AMOXICILLIN) Allergy (Severe, Verified 09/07/24 13:30) anaphylaxis,rash omalizumab (From XOLAIR) Allergy (Severe, Verified 09/07/24 13:30) HIVES AND THROAT CLOSING Penicillins (PENICILLINS) Allergy (Severe, Verified 09/07/24 13:30) Anaphylaxis seafood Allergy (Severe, Verified 09/07/24 13:30) Anaphylaxis cetirizine (From ZYRTEC) Allergy (Intermediate, Verified 09/07/24 13:30) SHORTNESS OF BREATH vancomycin (VANCOMYCIN) Allergy (Intermediate, Verified 09/07/24 13:30) RASH, itching grass pollen Allergy (Mild, Verified 09/07/24 13:30) Hives animal dander Allergy (Unknown, Verified 09/07/24 13:30) HIVES loratadine (LORATADINE) Allergy (Unknown, Verified 09/07/24 13:30) THROAT SWELLING, hives HPI HPI PO- f/u left ankle orif follow up: Details: 29-year-old female returns to the office today for a follow-up left ankle ORIF with Dr. Copeland on 06/14/2024. The patient states she has been working with physical therapy but it has been difficult to wean out of the boot because of medial-sided pain. She also experiences decreased sensation in the left lower extremity. 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 She has decreased motion and strength with plantar flexion and dorsiflexion. Decreased sensation along the lateral aspect of the ankle when compared to contralateral side. Pulses are intact. Results Reviewed Results Reviewed: X-rays of the left ankle obtained in the office today and reviewed by me show intact orthopedic hardware with ankle mortise intact. Assessment & Plan Assessment & Plan (1) Ankle fracture, left: Code(s): S82.892A - Other fracture of left lower leg, initial encounter for closed fracture Category: Medical Qualifiers: Encounter type: subsequent encounter Fracture healing: with routine healing Fracture type: closed Qualified Code(s): S82.892D - Other fracture of left lower leg, subsequent encounter for closed fracture with routine healing Plan: I encouraged the patient to use the boot when she is out of the house and she can use the lace-up brace while in the house since it is a controlled environment. I do recommend she continue working with therapy for a stem, range of motion stretching and strengthening exercises. I feel like most of her discomfort along the medial aspect of the ankle is due to over compensation as the lateral side is weaker. I would like to see her back in 8 weeks for a follow up, sooner if needed. Orders: Orders XR ankle LT min 3V Today M25.572 - Pain in left ankle and joints of left foot Coding Level of Care Code Est Pt Level 3 (77665) Complex EM visit Add On G2211 Diagnoses Ankle fracture, left S82.892D Encounter type: subsequent encounter Fracture healing: with routine healing Fracture type: closed
[2024-09-07 13:33] VITALS: BMI 30.6
== END 2024-09-07 13:51 | disposition home or self-care (01) ==
LOC: HO.HOS 13:22
PROVIDERS: PCP Family Medicine; Visit Provider Physician Assistant
DX: S82.892D Other fracture of left lower leg, subsequent encounter for closed fracture with routine healing (principal)
CPT/HCPCS: 99024

== ENCOUNTER → 2024-09-07 13:23 | Outpatient (BNV) | payer OTHER, SELFPAY | PROVIDERS: Visit Provider Radiology Diagnostic Radiology | DX: M85.872 Other specified disorders of bone density and structure, left ankle and foot (principal) | CPT/HCPCS: 73610 ==

== ENCOUNTER 2024-09-09 06:53 | Outpatient (RCR) | payer OTHER, SELFPAY ==
--- NOTE | 2024-08-12 16:07 | MHC.PT.EP ---
[facility] [place] [facility] [place] [facility] [place] [facility] [address] Monik Delacruz [address] [phone] F: [phone] F: [phone] F: [phone] F: [phone] Physical Therapy Plan of Care Date of Evaluation: 08/11/24 Date of Surgery: Diagnosis: L ankle distal fibula ORIF. 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 Pt is deemed an appropriate candidate to receive skilled PT services to address their physical impairments in order to improve their functional ability. Frequency and Duration: The patient will be seen 2 x/ wk x 6 wks. Short Term Goals: Initiate home program. Improve baseline pain to < 6/10; initial: 8/10 Assisted Goals: I with home program. Pt will improve LEFI outcome by at least 9 points. Pt will be able to negotiate stairs reciprocally; initial: 2 feet to one step. Pt will be able to walk 2 blocks without difficulty. Treatment Plan: Modalities to reduce pain, spasms and effusion. Manual therapy to restore motion and function. Therapeutic exercise to improve strength and flexibility. Neuromuscular re-education for posture and balance. Therapeutic activities to return to functional activities of daily living. Electronically signed by: Virgilio Myrick PT Please sign and return to therapist. Thank you for your referral.
--- NOTE | 2024-10-03 06:50 | MHC.PT.DC ---
[facility] [place] Office [place] Office [place] Office [address] Monik Delacruz [address] [phone] F: [phone] F: [phone] F: [phone] F: [phone] Physical Therapy Discharge Report Diagnosis: L ankle distal fibula ORIF. 06/14/24 Date of Surgery: 06/14/24 Date of Evaluation: 08/11/24 Date of Discharge: 10/03/24 Treatments to Date: 8 Cancellations to Date: No Shows to Date: Discharge Status: Recommend MD Follow-up Discharge Summary: Pt DC d/t complications. MD aware. Electronically signed by: Virgilio Myrick PT Please sign and return to therapist. Thank you for your referral.
== END 2024-10-03 06:50 | disposition home or self-care (01) ==
LOC: HO.PT 06:53
PROVIDERS: PCP Family Medicine; Visit Provider Physician Assistant
DX: S82.892D Other fracture of left lower leg, subsequent encounter for closed fracture with routine healing (principal)
CPT/HCPCS: 97014; 97110; 97112; 97116; 97161

== ENCOUNTER 2024-09-10 06:09 | Emergency (ER) | payer OTHER, SELFPAY ==
--- NOTE | ~2024-09-10 | XR_ITS ---
CLINICAL HISTORY: pain 3 view left ankle Comparison: 06/02/2024 Findings: Bones intact. No dislocations. There are surgical hardware on the distal fibula. No significant loss of joint space, osteophytes, or erosions. No ankle effusion. No other radiopaque foreign body. IMPRESSION: 1. No acute findings. This document has been electronically signed by: Sunil Tavares MD on 09/10/2024 08:40:33
--- NOTE | ~2024-09-10 | XR_ITS ---
CLINICAL HISTORY: pain 3 view left foot Comparison: None provided Findings: Bones intact. No dislocations. Surgical hardware noted on the distal fibula. No significant arthritic change or erosions. No ankle effusion. No other radiopaque foreign body. IMPRESSION: 1. No acute findings. This document has been electronically signed by: Sunil Tavares MD on 09/10/2024 08:39:54
--- NOTE | ~2024-09-10 | US_ITS ---
CLINICAL HISTORY: swelling, post op Venous duplex ultrasound left lower extremity Comparison: CR - XR FOOT LT MIN 3V - 09/10/24 06:34 EDT CR - XR ANKLE LT MIN 3V - 09/10/24 06:33 EDT Findings: The visualized deep veins are fully compressible with normal Doppler color flow and spectral tracings. No popliteal cyst. Multiple left inguinal lymph nodes measure up to 2.5 x 1.2 x 1.8 cm in size. These all have a fatty hilum. IMPRESSION: 1. Negative for left lower extremity deep vein thrombosis. 2. Presumed reactive left inguinal lymph nodes. This document has been electronically signed by: Jose Guerrero MD on 09/10/2024 09:54:32
[2024-09-10 06:10] VITALS: BP 111/60; PULSE 89; RESP 19; TEMP 36.9; O2SAT 98; BMI 29.0
--- NOTE | 2024-09-10 07:00 | ED.EXTPRO ---
HPI - Extremity Problem General Chief complaint: Extremity Injury, Lower Stated complaint: left ankle pain Time Seen by Provider: 09/10/24 06:59 Source: patient and old records reviewed Mode of arrival: ambulatory Limitations: no limitations History of Present Illness ED Provider: JHON ROJAS Narrative: 29 yo female with PMH of L ankle ORIF 06/14/24 with our ortho team has been doing well until recently she has had more pain when she was switched to the walking boot. She is supposed to wear an ankle brace at night as well. Since then she has noted severe shooting pain. No change in tingling. She has warm foot. No redness or fevers. She has been doing PT as well. She notes she thinks it is the brace causing pain since it is the only new thing. 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 She has remote hx of DVT in . MD Complaint: extremity pain and joint pain Onset (ago): day(s) (few) Pain Consistency: constant Location: left and lower extremity Quality: stabbing Radiation: distal Relieving factors: nothing Exacerbating factors: weight bearing and palpation Associated symptoms: denies other symptoms Context: other Related Data Previous Rx's ?Medication ?Instructions ?Recorded albuterol sulfate 2.5 mg/3 mL 2.5 mg (3 mL) inhalation Q4-6H PRN 12/21/22 (0.083 %) solution for nebulization shortness of breath or wheezing #90 mL epinephrine 0.3 mg/0.3 mL 0.3 mg (0.3 mL) IM ONCE PRN 01/28/23 injection, auto-injector (EpiPen) anaphylaxis #2 ea Kneeling Scooter #1 ea 06/27/24 diazepam 2 mg tablet (Valium) 2 mg PO BID PRN muscle spasm #8 09/10/24 tabs Allergies Allergy/AdvReac Type Severity Reaction Status Date / Time amoxicillin (AMOXICILLIN) Allergy Severe anaphylaxis Verified 09/10/24 06:16 ,rash omalizumab (From XOLAIR) Allergy Severe HIVES AND Verified 09/10/24 06:16 THROAT CLOSING Penicillins (PENICILLINS) Allergy Severe Anaphylaxis Verified 09/10/24 06:16 seafood Allergy Severe Anaphylaxis Verified 09/10/24 06:16 cetirizine (From ZYRTEC) Allergy Intermediate SHORTNESS Verified 09/10/24 06:16 OF BREATH vancomycin (VANCOMYCIN) Allergy Intermediate RASH, Verified 09/10/24 06:16 itching grass pollen Allergy Mild Hives Verified 09/10/24 06:16 animal dander Allergy Unknown HIVES Verified 09/10/24 06:16 loratadine (LORATADINE) Allergy Unknown THROAT Verified 09/10/24 06:16 SWELLING, hives Review of Systems Review of Systems: Constitutional : No Fever, No Chills ENT/Mouth : No Ear Pain, No Hoarseness, No sore throat Eyes: No Eye Pain, No Swelling, No Redness, No Foreign Body Cardiovascular : No Chest Pain, No SOB Respiratory : No Cough, No Dyspnea Gastrointestinal : No Nausea, No Vomiting, No Diarrhea, No abdominal Pain Genitourinary : No Dysuria, No Hematuria Musculoskeletal : positive joint pain, No Myalgias, No Joint Swelling Skin : No Skin lacerations, No rash Neuro : No Weakness, No Numbness, No Loss of Consciousness, No Dizziness, No Headache All other systems reviewed and are negative [facility] Past Medical History Attestation statement: The following information was validated with the patient. Source: old records reviewed Medical History DVT (deep venous thrombosis) Tachycardia Asthma Surgical History H/O wisdom tooth extraction Family History Family History Father Stroke Diabetes Hypertension Paternal Grandmother Pacemaker Social History Social History Housing: Apartment Alcohol intake: current Alcohol intake frequency: holidays/special occasions only Patient Tobacco Use Status: Never used Tobacco Smoked in Last 30 Days: No e-Cigarette/Vaping Use: Never Used Use of substances other than those prescribed or required for medical reasons: No Advance Directives: No Advance Directives Information Provided: Yes Patient : No Current occupational status: employed 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 Oriented X3. No acute distress. Eyes: Pupils equal, round and reactive to light. ENT: Pharynx normal. Neck: Normal inspection. Neck supple. CVS: Normal heart rate and rhythm. Pulses normal. Respiratory: No respiratory distress. Breath sounds normal. Abdomen: Soft and nontender. Skin: Skin warm and dry. Normal skin color. Extremities: No lower extremity edema. L ankle pain with movements but compartments are soft and compressible, NV intact other than pain along anterior medial aspect of anterior ankle/lower bray Neuro: Oriented X 3. No motor deficit. No sensory deficit. CN2-12 intact Course Course Course Narrative: recheck no signs of infection Medications Administered Discontinued Medications Generic Name Dose Route Start Last Admin Trade Name Freq PRN Reason Stop Dose Admin Acetaminophen 975 mg 09/10/24 06:27 09/10/24 06:32 Acetaminophen 325 Mg Tablet PO 09/10/24 06:28 975 mg ONCE ONE Administration Diazepam 2 mg 09/10/24 07:07 09/10/24 07:14 Diazepam 2 Mg Tablet PO 09/10/24 07:08 2 mg ONCE ONE Administration Ketorolac Tromethamine 15 mg 09/10/24 06:27 09/10/24 06:33 Ketorolac Tromethamine 15 Mg/Ml Vial IM 09/10/24 06:28 15 mg ONCE ONE Administration Morphine Sulfate 15 mg 09/10/24 06:27 09/10/24 06:36 Morphine Sulfate Immed Release 15 Mg Tablet PO 09/10/24 06:28 Not Given ONCE ONE Medical Decision Making Medical Decision Making [facility] Narrative: 29 yo female with PMH of L ankle ORIF 06/14/24 here with worsening pain after using the boot and ankle brace clinically no signs of compartment syndrome, NV intact, normal pulses, no signs of infection - will obtain xrays, DVT study given prior DVT and offered PO muscle relaxer. Differential Diagnosis Differential Diagnoses: The differential diagnosis associated with the presentation includes spasm, DVT, strain, post op pain Admission/Observation Consideration of admission/observation: Escalation of care including admission/observation considered feels better stable for DC tendonitis Independent Interpretation I performed an independent interpretation of an: Plain X-Ray (normal) and Ultrasound (no DVT) Radiology Impression Discussion of test interpretation with radiology: I have reviewed the radiologist's reading. External Record Review External record reviewed: Inpatient record and Outpatient record Prescription Management I considered prescription management with: Other Discharge Plan Discharge Clinical Impression: Acute left ankle pain Patient Disposition: Home, Self-Care Instructions: Arthralgia (ED) Additional Instructions: xray shows normal hardware ultrasound no blood clot noted return for worsening pain, fevers, redness, swelling or any other concerns please call the orthopedic office Thursday to follow up Prescriptions: New diazepam [Valium] 2 mg tablet 2 mg PO BID PRN (Reason: muscle spasm) Qty: 8 0RF No Action albuterol sulfate 2.5 mg /3 mL (0.083 %) solution for nebulization 2.5 mg inhalation Q4-6H PRN (Reason: shortness of breath or wheezing) Qty: 90 0RF (DME) Kneeling Scooter See Rx Instructions .ROUTE .MEDSUPPLY Qty: 1 0RF Rx Instructions: As directed epinephrine [EpiPen] 0.3 mg/0.3 mL auto-injector 0.3 mg IM ONCE PRN (Reason: anaphylaxis) Qty: 2 0RF Rx Instructions: for 2 doses Print Language: Sami
--- OUTSIDE RECORDS SUMMARY | 2024-09-10 07:06 | XMS_ITS | Clinical Summary ---
Author Organization [facility] ity Address [address] [place] [address] Care Team Providers Care Advertising Space Clerk Name Role Phone Magnus Hampton MD Primary [...] age to complete this topic Care Teams Advertising Space Clerk Relationship Specialty Start Date End Date Magnus Hampton MD [address] [place] [address] Dr Salud [place] PCP - General 03/16/22
--- OUTSIDE RECORDS SUMMARY | 2024-09-10 07:06 | XMS_ITS | Clinical Summary ---
Author Organization [facility] Address [address] [place] [phone] Phone Care Team Providers Care Entertainment Director Name Role Phone Magnus Hampton MD Primary [...] topic Medical Devices Not on file Insurance [facility] NON NSPG PCP [employer] NET PARTIAL [facility] NON NSPG PCP S[employer] NET PARTIAL NON NSPG PCP S[employer] VARSITY MED[employer] GROUP [facility] NET PARTIAL [facility] S[employer] NET PARTIAL [facility] NON NSPG PCP [employer] VARSITY [employer] [facility] NET PARTIAL [facility] NON NSPG PCP S[employer] NET PARTIAL [employer] NON NSPG PCP S[employer] NET PARTIAL [employer] NON NSPG PCP S[employer] NET PARTIAL [employer] NON NSPG PCP [employer] Member Subscriber Plan / Payer (Ef fective 2019-Present) Name:Nedra Cardona Relation to Subscriber:Self Name:Nedra Cardona Payer ID:[id number] Type:HMO Address: [address] SAFETY NET PARTIAL Care Teams Entertainment Director Relationship Specialty Start Date End Date Magnus Hampton MD [address] [place] [address] PCP - General 03/29/19 Additional Source Comments The information contained in this document represents components of the legal health record. It is not the complete legal health record.[facility]
[2024-09-10 07:14] VITALS: BP 110/45; PULSE 70; RESP 16; TEMP 36.1; O2SAT 100
--- NOTE | 2024-09-10 07:16 | PC.NURSE ---
report taken from efe, patient currently a&ox3, vss, pt c/o 09/25 lle pain, + csm/pulses, pt aware we need a urine, pt medicated for pain, call [place] within reach, plan of care ongoing.
[2024-09-10 10:18] VITALS: BP 118/48; PULSE 73; RESP 16; TEMP 36.5
== END 2024-09-10 10:22 | disposition home or self-care (01) ==
PROVIDERS: Emergency Provider Emergency Medicine
DX: M25.572 Pain in left ankle and joints of left foot (principal); M79.89 Other specified soft tissue disorders
CPT/HCPCS: 73610; 73630; 93971; 96372; 99284; J1885

== ENCOUNTER → 2024-09-10 06:42 | Outpatient (BNV) | payer OTHER, SELFPAY | PROVIDERS: Emergency Provider Emergency Medicine; Visit Provider Specialist | DX: M25.572 Pain in left ankle and joints of left foot (principal); M79.672 Pain in left foot | CPT/HCPCS: 73610; 73630; 93971 ==

== ENCOUNTER 2024-09-11 13:30 | Inpatient (IN) | payer OTHER, SELFPAY ==
--- NOTE | ~2024-09-11 | CT_ITS ---
CLINICAL HISTORY: Ankle foot swollen erythema with drainage. abscess CT left ankle with contrast Comparison: 09/10/2024 Findings: Study is limited by metallic artifact related to hardware. There is a loculated appearing fluid collection associated with the ankle predominating anteriorly and laterally. This collection measures up to 4.5 x 3.0 x 1.5 cm in size. No associated gas. Prior open reduction internal fixation of the distal fibula. Appropriate alignment. No gross evidence of hardware failure. No fracture or dislocation. There is no neelam bony destruction or periostitis but there are numerous small lytic foci within the talus. Impression: 1. Loculated fluid collection within the ankle, suspicious for infection. 2. Numerous small lytic foci within the talus. This could be secondary to osteopenia or osteomyelitis. This document has been electronically signed by: Doris Grider MD on 09/11/2024 16:00:40
--- NOTE | ~2024-09-11 | IR_ITS ---
PROCEDURE: IR INSERTION OF PICC CLINICAL INFORMATION: Left foot hardware removed. Osteomyelitis left ankle. Needs long-term antibiotics. COMPARISON: None available. TECHNIQUE: Following explaining ultrasound and fluoroscopy-guided placement of right PICC catheter procedure, benefits and risk was obtained. Patient was placed supine on fluoroscopy table and preliminary ultrasound imaging was obtained the right arm. An optimal site was selected and marked on the skin. The marked site was cleaned and draped in usual sterile manner with 2% chlorhexidine solution. 1% lidocaine was injected at the marked site. Under sterile ultrasound guidance a singlewall needle was advanced from the skin and the right base ligamentous punctured. After obtaining venous return, a thin guidewire was advanced through the needle into the subclavian vein and needle withdrawn. A 5 Maltese below the sheath and dilator was advanced over the guidewire. The guidewire was removed and a precut single-lumen 5 Maltese PICC catheter 35 cm long was inserted through the peel-away sheath under fluoroscopy. The peel-away sheath was removed. The guidewire within this catheter was also removed. The catheter was flushed with heparinized saline. Simple dressing applied at puncture site. Patient tolerated procedure extremely well. There are no immediate complications. All elements of maximal sterile barrier technique followed including use of cap, mask, sterile gown, sterile gloves, a sterile full body drape and hand hygiene. Also followed skin preparation with 2% chlorhexidine for cutaneous antisepsis, and sterile ultrasound preparation with sterile gel and probe cover when applicable. FINDINGS: On preliminary ultrasound imaging there is widely patent basilic, cephalic and brachial veins. Approximately 35 cm long 5 Maltese single-lumen PICC catheter was inserted with its tip in proximal SVC ready for use. IR/IR cvc insert peripheral IMPRESSION: Successful ultrasound and fluoroscopy-guided placement of 5 Maltese 35 cm long PICC catheter with its tip in proximal SVC. The catheter is ready for use. Fluoroscopy time: 0.1 minute. Dose: 53 mGy/cm. Electronically signed by: Gurwinder Rosado MD 09/16/2024 12:57 PM EDT
[2024-09-11 13:36] VITALS: BP 117/69; PULSE 132; RESP 16; TEMP 37.3; O2SAT 100; BMI 28.5
--- NOTE | 2024-09-11 13:47 | ED.GENADULT ---
HPI - General Adult General Chief complaint: Extremity Problem Stated complaint: left ankle swollen Time Seen by Provider: 09/11/24 13:46 Source: patient Mode of arrival: ambulatory History of Present Illness ED Provider: Angel Zaldivar [facility] narrative: 29 yold female presents to the ED for left ankle pain and swelling with oozing and redness. patient had ankle surgery in may with hardware. Patient states unable to bear weight. Related Data Home Medications ?Medication ?Instructions ?Recorded ?Confirmed albuterol sulfate 90 mcg/actuation 1 inh inhalation QID PRN wheezing 09/11/24 09/11/24 aerosol inhaler (Ventolin HFA) ibuprofen 200 mg tablet 200 mg PO Q6H PRN Pain 09/11/24 09/11/24 tramadol 50 mg tablet 50 mg PO BID PRN Pain 09/11/24 09/11/24 Previous Rx's ?Medication ?Instructions ?Recorded Kneeling Scooter #1 ea 06/27/24 diazepam 2 mg tablet (Valium) 2 mg PO BID PRN muscle spasm #8 09/10/24 tabs Allergies Allergy/AdvReac Type Severity Reaction Status Date / Time amoxicillin (AMOXICILLIN) Allergy Severe anaphylaxis Verified 09/11/24 13:40 ,rash omalizumab (From XOLAIR) Allergy Severe HIVES AND Verified 09/11/24 13:40 THROAT CLOSING Penicillins (PENICILLINS) Allergy Severe Anaphylaxis Verified 09/11/24 13:40 seafood Allergy Severe Anaphylaxis Verified 09/11/24 13:40 cetirizine (From ZYRTEC) Allergy Intermediate SHORTNESS Verified 09/11/24 13:40 OF BREATH vancomycin (VANCOMYCIN) Allergy Intermediate RASH, Verified 09/11/24 13:40 itching grass pollen Allergy Mild Hives Verified 09/11/24 13:40 animal dander Allergy Unknown HIVES Verified 09/11/24 13:40 loratadine (LORATADINE) Allergy Unknown THROAT Verified 09/11/24 13:40 SWELLING, hives Review of Systems Review of Systems: left ankle pain, swelling, redness, pus discharge Yes all other systems are reviewed and are negative PMF Past Medical History Medical History DVT (deep venous thrombosis) Tachycardia Asthma Surgical History H/O wisdom tooth extraction Family History Family History Father Stroke Diabetes Hypertension Paternal Grandmother Pacemaker Social History Social History Household Members: Children Housing: House Do you presently have visiting nurse or other home services: No Alcohol intake: current Alcohol intake frequency: holidays/special occasions only Patient Tobacco Use Status: Never used Tobacco Smoked in Last 30 Days: No e-Cigarette/Vaping Use: Never Used Use of substances other than those prescribed or required for medical reasons: No Have you been hit, kicked, punched, or otherwise hurt by someone within the past year? 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 Cognitive needs: No Hearing needs: No Vision needs: No Physical Exam ED Vital Signs: Vital Signs - 24 hr 09/11/24 13:36 09/11/24 16:37 Temperature 99.1 F 100.2 F Pulse Rate 132 H 121 H Respiratory Rate 16 20 Blood Pressure 117/69 124/77 Pulse Oximetry 100 100 Oxygen Delivery Method Room Air Room Air BMI result Body Mass Index 28.5 Const General: cooperative, healthy appearing, comfortable, no acute distress, well developed, alert, awake and Physically active Orientation/consciousness: patient oriented x3 HENMT Head: Yes normal to inspection, Yes No palpable skull fracture present, Yes normocephalic and Yes atraumatic Eyes General: appearance normal, both eyes and all related structures Neck Neck: Yes normal visual inspection, Yes full ROM, Yes no lymphadenopathy, Yes no meningeal signs, Yes trachea midline, Yes supple, No anterior neck swelling and No tender Chest Chest palpation & inspection: normal inspection of the chest and normal palpation of entire chest wall Resp Effort & Inspection: normal respiratory effort and able to speak in complete sentences Auscultation: clear to auscultation bilaterally Cardio Jugular venous distension: no JVD Heart sounds: S1 normal heart sound present and S2 normal heart sound present GI Inspection: Yes normal to inspection Palpation (GI): Soft to palpation, not firm, nontender, no guarding and not rigid General: Yes no CVA tenderness Back/Spine/Pelvis Back: no CVA tenderness and No back tenderness Skin General skin exam: no rashes or lesions noted, elasticity normal and turgor normal Neuro General: patient oriented x3, tone normal, moves all extremities, Normal light touch and pain sensation, no meningeal signs, no focal motor deficits and CN's II-XI intact bilaterally Extrem Ankle/foot/toe images:  1. positive for swelling, erythema, warmth, stiffness, with pus discharge. vascular and nuero exam is intact. motor exam limited due to infection and pain Psych Appearance: grossly normal, well kempt and not disheveled Medications Administered Generic Name Dose Route Start Last Admin Trade Name Freq PRN Reason Stop Dose Admin Docusate Sodium 100 mg 09/11/24 21:00 09/12/24 08:59 Docusate Sodium 100 Mg Capsule PO 100 mg BID FREEMAN Administration Hydromorphone HCl 0.25 mg 09/11/24 18:00 09/12/24 08:12 Hydromorphone Hcl 0.5 Mg/0.5 Ml Syringe IVPUSH 0.25 mg Q4H PRN Administration Pain, Severe (Pain Scale 7-10) Protocol Clindamycin Phosphate 900 mg in 50 mls @ 50 mls/hr 09/12/24 08:00 09/12/24 09:30 Cleocin IV Infused Q8H REPLACED BY [facility] Infusion Oxycodone HCl 10 mg 09/11/24 17:36 09/12/24 08:59 Oxycodone Hcl Er 10 Mg Tab.Er.12h PO 10 mg BID PRN Administration Pain, Severe (Pain Scale 7-10) Sodium Chloride 3 ml 09/12/24 00:00 09/12/24 08:14 0.9 % Sodium Chloride Flush 3 Ml Syringe IVFLUSH 3 ml QSHIFT REPLACED BY [facility] Administration Discontinued Medications Generic Name Dose Route Start Last Admin Trade Name Freq PRN Reason Stop Dose Admin Sodium Chloride 1,000 mls @ 999 mls/hr 09/11/24 13:49 09/11/24 19:00 Ns IV 09/11/24 14:49 Infused .Q1H1M STA Infusion Clindamycin Phosphate 600 mg in 50 mls @ 100 mls/hr 09/11/24 14:41 09/11/24 15:20 Cleocin IV 09/11/24 15:10 Infused ONCE ONE Infusion Sodium Chloride 1,000 mls @ 999 mls/hr 09/11/24 18:00 09/11/24 22:30 Ns IV 09/11/24 19:00 Infused .Q1H1M FREEMAN Infusion Acetaminophen 1,000 mg in 100 mls @ 400 mls/hr 09/11/24 18:00 09/12/24 12:52 Ofirmev IV 09/12/24 12:14 Infused Q6H FRE[facility]AN Infusion Iohexol 85 ml 09/11/24 15:12 09/11/24 15:12 Iohexol 350 Mg/Ml 100 Ml Infus..Btl IV 09/11/24 15:13 85 ml ONCE ONE Administration Morphine Sulfate 4 mg 09/11/24 15:12 09/11/24 15:29 Morphine Sulfate 4 Mg/Ml Cartridge IVPUSH 09/11/24 15:13 4 mg ONCE ONE Administration Protocol Morphine Sulfate 4 mg 09/11/24 16:39 09/11/24 18:02 Morphine Sulfate 4 Mg/Ml Cartridge IVPUSH 09/11/24 16:40 4 mg ONCE ONE Administration Protocol Procedures EJ/Peripheral Line Arm L: Time Out Performed: Yes Skin Cleansed in Sterile Fashion: Yes Size (gauge): 20 IV Secured and Dressing Applied: Yes Patient Tolerated Procedure: well and no complications Additional Comments: US guided Medical Decision Making Medical Decision Making MDM Narrative: 29 yold female presents to ED for left ankle pain and swelling. Patient was seen yesterday had normal x-ray and normal ultrasound. Patient had ankle repair due to a fracture in May addendum to past 2 days woke up with sudden left ankle swelling and pain. This morning has new redness and some drainage. Labs cat scan ordered. 2:56pm: Patient has a 20,000 with elevated CRP. Cat scan pending. Clindamycin ordered. Lactic acid negative 6:00PM; case was discussed with Dr. Gar of hospitalist and Jolanta Mathur physician operating room assistant for orthopedic surgery. Was recommended patient be admitted to orthopedic surgery service due to septic joint osteomyelitis and non controllable pain. Patient's ankle stiff not able to move. Antibiotics were given IV pain meds. CT scan shows fluid in ankle joint infected with osteomyelitits of foot. Differential Diagnosis Differential Diagnoses: The differential diagnosis associated with the presentation includes (septic joint, cellulitits, osteomytliitis, DVT) Admission/Observation Consideration of admission/observation: Escalation of care including admission/observation considered Consult Healthcare Provider Management of the patient was discussed with: Hospitalist (Dr. Gar) and Instrumentation Specialist ([facility]) Lab Data MDM Lab Attestation statement: I reviewed the patient's lab results. 09/11/24 14:08 09/12/24 07:58 Labs: Lab Results 09/11/24 Range/Units 14:08 WBC 20.9 H (4.8-10.8) X10*3/uL RBC 5.14 (4.20-5.50) X10*6/uL Hgb 11.4 L (12.0-16.0) g/dl Hct 35.9 L (37.0-47.0) % MCV 69.8 L (80.0-98.0) fL MCH 22.2 L (27.0-33.0) pg MCHC 31.8 (31.0-35.0) g/dl RDW 15.3 (11.0-16.0) % Plt Count 196 (160-400) X10*3/uL MPV Not Reportable Immature Gran % (Auto) 0.7 H (0.0-0.4) % Neut % (Auto) 88.2 H (45-73) % Lymph % (Auto) 4.3 L (20-40) % [place] % (Auto) 6.3 (2-11) % Eos % (Auto) 0.3 (0-4) % Baso % (Auto) 0.2 (0-2) % Lymph # (Auto) 0.9 L (1.2-4.9) X10*3/uL [place] # (Auto) 1.3 H (0.1-1.2) X10*3/uL Eos # (Auto) 0.1 (0.0-0.4) X10*3/uL Baso # (Auto) 0.0 (0.0-0.2) X10*3/uL Abs Immat Gran (auto) 0.14 H (0.00-0.03) X10*3/uL Absolute Neuts (auto) 18.5 H (2.0-8.3) x10*3/uL Absolute Nucleated RBC 0.000 (0.0-0.012) X10*3/uL Nucleated RBC % (auto) 0.0 (0.0-0.2) /100WBC ESR 40 H (0-20) MM/HR PT 17.9 H (10.9-12.4) SEC INR 1.6 H (0.9-1.1) APTT 35.4 (26.0-36.8) SEC Sodium 135 (135-145) mmol/L Potassium 4.0 (3.3-5.1) mmol/L Chloride 102 (96-108) mmol/L Carbon Dioxide 22 (22-29) mmol/L Anion Gap 15 (12-20) BUN 9 (9-16) mg/dL Creatinine 0.65 (0.5-1.4) mg/dL Estim Creat Clear Calc 129.1 Estimated GFR > 60 Random Glucose 95 (60-115) mg/dL Lactic Acid 1.2 (0.5-2.0) mmol/L Calcium 9.8 (8.4-10.2) mg/dL Total Bilirubin 0.9 (0.0-1.0) mg/dL AST 29 (5-31) U/L ALT 16 (0-31) U/L Alkaline Phosphatase 69 (39-117) U/L C-Reactive Protein 28.16 H (< or = 0.50) mg/dL Total Protein 8.2 H (6.5-8.0) g/dL Albumin 4.8 (3.5-5.0) g/dL Beta HCG, Quant < 2 mIU/mL Independent Interpretation I performed an independent interpretation of an: CT Scan Radiology Impression Discussion of test interpretation with radiology: I have reviewed the radiologist's reading. Independent Historian Clinical information obtained from an independent historian. History obtained from or confirmed by: Other (patient) Prescription Management I considered prescription management with: Pain Medication and Antibiotic Critical Care Time Critical Care Time Critical Care Time: Yes Total Critical Care Time: 60 Attestation: Ankle septic joint osteomyelitis. IV antibiotics IV pain meds ordered. Clindamycin Dilaudid morphine. Surgical consult Orthopedic Jolanta Kevan hospitalist consult Dr. Gar Discharge Plan Discharge Clinical Impression: Osteomyelitis of ankle Qualifiers: Laterality: left Patient Disposition: Admitted As Inpatient Interventions: Admission Worksheet (ED) Last Done: 09/11/24 18:37 Discharge Date/Time: 09/12/24 08:35
--- OUTSIDE RECORDS SUMMARY | 2024-09-11 13:47 | XMS_ITS | Clinical Summary ---
Author Organization [facility] Address [address] [place] [phone] Phone Care Team Providers Care Cruller Maker Machine Name Role Phone Magnus Hampton MD Primary [...] topic Medical Devices Not on file Insurance [facility] NON NSPG PCP [employer] NET PARTIAL [facility] NON NSPG PCP [employer] NET PARTIAL NON NSPG PCP S[employer] [facility] NET PARTIAL [facility] S[employer] NET PARTIAL [facility] NON NSPG PCP S[employer] [facility] NET PARTIAL [facility] NON NSPG PCP S[employer] [facility] [place] SAF[employer] NET PARTIAL [place] NON NSPG PCP S[employer] [facility] [place] [employer] NET PARTIAL [place] NON NSPG PCP S[employer] [facility] [place] [employer] NET PARTIAL [employer] NON NSPG PCP [employer] Member Subscriber Plan / Payer (Ef fective 2019-Present) Name:Nedra Cardona Relation to Subscriber:Self Name:Nedra Cardona Payer ID:[id number] Type:HMO Address: [address] SAFETY NET PARTIAL Care Teams Cruller Maker Machine Relationship Specialty Start Date End Date Magnus Hampton MD [address] [place] [address] PCP - General 03/29/19 Additional Source Comments The information contained in this document represents components of the legal health record. It is not the complete legal health record.[facility]
--- OUTSIDE RECORDS SUMMARY | 2024-09-11 13:47 | XMS_ITS | Clinical Summary ---
Author Organization [facility] ity Address [address] [place] [address] Care Team Providers Care Jockey'S Agent Name Role Phone Magnus Hampton MD Primary [...] age to complete this topic Care Teams Jockey'S Agent Relationship Specialty Start Date End Date Magnus Hampton MD [address] [place] [address] Dr Salud [place] PCP - General 03/16/22
[2024-09-11 14:21] LABS: MANUAL DIFF FLAG NO
[2024-09-11 14:41] LABS: Hematocrit 35.9 % (37.0-47.0); Hemoglobin 11.4 g/dl (12.0-16.0); INTERNATIONAL NORM RATIO 1.6 (0.9-1.1); Imm Gran Abs Auto 0.14 X10*3/uL (0.00-0.03); Imm Gran Pct Auto 0.7 % (0.0-0.4); Lymphocytes Absolute Auto 0.9 X10*3/uL (1.2-4.9); Mean Corpuscular HGB Conc 31.8 g/dl (31.0-35.0); Mean Corpuscular Hemoglobin 22.2 pg (27.0-33.0); Mean Corpuscular Volume 69.8 fL (80.0-98.0); NRBC Abs Auto 0.000 X10*3/uL (0.0-0.012); NRBC Pct Auto 0.0 /100WBC (0.0-0.2); Platelet Count 196 X10*3/uL (160-400); Prothrombin Time 17.9 SEC (10.9-12.4); Red Blood Count 5.14 X10*6/uL (4.20-5.50); White Blood Count 20.9 X10*3/uL (4.8-10.8)
[2024-09-11 14:43] LABS: Partial Thromboplastin Time 35.4 SEC (26.0-36.8)
[2024-09-11 14:45] LABS: Alanine Aminotransferase 16 U/L (0-31); Albumin Level 4.8 g/dL (3.5-5.0); Alkaline Phosphatase 69 U/L (39-117); Anion Gap 15 (12-20); Aspartate Amino Transferase 29 U/L (5-31); Blood Urea Nitrogen 9 mg/dL (9-16); Calcium 9.8 mg/dL (8.4-10.2); Carbon Dioxide 22 mmol/L (22-29); Chloride 102 mmol/L (96-108); Creatinine Clr Calc Pharmacy 129.1; Estimated Glomerular Filt Rate > 60; Potassium 4.0 mmol/L (3.3-5.1); Sodium 135 mmol/L (135-145); Total Protein 8.2 g/dL (6.5-8.0)
[2024-09-11] MEDS: iohexoL 350 MG/ML 100 ML INFUS..BTL 85 ML IV (15:12)
[2024-09-11 16:37] VITALS: BP 124/77; PULSE 121; RESP 20; TEMP 37.9; O2SAT 100
[2024-09-11 18:02] VITALS: RESP 16
--- NOTE | 2024-09-11 18:23 | PHA.MEDREC ---
Addendum entered by Liborio Ramsay [facility] 09/11/24 18:48: Med rec reviewed Original Note: Pharmacy Consult ? Medication Reconciliation Pharmacy has completed the medication reconciliation. Spoke with patient to confirm.
--- NOTE | 2024-09-11 20:30 | PC.NURSE ---
Assumed care of this Pt at 1900.
[2024-09-11 20:49] VITALS: BP 112/56; PULSE 122; RESP 18; TEMP 38.7; O2SAT 97
[2024-09-11 22:13] VITALS: BP 111/52; PULSE 109; RESP 16; TEMP 37.2; O2SAT 98
[2024-09-12] VITALS (9 sets, daily range): BP systolic 105–118; BP diastolic 55–68; PULSE 87–122; RESP 16–20; TEMP 36.9–39; O2SAT 96–100; BMI 28.4
[2024-09-12] MEDS: 0.9 % Sodium Chloride Flush 3 ML SYRINGE IVFLUSH ×4 (00:09→20:07)
[2024-09-12 07:17] LABS: Blood Urea Nitrogen 7 mg/dL (9-16); Calcium 8.9 mg/dL (8.4-10.2); Carbon Dioxide 23 mmol/L (22-29); Chloride 107 mmol/L (96-108); Creatinine Clr Calc Pharmacy 142.3; Estimated Glomerular Filt Rate > 60; Potassium 4.3 mmol/L (3.3-5.1); Sodium 137 mmol/L (135-145)
--- NOTE | 2024-09-12 08:23 | PC.NURSE ---
Pt's pain increased with movement; pt medicated per orders for pain; IV ABX infusing per orders; surgery consulted with pt this a.m.; pt can eat until midnight tonight
[2024-09-12] MEDS: oxyCODONE HCl ER 10 MG TAB.ER.12H PO ×2 (08:59→23:32)
--- NOTE | 2024-09-12 11:58 | HO.ANESPROP2 ---
HPI - Anesthesia Eval Consult details Narrative: 29 yr old female for left ankle removal of orthopedic hardware. No recent illness. No CP/SOB with limited activity. s/p L ankle ORIF 06/14/24 HCG neg 09/11/24 Asthma: Well controlled [facility] Active Problems Active Problems: All Active Problems Osteomyelitis of ankle (Acute) Renal stones (Acute) Vomiting (Acute) Constipation (Acute) Abdominal bloating (Acute) Abdominal pain (Acute) Environmental and seasonal allergies (Acute) Abnormal lung sounds (Acute) Breast pain, left (Acute) Immunization counseling (Acute) , delivered (Acute) Adult general medical exam (Acute) Dyspnea (Acute) state, incidental (Acute) Asthma (Acute) Tachycardia (Acute) Past Medical History Medical History DVT (deep venous thrombosis) Tachycardia Asthma Patient : No Family History Family History Father Stroke Diabetes Hypertension Paternal Grandmother Pacemaker Family history of problems with anesthesia: No Surgical History Surgical History H/O wisdom tooth extraction History of Problems with Anesthesia: No Social History Social History Household Members: Children Housing: House Do you presently have visiting nurse or other home services: No Alcohol intake: current Alcohol intake frequency: holidays/special occasions only Patient Tobacco Use Status: Never used Tobacco e-Cigarette/Vaping Use: Never Used service: No Current occupational status: employed 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 Cognitive needs: No Hearing needs: No Vision needs: No Meds Allergies Allergy/AdvReac Type Severity Reaction Status Date / Time amoxicillin (AMOXICILLIN) Allergy Severe anaphylaxis Verified 09/11/24 13:40 ,rash omalizumab (From XOLAIR) Allergy Severe HIVES AND Verified 09/11/24 13:40 THROAT CLOSING Penicillins (PENICILLINS) Allergy Severe Anaphylaxis Verified 09/11/24 13:40 seafood Allergy Severe Anaphylaxis Verified 09/11/24 13:40 cetirizine (From ZYRTEC) Allergy Intermediate SHORTNESS Verified 09/11/24 13:40 OF BREATH vancomycin (VANCOMYCIN) Allergy Intermediate RASH, Verified 09/11/24 13:40 itching grass pollen Allergy Mild Hives Verified 09/11/24 13:40 animal dander Allergy Unknown HIVES Verified 09/11/24 13:40 loratadine (LORATADINE) Allergy Unknown THROAT Verified 09/11/24 13:40 SWELLING, hives Active Medications: Current Medications Calcium Carbonate (Calcium Carbonate 750 Mg Tab.Chew) 750 mg PO Q4H PRN PRN Reason: Heartburn Docusate Sodium (Docusate Sodium 100 Mg Capsule) 100 mg PO BID [facility] Last Admin: 09/12/24 08:59 Dose: 100 mg Hydromorphone HCl (Hydromorphone Hcl 0.5 Mg/0.5 Ml Syringe) 0.25 mg IVPUSH Q4H PRN; Protocol PRN Reason: Pain, Severe (Pain Scale 7-10) Last Admin: 09/12/24 08:12 Dose: 0.25 mg Clindamycin Phosphate (Cleocin) 600 mg in 50 mls @ 100 mls/hr IV PREOP ONE Stop: 09/13/24 14:16 Acetaminophen (Ofirmev) 1,000 mg in 100 mls @ 400 mls/hr IV Q6H [facility] Stop: 09/12/24 12:14 Last Infusion: 09/12/24 07:35 Dose: Infused Clindamycin Phosphate (Cleocin) 900 mg in 50 mls @ 50 mls/hr IV Q8H [facility] Last Infusion: 09/12/24 09:30 Dose: Infused Magnesium Hydroxide (Milk Of Magnesia 30 Ml Oral.Susp) 30 ml PO DAILY PRN PRN Reason: Constipation Melatonin (Melatonin 3 Mg Tablet) 6 mg PO BEDTIME PRN PRN Reason: Insomnia Ondansetron HCl (Ondansetron Hcl 4 Mg/2 Ml Vial) 4 mg IVPUSH Q8H PRN PRN Reason: Nausea and Vomiting Oxycodone HCl (Oxycodone Hcl Immed Release 5 Mg Tablet) 5 mg PO Q4H PRN PRN Reason: Pain, Moderate(Pain Scale 4-6) Oxycodone HCl (Oxycodone Hcl Er 10 Mg Tab.Er.12h) 10 mg PO BID PRN PRN Reason: Pain, Severe (Pain Scale 7-10) Last Admin: 09/12/24 08:59 Dose: 10 mg Sodium Chloride (0.9 % Sodium Chloride Flush 3 Ml Syringe) [address] [facility] Last Admin: 09/12/24 08:14 Dose: 3 ml Home Medications ?Medication ?Instructions ?Recorded ?Confirmed ?Last Taken ?Type albuterol sulfate 90 mcg/actuation 1 inh inhalation QID PRN wheezing 09/11/24 09/11/24 Unknown History aerosol inhaler (Ventolin HFA) ibuprofen 200 mg tablet 200 mg PO Q6H PRN Pain 09/11/24 09/11/24 09/11/24 History tramadol 50 mg tablet 50 mg PO BID PRN Pain 09/11/24 09/11/24 09/10/24 History Exam Height,Weight and Vital Signs: Height 5 ft 4 in Weight 75 kg Last Vital Signs Temp 98.5 F 09/12/24 10:00 Pulse 106 H 09/12/24 10:00 Resp 16 09/12/24 10:00 BP 114/62 09/12/24 10:00 Pulse Ox 98 09/12/24 10:00 O2 Del Method Room Air 09/12/24 10:00 Pertinent Lab Results Pertinent Lab Results: Laboratory Tests 09/11/24 09/12/24 14:08 06:14 WBC 20.9 H RBC 5.14 Hgb 11.4 L Hct 35.9 L MCV 69.8 L MCH 22.2 L MCHC 31.8 RDW 15.3 Plt Count 196 MPV Not Reportable Immature Gran % (Auto) 0.7 H Neut % (Auto) 88.2 H Lymph % (Auto) 4.3 L [place] % (Auto) 6.3 Eos % (Auto) 0.3 Baso % (Auto) 0.2 Lymph # (Auto) 0.9 L [place] # (Auto) 1.3 H Eos # (Auto) 0.1 Baso # (Auto) 0.0 Abs Immat Gran (auto) 0.14 H Absolute Neuts (auto) 18.5 H Absolute Nucleated RBC 0.000 Nucleated RBC % (auto) 0.0 ESR 40 H Hold Purple Top SEE NOTE PT 17.9 H INR 1.6 H APTT 35.4 Sodium 135 Potassium 4.0 Chloride 102 Carbon Dioxide 22 Anion Gap 15 BUN 9 Creatinine 0.65 Estim Creat Clear Calc 129.1 Estimated GFR > 60 Random Glucose 95 Lactic Acid 1.2 Calcium 9.8 Total Bilirubin 0.9 AST 29 ALT 16 Alkaline Phosphatase 69 C-Reactive Protein 28.16 H Total Protein 8.2 H Albumin 4.8 Beta HCG, Quant < 2 Airway Mallampati Class: I TM Dist: >3cm Neck ROM: Full Loose/Missing/Broken Teeth: No Heart: RRR Lungs: CTAB Assessment and Plan Final Anesthetic Review Family History of Problems with Anesthesia: No History of Problems with Anesthesia: No
[2024-09-12 12:25] LABS: Anion Gap 14 (12-20)
--- NOTE | 2024-09-12 12:46 | MHC.CM.PN ---
PT IS WORKING AND INDEPNDENT HAS OWN RIDE HOME WILL NOT NEED SERVICES WHEN DC PLAN HOME NO SERVICES
[2024-09-12] MEDS: oxyCODONE HCl Immed Release 5 MG TABLET PO (20:06)
[2024-09-13] VITALS (13 sets, daily range): BP systolic 109–127; BP diastolic 56–74; PULSE 72–125; RESP 12–20; TEMP 36.3–38.4; O2SAT 97–100
[2024-09-13] MEDS: oxyCODONE HCl Immed Release 5 MG TABLET PO (03:14)
[2024-09-13 06:44] LABS: Anion Gap 12 (12-20); Blood Urea Nitrogen 7 mg/dL (9-16); Calcium 9.0 mg/dL (8.4-10.2); Carbon Dioxide 26 mmol/L (22-29); Chloride 105 mmol/L (96-108); Creatinine Clr Calc Pharmacy 139.7; Estimated Glomerular Filt Rate > 60; Potassium 3.8 mmol/L (3.3-5.1); Sodium 139 mmol/L (135-145)
[2024-09-13] MEDS: 0.9 % Sodium Chloride Flush 3 ML SYRINGE IVFLUSH ×2 (07:44→20:51)
--- NOTE | 2024-09-13 13:54 | PC.NURSE ---
left leg swelling and red +ppp
--- NOTE | 2024-09-13 15:26 | MHC.SHP ---
Pre-Procedural Eval Section A - 24 Hr Update-Section A only Date of Service: 09/13/24 The patient is an INPATIENT: Yes Changes since office visit: No Cold of Flu in the past 2 weeks, No New Medical Problems, No Changes in Medication and No Patient answered all questions The patient has been examined within 24 hours of the surgical procedure. The History & Physical has been completed within 30 days and I have reviewed it.: Yes Section B - Complete if H&P > 30 days Chief Complaint: left ankle infected hardware Allergies: Allergies Allergy/AdvReac Type Severity Reaction Status Date / Time amoxicillin (AMOXICILLIN) Allergy Severe anaphylaxis Verified 09/11/24 13:40 ,rash omalizumab (From XOLAIR) Allergy Severe HIVES AND Verified 09/11/24 13:40 THROAT CLOSING Penicillins (PENICILLINS) Allergy Severe Anaphylaxis Verified 09/11/24 13:40 seafood Allergy Severe Anaphylaxis Verified 09/11/24 13:40 cetirizine (From ZYRTEC) Allergy Intermediate SHORTNESS Verified 09/11/24 13:40 OF BREATH vancomycin (VANCOMYCIN) Allergy Intermediate RASH, Verified 09/11/24 13:40 itching grass pollen Allergy Mild Hives Verified 09/11/24 13:40 animal dander Allergy Unknown HIVES Verified 09/11/24 13:40 loratadine (LORATADINE) Allergy Unknown THROAT Verified 09/11/24 13:40 SWELLING, hives Plan I have reviewed the history and physical and performed a pertinent physical examination on my patient. No changes have occurred unless specified. Time Spent With Patient Time: Total time managing care of this patient today ____ minutes.
--- NOTE | 2024-09-13 16:01 | HO.ANESPROP2 ---
[facility] Active Problems Active Problems: All Active Problems (Updated 09/12/24 @ 08:35 by Ariana Tutlte RN) Osteomyelitis of ankle (Acute) Renal stones (Acute) Vomiting (Acute) Constipation (Acute) Abdominal bloating (Acute) Abdominal pain (Acute) Environmental and seasonal allergies (Acute) Abnormal lung sounds (Acute) Breast pain, left (Acute) Immunization counseling (Acute) , delivered (Acute) Adult general medical exam (Acute) Dyspnea (Acute) state, incidental (Acute) Asthma (Acute) Tachycardia (Acute) Past Medical History Medical History DVT (deep venous thrombosis) Tachycardia Asthma Functional capacity: independent ambulation Patient : No Family History Family History Father Stroke Diabetes Hypertension Paternal Grandmother Pacemaker Family history of problems with anesthesia: No Surgical History Surgical History H/O wisdom tooth extraction History of Problems with Anesthesia: No Social History Social History Household Members: Children Housing: House Do you presently have visiting nurse or other home services: No Alcohol intake: current Alcohol intake frequency: does not drink Patient Tobacco Use Status: Never used Tobacco Smoked in Last 30 Days: No e-Cigarette/Vaping Use: Never Used Use of substances other than those prescribed or required for medical reasons: No Currently Displaying Signs/Symptoms of Drug Intoxication Withdrawal: No Have you been hit, kicked, punched, or otherwise hurt by someone within the past year? 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 Cognitive needs: No Hearing needs: No Vision needs: No Meds Allergies Allergy/AdvReac Type Severity Reaction Status Date / Time amoxicillin (AMOXICILLIN) Allergy Severe anaphylaxis Verified 09/11/24 13:40 ,rash omalizumab (From XOLAIR) Allergy Severe HIVES AND Verified 09/11/24 13:40 THROAT CLOSING Penicillins (PENICILLINS) Allergy Severe Anaphylaxis Verified 09/11/24 13:40 seafood Allergy Severe Anaphylaxis Verified 09/11/24 13:40 cetirizine (From ZYRTEC) Allergy Intermediate SHORTNESS Verified 09/11/24 13:40 OF BREATH vancomycin (VANCOMYCIN) Allergy Intermediate RASH, Verified 09/11/24 13:40 itching grass pollen Allergy Mild Hives Verified 09/11/24 13:40 animal dander Allergy Unknown HIVES Verified 09/11/24 13:40 loratadine (LORATADINE) Allergy Unknown THROAT Verified 09/11/24 13:40 SWELLING, hives Active Medications: Current Medications Acetaminophen (Acetaminophen 325 Mg Tablet) 650 mg PO Q8H PRN PRN Reason: Fever Last Admin: 09/13/24 03:12 Dose: 650 mg Calcium Carbonate (Calcium Carbonate 750 Mg Tab.Chew) 750 mg PO Q4H PRN PRN Reason: Heartburn Docusate Sodium (Docusate Sodium 100 Mg Capsule) 100 mg PO BID [facility] Last Admin: 09/13/24 07:44 Dose: Not Given Hydromorphone HCl (Hydromorphone Hcl 0.5 Mg/0.5 Ml Syringe) 0.25 mg IVPUSH Q4H PRN; Protocol PRN Reason: Pain, Severe (Pain Scale 7-10) Last Admin: 09/13/24 10:19 Dose: 0.25 mg Clindamycin Phosphate (Cleocin) 900 mg in 50 mls @ 50 mls/hr IV Q8H [facility] Last Infusion: 09/13/24 09:06 Dose: Infused Magnesium Hydroxide (Milk Of Magnesia 30 Ml Oral.Susp) 30 ml PO DAILY PRN PRN Reason: Constipation Melatonin (Melatonin 3 Mg Tablet) 6 mg PO BEDTIME PRN PRN Reason: Insomnia Ondansetron HCl (Ondansetron Hcl 4 Mg/2 Ml Vial) 4 mg IVPUSH Q8H PRN PRN Reason: Nausea and Vomiting Oxycodone HCl (Oxycodone Hcl Immed Release 5 Mg Tablet) 5 mg PO Q4H PRN PRN Reason: Pain, Moderate(Pain Scale 4-6) Last Admin: 09/13/24 03:14 Dose: 5 mg Oxycodone HCl (Oxycodone Hcl Er 10 Mg Tab.Er.12h) 10 mg PO BID PRN PRN Reason: Pain, Severe (Pain Scale 7-10) Last Admin: 09/12/24 23:32 Dose: 10 mg Sodium Chloride (0.9 % Sodium Chloride Flush 3 Ml Syringe) 3 ml IVFLUSH [facility]SHIFT [facility] Last Admin: 09/13/24 07:44 Dose: 3 ml Home Medications ?Medication ?Instructions ?Recorded ?Confirmed ?Last Taken ?Type albuterol sulfate 90 mcg/actuation 1 inh inhalation QID PRN wheezing 09/11/24 09/11/24 Unknown History aerosol inhaler (Ventolin HFA) ibuprofen 200 mg tablet 200 mg PO Q6H PRN Pain 09/11/24 09/11/24 09/11/24 History tramadol 50 mg tablet 50 mg PO BID PRN Pain 09/11/24 09/11/24 09/10/24 History Exam Height,Weight and Vital Signs: Height 5 ft 4 in Weight 75 kg Last Vital Signs Temp 98.5 F 09/13/24 13:47 Pulse 110 H 09/13/24 13:47 Resp 20 09/13/24 13:47 BP 110/56 L 09/13/24 13:47 Pulse Ox 97 09/13/24 13:47 O2 Del Method Room Air 09/13/24 13:47 Pertinent Lab Results Pertinent Lab Results: Laboratory Tests 09/11/24 09/12/24 09/12/24 14:08 06:14 07:58 WBC 20.9 H RBC 5.14 Hgb 11.4 L Hct 35.9 L MCV 69.8 L MCH 22.2 L MCHC 31.8 RDW 15.3 Plt Count 196 MPV Not Reportable Immature Gran % (Auto) 0.7 H Neut % (Auto) 88.2 H Lymph % (Auto) 4.3 L [place] % (Auto) 6.3 Eos % (Auto) 0.3 Baso % (Auto) 0.2 Lymph # (Auto) 0.9 L [place] # (Auto) 1.3 H Eos # (Auto) 0.1 Baso # (Auto) 0.0 Abs Immat Gran (auto) 0.14 H Absolute Neuts (auto) 18.5 H Absolute Nucleated RBC 0.000 Nucleated RBC % (auto) 0.0 ESR 40 H Hold Purple Top SEE NOTE PT 17.9 H INR 1.6 H APTT 35.4 Sodium 135 137 Potassium 4.0 4.3 Chloride 102 107 Carbon Dioxide 22 23 Anion Gap 15 14 BUN 9 7 L Creatinine 0.65 0.59 Estim Creat Clear Calc 129.1 142.3 Estimated GFR > 60 > 60 Random Glucose 95 Fasting Glucose 88 Lactic Acid 1.2 Calcium 9.8 8.9 D Total Bilirubin 0.9 AST 29 ALT 16 Alkaline Phosphatase 69 C-Reactive Protein 28.16 H Total Protein 8.2 H Albumin 4.8 Beta HCG, Quant < 2 09/13/24 06:03 WBC RBC Hgb Hct MCV MCH MCHC RDW Plt Count MPV Immature Gran % (Auto) Neut % (Auto) Lymph % (Auto) [place] % (Auto) Eos % (Auto) Baso % (Auto) Lymph # (Auto) [place] # (Auto) Eos # (Auto) Baso # (Auto) Abs Immat Gran (auto) Absolute Neuts (auto) Absolute Nucleated RBC Nucleated RBC % (auto) ESR Hold Purple Top SEE NOTE PT INR APTT Sodium 139 Potassium 3.8 Chloride 105 Carbon Dioxide 26 Anion Gap 12 BUN 7 L Creatinine 0.60 Estim Creat Clear Calc 139.7 Estimated GFR > 60 Random Glucose Fasting Glucose 82 Lactic Acid Calcium 9.0 Total Bilirubin AST ALT Alkaline Phosphatase C-Reactive Protein Total Protein Albumin Beta HCG, Quant Airway Mallampati Class: II TM Dist: >3cm Neck ROM: Full Heart: Fast heart rate Lungs: CTA Assessment and Plan Assessment Anesthesia Assessment: Anesthesia Plan Discussed and Chart Reviewed Final Anesthetic Review Family History of Problems with Anesthesia: No History of Problems with Anesthesia: No NPO: Yes ASA Class: II and Emergency Final Preanesthetic Review: Meds/Allgs Chart Reviewed, Consent Obtained/Reviewed and Anes Risks/Benef Reviewed Patient Risk: Intermediate Procedure Risk: Low Anesthetic Plan Anesthetic Plan: GA Disposition: Standard PACU
--- NOTE | 2024-09-13 16:49 | PM.OP ---
Brief Operative Note Date of Service: 09/13/24 Pre-op diagnosis: left ankle infected hardware Post-op diagnosis: same Procedure: removal of hardware with irrigation and debridement Implants: none Surgeon: Zachary Copeland MD Anesthesia: GETA and regional Was an Roof Promenade Tile Setter used for this Procedure?: Yes Roof Promenade Tile Setter: Med Prince Estimated blood loss (mL): 200 IV fluids (mL): 800 Pathology: other Condition: stable Disposition: PACU
[2024-09-14 03:19] VITALS: BP 128/58; PULSE 95; RESP 18; TEMP 36.1; O2SAT 99
[2024-09-14 06:21] LABS: Anion Gap 15 (12-20); Blood Urea Nitrogen 10 mg/dL (9-16); Calcium 9.4 mg/dL (8.4-10.2); Carbon Dioxide 26 mmol/L (22-29); Chloride 102 mmol/L (96-108); Creatinine Clr Calc Pharmacy 171.0; Estimated Glomerular Filt Rate > 60; Potassium 4.1 mmol/L (3.3-5.1); Sodium 139 mmol/L (135-145)
--- NOTE | 2024-09-14 07:52 | PM.PNORT ---
Subjective Subjective Date of Service: 09/14/24 Interval history: POD1 s/p left ankle removal of hardware with irrigation and debridement Patient is resting in bed comfortably No overnight events Pain is managed No additional complaints Physical Exam Vital Signs: Vital Signs: Last Vital Signs Temp 97.0 F 09/14/24 03:19 Pulse 95 09/14/24 03:19 Resp 18 09/14/24 03:19 BP 128/58 L 09/14/24 03:19 Pulse Ox 99 09/14/24 03:19 O2 Del Method Room Air 09/14/24 03:19 O2 Flow Rate 2 09/13/24 17:59 BMI result Body Mass Index 28.4 Const: General: cooperative, healthy appearing and no acute distress Resp: Effort & Inspection: normal respiratory effort and able to speak in complete sentences Extrem: Other: left ankle splint is c/d/i. Able to move digits. capillary refill brisk. Procedures Date of Service Date of Service: 09/14/24 Progress Note: A&P Assessment and plan (1) Osteomyelitis of ankle: Status: Acute (2) S/P hardware removal: Status: Acute Plan Keep splint c/d/i pain management Elevate LLE on three pillows above heart level Monitor for cultures Cont. Clinda Pending ID consult Time Spent With Patient Time: Total time managing care of this patient today ____ minutes. Quality Stroke Does the patient have a stroke diagnosis?: No VTE Prior VTE?: No VTE Risk Level:: Medical - moderate - high VTE Device Contraindication: N/A - Device Ordered VTE Drug Contraindication: N/A - Med Ordered
[2024-09-14 08:00] VITALS: BP 123/71; PULSE 90; RESP 18; TEMP 36.7; O2SAT 98
[2024-09-14] MEDS: oxyCODONE HCl Immed Release 5 MG TABLET PO ×2 (08:35→19:42)
[2024-09-14] MEDS: 0.9 % Sodium Chloride Flush 3 ML SYRINGE IVFLUSH ×3 (08:41→20:25)
--- NOTE | 2024-09-14 09:12 | HO.POSTANES ---
Post Anesthesia Evaluation Post Anesthesia Evaluation Date of Service: 09/14/24 Vital Signs: Vital Signs Temp Pulse Resp BP Pulse Ox O2 Del Method 09/14/24 08:00 98.1 F 90 18 123/71 98 Room Air 09/14/24 03:19 97.0 F 95 18 128/58 L 99 Room Air 09/13/24 23:21 97.3 F 94 18 118/68 99 Room Air Anesthesia: General Mental Status: Awake Pain Control: Satisfactory Nausea/Vomiting: None Hydration: Adequate Anesthesia-Related Issues: No Anes. Related Issues
[2024-09-14 12:00] VITALS: BP 112/59; PULSE 87; RESP 16; TEMP 36.8; O2SAT 98
--- NOTE | 2024-09-14 15:04 | MHC.CM.PN ---
S/P O.R. 09/13 for hardware removal. Patient is not medically clear to discharge today. DP home selfcare. He will arrange for transport to home @ discharge.
[2024-09-14 15:09] VITALS: BP 116/70; PULSE 89; RESP 18; TEMP 36.7; O2SAT 98
--- NOTE | 2024-09-14 16:34 | W.PM.IDCN ---
History of Present Illness Data of Consult Service Date: 09/14/24 Requesting physician: Jolanta Nova Primary Care Provider: Magnus Hampton MD HPI Reason for consult: swelling and pain ankle She presents with discomfort ,swelling and open area medial incision with serosanguinous fluid leak. She has no fever or chills. 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 She came to ER and received XRay and on 06/14 had ORIF lateral malleolus with Dr Copeland. She had ana out and on 07/02-07/26 had aircasts with two changes. She shows pictures and had boot after. She had irritated operative site she feels and had some slightly open areas after air cast removed but no purulence. She had 4 days ago worsening pain and swelling and then three days ago severe swelling unable to walk well and came to ER. She did have removeal of hardware and clean out on 09/13. She feels better. Review of Systems Review of Systems: Yes all other systems are reviewed and are negative [facility] Past Medical History Medical History DVT (deep venous thrombosis) Tachycardia Asthma Family History Family History Father Stroke Diabetes Hypertension Paternal Grandmother Pacemaker Family history: reviewed and not pertinent Surgical History Surgical History H/O wisdom tooth extraction Social History Social History Household Members: Children Housing: House Do you presently have visiting nurse or other home services: No Alcohol intake: current Alcohol intake frequency: does not drink Patient Tobacco Use Status: Never used Tobacco Smoked in Last 30 Days: No e-Cigarette/Vaping Use: Never Used Use of substances other than those prescribed or required for medical reasons: No Currently Displaying Signs/Symptoms of Drug Intoxication Withdrawal: No Have you been hit, kicked, punched, or otherwise hurt by someone within the past year? 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 Cognitive needs: No Hearing needs: No Vision needs: No Meds Allergies Allergy/AdvReac Type Severity Reaction Status Date / Time amoxicillin (AMOXICILLIN) Allergy Severe anaphylaxis Verified 09/11/24 13:40 ,rash omalizumab (From XOLAIR) Allergy Severe HIVES AND Verified 09/11/24 13:40 THROAT CLOSING Penicillins (PENICILLINS) Allergy Severe Anaphylaxis Verified 09/11/24 13:40 seafood Allergy Severe Anaphylaxis Verified 09/11/24 13:40 cetirizine (From ZYRTEC) Allergy Intermediate SHORTNESS Verified 09/11/24 13:40 OF BREATH vancomycin (VANCOMYCIN) Allergy Intermediate RASH, Verified 09/11/24 13:40 itching grass pollen Allergy Mild Hives Verified 09/11/24 13:40 animal dander Allergy Unknown HIVES Verified 09/11/24 13:40 loratadine (LORATADINE) Allergy Unknown THROAT Verified 09/11/24 13:40 SWELLING, hives Active Medications: Current Medications Acetaminophen (Acetaminophen 325 Mg Tablet) 650 mg PO Q8H PRN PRN Reason: Fever Last Admin: 09/13/24 03:12 Dose: 650 mg Calcium Carbonate (Calcium Carbonate 750 Mg Tab.Chew) 750 mg PO Q4H PRN PRN Reason: Heartburn Docusate Sodium (Docusate Sodium 100 Mg Capsule) 100 mg PO BID [facility] Last Admin: 09/14/24 08:35 Dose: 100 mg Hydromorphone HCl (Hydromorphone Hcl 0.5 Mg/0.5 Ml Syringe) 0.25 mg IVPUSH Q4H PRN; Protocol PRN Reason: Pain, Severe (Pain Scale 7-10) Last Admin: 09/14/24 13:06 Dose: 0.25 mg Clindamycin Phosphate (Cleocin) 900 mg in 50 mls @ 50 mls/hr IV Q8H [facility] Last Admin: 09/14/24 16:23 Dose: 50 mls/hr Magnesium Hydroxide (Milk Of Magnesia 30 Ml Oral.Susp) 30 ml PO DAILY PRN PRN Reason: Constipation Melatonin (Melatonin 3 Mg Tablet) 6 mg PO BEDTIME PRN PRN Reason: Insomnia Naloxone HCl (Naloxone Hcl 0.4 Mg/Ml Vial) 0.04 mg IVPUSH Q5M PRN PRN Reason: Excessive sedation or RR < 8 Ondansetron HCl (Ondansetron Hcl 4 Mg/2 Ml Vial) 4 mg IVPUSH Q8H PRN PRN Reason: Nausea and Vomiting Oxycodone HCl (Oxycodone Hcl Immed Release 5 Mg Tablet) 5 mg PO Q4H PRN PRN Reason: Pain, Moderate(Pain Scale 4-6) Last Admin: 09/14/24 08:35 Dose: 5 mg Oxycodone HCl (Oxycodone Hcl Er 10 Mg Tab.Er.12h) 10 mg PO BID PRN PRN Reason: Pain, Severe (Pain Scale 7-10) Last Admin: 09/12/24 23:32 Dose: 10 mg Sodium Chloride (0.9 % Sodium Chloride Flush 3 Ml Syringe) 3 ml IVFLUSH [facility] Last Admin: 09/14/24 16:26 Dose: 3 ml Home Medications ?Medication ?Instructions ?Recorded ?Confirmed ?Last Taken ?Type albuterol sulfate 90 mcg/actuation 1 inh inhalation QID PRN wheezing 09/11/24 09/11/24 Unknown History aerosol inhaler (Ventolin HFA) ibuprofen 200 mg tablet 200 mg PO Q6H PRN Pain 09/11/24 09/11/24 09/11/24 History tramadol 50 mg tablet 50 mg PO BID PRN Pain 09/11/24 09/11/24 09/10/24 History Physical Exam Vital Signs: Vital Signs: Last Vital Signs Temp 98.1 F 09/14/24 15:09 Pulse 89 09/14/24 15:09 Resp 18 09/14/24 15:09 BP 116/70 09/14/24 15:09 Pulse Ox 98 09/14/24 15:09 O2 Del Method Room Air 09/14/24 15:09 O2 Flow Rate 2 09/13/24 17:59 BMI result Body Mass Index 28.4 Const: General: cooperative HEENT: Head: Yes normal to inspection Face and sinus: Yes normal facial exam Mouth: Normal oral and palatal mucosa present Teeth and gingiva: dentition normal Eyes: General: appearance normal, both eyes and all related structures Pupils: Equal, round and reactive pupils present Resp: Effort & Inspection: normal respiratory effort Cardio: Rate: regular rate Rhythm: regular rhythm GI: Palpation (GI): Soft to palpation and nontender : General: Yes no CVA tenderness Back/Spine/Pelvis: Back: no CVA tenderness Skin: General skin exam: no rashes or lesions noted Neuro: General: moves all extremities Cranial nerves: Yes Equal, round and reactive pupils present Extrem: Other: area left ankle wrapped,clean General: Yes normal to inspection Psych: Appearance: grossly normal Results Labs 09/11/24 14:08 09/14/24 05:25 Labs: BMP 09/14/24 05:25 Sodium 139 Potassium 4.1 Chloride 102 Carbon Dioxide 26 BUN 10 Creatinine 0.49 L Calcium 9.4 Microbiology Microbiology Results: Microbiology 09/13/24 15:51 Ankle - Left Gram Stain - Final 09/13/24 15:51 Ankle - Left Routine Culture - Preliminary Culture in progress. 09/11/24 14:46 Blood - Venous Blood Culture - Preliminary No growth after 48 hours. 09/11/24 14:08 Blood - Venous Blood Culture - Preliminary No growth after 48 hours. Assessment and Plan (1) S/P hardware removal: Status: Acute Rx for OM likely small focal possible bone involvement talus. (2) Osteomyelitis of ankle: Qualifiers: Laterality: left Status: Acute Plan Await cultures. Stop Clindamycin. IV Vancomycin likely six weeks with weekly trough and creatinine. Adjust cultures as needed.
--- NOTE | 2024-09-14 16:46 | PM.EVENT ---
Event Note Date of Service: 09/14/24 Event Note: patient denies allergies,reported Vancomycin itching,can try Daptomycin or Vancomycin with antihistamines reported Anaphylaxis PCN Time Spent With Patient Time: Total time managing care of this patient today ____ minutes.
--- NOTE | 2024-09-14 16:47 | PM.EVENT ---
Event Note Date of Service: 09/14/24 Event Note: contraception while on antibiotics Time Spent With Patient Time: Total time managing care of this patient today ____ minutes.
[2024-09-14] MEDS: DAPTOmycin 600 MG in 0.9 % Sodium Chloride 50 ML 100 MG IV (19:44)
[2024-09-14 19:49] VITALS: BP 113/61; PULSE 88; RESP 16; TEMP 36.6; O2SAT 98
[2024-09-14 23:14] VITALS: BP 118/76; PULSE 76; RESP 16; TEMP 36.4; O2SAT 98
[2024-09-15] VITALS (8 sets, daily range): BP systolic 96–131; BP diastolic 52–79; PULSE 58–87; RESP 14–20; TEMP 36.1–36.7; O2SAT 97–100
[2024-09-15] MEDS: oxyCODONE HCl Immed Release 5 MG TABLET PO (06:07)
[2024-09-15 06:21] LABS: Anion Gap 14 (12-20); Blood Urea Nitrogen 12 mg/dL (9-16); Calcium 9.1 mg/dL (8.4-10.2); Carbon Dioxide 24 mmol/L (22-29); Chloride 109 mmol/L (96-108); Creatinine Clr Calc Pharmacy 178.2; Estimated Glomerular Filt Rate > 60; Potassium 3.7 mmol/L (3.3-5.1); Sodium 143 mmol/L (135-145)
--- NOTE | 2024-09-15 07:33 | W.PM.OPN ---
Operative Note Operative Note Date of Service: 09/13/24 Narrative: Date of Service: 09/13/24 Pre-op diagnosis: left ankle infected hardware Post-op diagnosis: same Procedure: removal of hardware with irrigation and debridement Implants: none Surgeon: Zachary Copeland MD Anesthesia: GETA and regional Was an Final Assembler Boat used for this Procedure?: Yes Final Assembler Boat: Med Prince Estimated blood loss (mL): 200 IV fluids (mL): 800 Pathology: other Condition: stable Disposition: PACU Procedure in detail: Patient was brought to the operating room and placed in the supine position on the surgical table. She was prepped and draped in standard sterile fashion and a time out was called to identify proper site, proper procedure and IV antibiotics per weight were held. I began by making an incision over the previous surgical incision. There was expression of copious amounts of purulence. Over the distal aspect of the incision there was a small ulceration of the skin without any full-thickness component. Full thickness flaps were taken down to the plate and a periosteal elevator was used to remove soft tissue from the plate. Cultures were obtained and IV antibiotics were administered. The screws and the plate were then removed without difficulty. The screw holes and extraneous bone were debrided with a currette and rongeur. The bone quality was good and appeared normal. I used a pulse lavage to irrigate copiously proximally of the lateral aspect of the leg and distally. A pocket of purulence was expressed from the anterolateral forefoot overlying the talus. There was no joint penetration and I was hesitant to aspirate the joint. The soft tissue was debrided with a combination of a rongeur and a curette down to bleeding healthy-appearing tissue. A total of 6 L was used to irrigate the wounds. I examined the medial side and placed a 18 gauge needle around the medial malleolus to ensure that the soft tissue swelling was not secondary to a abscess. I obtained no fluid at all and felt that I had adequately removed any of the infected tissue. I then placed a half-inch iodoform packing in the anterolateral abscess extending out the distal aspect of the incision. The incision was then closed with vertical mattress nylon. Patient was placed into a sterile dressing and a dorsiflexion splint extubated and brought to recovery room in stable condition. There were no known complications.
[2024-09-15] MEDS: 0.9 % Sodium Chloride Flush 3 ML SYRINGE IVFLUSH ×3 (08:57→21:27)
--- NOTE | 2024-09-15 09:10 | P.PNOP_ITS ---
Subjective Subjective Date of Service: 09/15/24 Interval history: POD2 s/p left ankle removal of hardware with I&D Patient is resting in bed comfortably No overnight events Patient reports pain No additional complaints Physical Exam 2 Vital Signs: Vital Signs: Last Vital Signs Temp 97.6 F 09/15/24 07:53 Pulse 71 09/15/24 07:53 Resp 20 09/15/24 09:04 BP 117/74 09/15/24 07:53 Pulse Ox 99 09/15/24 07:53 O2 Del Method Room Air 09/15/24 07:53 O2 Flow Rate 2 09/13/24 17:59 BMI result Body Mass Index 28.4 Const: General: cooperative, healthy appearing and no acute distress Resp: Effort & Inspection: normal respiratory effort and able to speak in complete sentences Extrem: Other: left ankle splint is c/d/i. Able to move digits. Splint removed. Incision site is c/d/i. Sutures intact. Packing in place which has been pulled at bedside. Mild bloody/serosang discharge. No purulent discharge noted. Procedures Date of Service Date of Service: 09/15/24 Progress Note: A&P Assessment and plan (1) Osteomyelitis of ankle: Status: Acute (2) S/P hardware removal: Status: Acute Plan Packing pulled at bedside Xerofrom gauze and ABD placed with an FILIPE wrap over the incision site -Nursing to change dressing daily or if the current dressing becomes saturated Placed in a Blue night splint -Cannot WB on the night splint pain management Elevate LLE on three pillows above heart level Monitor cultures Cont. abx Pending PICC line insertion per ID recommendations Time Spent With Patient Time: Total time managing care of this patient today ____ minutes. Quality Stroke Does the patient have a stroke diagnosis?: No VTE Prior VTE?: No VTE Risk Level:: Medical - moderate - high VTE Device Contraindication: N/A - Device Ordered VTE Drug Contraindication: N/A - Med Ordered
--- NOTE | 2024-09-15 14:23 | MHC.CM.PN ---
PT WILL NEED LT IV ABT AT HOME, NEW REFERRAL TO [facility] ([facility] CHO[facility]) AND [facility] FOR [facility]. [facility] LIAISON IN TO DO TEACH. PT IS AWAITING FINAL CULTURES/PICC PLACEMENT. CM WILL CONTINUE TO FOLLOW.
[2024-09-15] MEDS: oxyCODONE HCl ER 10 MG TAB.ER.12H PO (16:25)
[2024-09-15] MEDS: DAPTOmycin 600 MG in 0.9 % Sodium Chloride 50 ML 100 MG IV (19:54)
[2024-09-16 03:43] VITALS: BP 113/66; PULSE 71; RESP 16; TEMP 36.1; O2SAT 98
[2024-09-16] MEDS: oxyCODONE HCl ER 10 MG TAB.ER.12H PO (06:25)
[2024-09-16 07:23] VITALS: BP 134/60; PULSE 78; RESP 16; TEMP 36.2; O2SAT 98
[2024-09-16 07:50] LABS: Anion Gap 12 (12-20); Blood Urea Nitrogen 11 mg/dL (9-16); Calcium 8.9 mg/dL (8.4-10.2); Carbon Dioxide 29 mmol/L (22-29); Chloride 103 mmol/L (96-108); Creatinine Clr Calc Pharmacy 164.3; Estimated Glomerular Filt Rate > 60; Potassium 4.4 mmol/L (3.3-5.1); Sodium 140 mmol/L (135-145)
[2024-09-16] MEDS: 0.9 % Sodium Chloride Flush 3 ML SYRINGE IVFLUSH (08:29)
--- NOTE | 2024-09-16 09:29 | P.PNOP_ITS ---
Subjective Subjective Date of Service: 09/16/24 Interval history: POD3 s/p left ankle removal of hardware with I&D Patient is resting in bed comfortably No overnight events Patient reports pain No additional complaints Physical Exam 2 Vital Signs: Vital Signs: Last Vital Signs Temp 97.1 F 09/16/24 07:23 Pulse 78 09/16/24 07:23 Resp 16 09/16/24 07:23 BP 134/60 09/16/24 07:23 Pulse Ox 98 09/16/24 07:23 O2 Del Method Room Air 09/16/24 07:23 O2 Flow Rate 2 09/13/24 17:59 BMI result Body Mass Index 28.4 Const: General: cooperative, healthy appearing and no acute distress Resp: Effort & Inspection: normal respiratory effort and able to speak in complete sentences Extrem: Other: Splint on left ankle clean, dry, intact No evidence of surrounding erythema, ecchymosis No evidence of infection Patient is able to flex and extend the digits of the left foot without difficulty Compartments soft, nontender Distal sensation intact Capillary refill brisk Procedures Date of Service Date of Service: 09/16/24 Progress Note: A&P Assessment and plan (1) S/P hardware removal: Status: Acute (2) Osteomyelitis of ankle: Status: Acute Plan 1. Status post I and D and removal of hardware of the left ankle DOS 09/15/2024 Continue pain management Continue IV antibiotics Per recommendation of Dr. Reyes, IV daptomycin daily for 6 weeks both in the hospital and upon discharge PICC line ordered, awaiting placement of line Nonweightbearing on left lower extremity Keep splint clean, dry, intact Time Spent With Patient Time: Total time managing care of this patient today ____ minutes. Quality Stroke Does the patient have a stroke diagnosis?: No VTE Prior VTE?: No VTE Risk Level:: Medical - moderate - high VTE Device Contraindication: N/A - Device Ordered VTE Drug Contraindication: N/A - Med Ordered
[2024-09-16 11:46] VITALS: BP 115/58; PULSE 84; RESP 14; TEMP 36.6; O2SAT 100
[2024-09-16 11:46] LABS: Resp Syncy Virus RNA Qual PCR NEGATIVE (Negative); SARS COV2 PCR INHOUSE NEGATIVE (Negative)
--- NOTE | 2024-09-16 11:57 | W.MHC.F2F ---
Service Date Service Date: 09/16/24 Encounter Date of encounter: 09/13/24 Reasons for Services Signs and symptoms assessed: Status post removal of hardware and I and D of left ankle Osteomyelitis of left ankle Reason for [facility]: administration of IV, SQ, or IM injection (Patient will require administration of IV daptomycin daily) and central line care (Indwelling PICC line for home IV antibiotics) Homebound: Leaving the home is medically contraindicated at this time without the asist of a device and/or another person due th the listed conditions above and below. Reason homebound: non-weight bearing Certification: Based on the above findings, I certify that this patient is confined to the home and needs intermittent [facility] care, physical therapy and/or speech therapy, or continues to need occupational therapy. The patient is under my care, and I have initiated the establishment of the plan of care. The patient will be followed by a physician who will periodically review the plan of care. Time Spent With Patient Time: Total time managing care of this patient today ____ minutes.
--- NOTE | 2024-09-16 13:11 | MHC.CM.PN ---
DP: PT IS MEDICALLY CLEARED FOR DC HOME WITH NEW [facility]. [facility] HAS BEEN NOTIFIED OF TODAY'S DC. PT HAS OWN RIDE HOME.
--- NOTE | 2024-09-16 13:52 | P.DS_ITS ---
DS: Providers Provider Date of Service: 09/13/24 Date of admission: 09/11/24 17:48 Date of discharge: 09/16/24 Primary care physician: Magnus Hampton MD Consults: 09/13/24 17:49 Consult to Infectious Diseases Routine Consulting Provider: [facility] Reason for consultation: left ankle hardware infection -abx recommendations DS: Diagnosis Discharge Diagnosis (1) S/P hardware removal: Status: Acute (2) Osteomyelitis of ankle: Status: Acute DS: Summary Hospital Course Hospital Course: Patient is a 29-year-old female who was admitted to the hospital for hardware infection and osteomyelitis of the left ankle status post left ankle ORIF. The patient underwent a successful removal of hardware an I and D of left ankle on 09/13/2024, was transferred to PACU and then to the floor to recover. During their stay, their vitals were stable, afebrile at 97.8. Labs were unremarkable, H/H 11.4/35.9. POD 1 she was started on aspirin 325 mg for DVT ppx, they also received Physical Therapy services twice a day. Patient was also started on IV daptomycin for osteomyelitis and infected hardware of the left ankle, this should continue for 6 weeks postoperatively. Nonweightbearing on left lower extremity, keep splint and dressing clean, dry, intact until follow-up in our office Patient will require visiting nursing for IV daptomycin administration and care for PICC line. Prior to discharge, her dressing was changed, incision clean dry and intact. A new dressing was applied, dressing should remain clean dry and intact until follow-up. Any concerns with the dressing, please contact orthopedic office. No showering. The plan is to be discharged Status at Discharge Cognitive/behavioral status at discharge: Stable for discharge Time Attestation Discharge Coordination Time (in mins): 30 Quality: Safe Use of Opioids Does Pt have an Active Cancer Diagnosis on the Problem List?: No Quality: Stroke Does the patient have a stroke diagnosis?: No Physical Exam Vital Signs: Vital Signs: Last Vital Signs Temp 97.8 F 09/16/24 11:46 Pulse 84 09/16/24 11:46 Resp 14 09/16/24 11:46 BP 115/58 L 09/16/24 11:46 Pulse Ox 100 09/16/24 11:46 O2 Del Method Room Air 09/16/24 11:46 O2 Flow Rate 2 09/13/24 17:59 BMI result Body Mass Index 28.4 DS: Data Data Completed and Pending Labs on day of discharge: Laboratory Results - last 24 hr 09/16/24 09/16/24 06:06 10:52 Hold Purple Top SEE NOTE Sodium 140 Potassium 4.4 Chloride 103 Carbon Dioxide 29 Anion Gap 12 BUN 11 Creatinine 0.51 Estim Creat Clear Calc 164.3 Estimated GFR > 60 Fasting Glucose 77 Calcium 8.9 Influenza Type A (PCR) NEGATIVE Influenza Type B (PCR) NEGATIVE RSV RNA Qual (PCR) NEGATIVE SARS-CoV-2 RNA (RT-PCR) NEGATIVE Preliminary micro results at discharge 09/11/24 14:46 Blood Culture - Preliminary Blood - Venous No growth after 48 hours. 09/11/24 14:08 Blood Culture - Preliminary Blood - Venous No growth after 48 hours. Discharge Plan Discharge Anticipated Discharge Date/Time: 09/16/24 13:06 Patient Disposition: Home Health Service Discharge Diagnosis: left ankle osteomylitis Referrals: [facility] [Other] - 1 Week Referral Note: HOME INFUSION SERVICES FOR IV MEDICATION AND SUPPLIES Andrez SANTOYO [Outside] - 1 Week Referral Note: HOME SERVICES FOR NURSING HOME- A NURSE WILL CALL YOU TO SET UP FIRST VISIT Neha Reyes MD [Physician, Infectious Disease] - 1 Week Med Prince PA-C [Physician Landscape Nurseryman, Orthopedics] - 09/22/24 11:00 am Referral Note: 09/22/24 at 11:00 Discharge Medications: New acetaminophen 325 mg Tablet 650 mg PO Q8H PRN (Reason: Fever) 30 Days Qty: 90 0RF aspirin 325 mg Tablet 325 mg PO BID 30 Days Qty: 60 0RF oxycodone 5 mg Tablet 5 mg PO Q4H PRN (Reason: Pain, Moderate(Pain Scale 4-6)) 7 Days Qty: 42 0RF Rx Instructions: Partial Fill upon patient request. docusate sodium 100 mg Capsule 100 mg PO BID 7 Days Qty: 14 0RF daptomycin 350 mg recon soln 600 mg IV Q24H Rx Instructions: administer over 30 mins Continued diazepam [Valium] 2 mg tablet 2 mg PO BID PRN (Reason: muscle spasm) Qty: 8 0RF albuterol sulfate [Ventolin HFA] 90 mcg/actuation HFA aerosol inhaler 1 inh inhalation QID PRN (Reason: wheezing) ibuprofen 200 mg Tablet 200 mg PO Q6H PRN (Reason: Pain) (DME) Kneeling Scooter See Rx Instructions .ROUTE .MEDSUPPLY Qty: 1 0RF Rx Instructions: As directed Discontinued tramadol 50 mg tablet 50 mg PO BID PRN (Reason: Pain) Discharge Orders: Discharge Order (Routine); Ordered 09/16/24 Ordered By: Ramiro Pairsh Diet: Advance to usual diet Activity on Discharge: Use Splints or Immobilizers Stand Alone Forms: Patient Portal Discharge page Print Language: Faroese Care Plan Goals: treat infection to left ankle Health Concerns: Osteomylitis of the left ankle Plan of Treatment: Keep splint clean, dry, and intact Elevate throughout the day Do not bathe or shower--keep splint dry VNA services for IV daptomycin and PICC line care Call [facility] orthopedics with any questions or concerns. Follow up with orthopedics in 7-10 days post op Assessment: stable for discharge
[2024-09-16] MEDS: DAPTOmycin 600 MG in 0.9 % Sodium Chloride 50 ML 100 MG IV (15:16)
[2024-09-16] MEDS: 0.9 % Sodium Chloride Flush 10 ML SYRINGE IVFLUSH (15:23)
[2024-09-16 15:24] VITALS: BP 119/65; PULSE 87; RESP 18; TEMP 36.1; O2SAT 99
== END 2024-09-16 16:49 | disposition home health service (06) | DRG 496 ==
LOC: HO.ED 13:46 → HO.EDOVER 17:56 → HO.S3 09-12 08:03
PROVIDERS: Orthopaedic Surgery; Physician Assistant; Admitting Provider Physician Assistant; Emergency Provider Emergency Medicine Emergency Medical Services; PCP Family Medicine; Visit Provider Physician Assistant
PROC: 0QPK04Z Removal of Internal Fixation Device from Left Fibula, Open Approach (ICD-10-PCS; principal; 2024-09-13 14:40)
DX: T84.625A Infection and inflammatory reaction due to internal fixation device of left fibula, initial encounter (principal); M86.9 Osteomyelitis, unspecified; Z20.822 Contact with and (suspected) exposure to COVID-19; J45.909 Unspecified asthma, uncomplicated; Z79.899 Other long term (current) drug therapy
CPT/HCPCS: 36415; 36573; 73701; 80048; 80053; 83605; 84702; 85025; 85610; 85652; 85730; 86140; 87040; 87070; 87147; 87205; 87637; 97110; 97116; 97161; 97165; 99285; C1751; J0131; J0736; J0878; J1171; J1885; J2003; J2250; J2270; J2704; J2795; J3010; Q9967

== ENCOUNTER → 2024-09-11 13:41 | Outpatient (BNV) | payer OTHER, SELFPAY | PROVIDERS: Emergency Provider Emergency Medicine Emergency Medical Services; PCP Family Medicine; Visit Provider Radiology Diagnostic Radiology | DX: R22.42 Localized swelling, mass and lump, left lower limb (principal) | CPT/HCPCS: 73701 ==

== ENCOUNTER 2024-09-11 17:48 | Outpatient (BNV) | payer OTHER, SELFPAY | END 2024-09-15 08:39 | PROVIDERS: Admitting Provider Physician Assistant; Emergency Provider Emergency Medicine Emergency Medical Services; PCP Family Medicine; Visit Provider Radiology Diagnostic Radiology | DX: M86.172 Other acute osteomyelitis, left ankle and foot (principal) | CPT/HCPCS: 36573 ==

== ENCOUNTER → 2024-09-11 17:48 | Outpatient (BNV) | payer OTHER, SELFPAY | PROVIDERS: Admitting Provider Physician Assistant; Emergency Provider Emergency Medicine Emergency Medical Services; PCP Family Medicine; Visit Provider Internal Medicine | DX: M86.9 Osteomyelitis, unspecified (principal); Z98.890 Other specified postprocedural states | CPT/HCPCS: 99232; 99499 ==

== ENCOUNTER → 2024-09-11 17:48 | Outpatient (BNV) | payer OTHER, SELFPAY | PROVIDERS: Admitting Provider Physician Assistant; Emergency Provider Emergency Medicine Emergency Medical Services; PCP Family Medicine; Visit Provider Orthopaedic Surgery | DX: M86.9 Osteomyelitis, unspecified (principal); Z98.890 Other specified postprocedural states | CPT/HCPCS: 20680; 99024 ==

== ENCOUNTER 2024-09-20 10:00 | Outpatient (REF) | payer OTHER, SELFPAY ==
[2024-09-20 11:12] LABS: Hematocrit 33.1 % (37.0-47.0); Hemoglobin 10.1 g/dl (12.0-16.0); Mean Corpuscular HGB Conc 30.5 g/dl (31.0-35.0); Mean Corpuscular Hemoglobin 21.7 pg (27.0-33.0); Mean Corpuscular Volume 71.2 fL (80.0-98.0); NRBC Abs Auto 0.000 X10*3/uL (0.0-0.012); NRBC Pct Auto 0.0 /100WBC (0.0-0.2); Platelet Count 491 X10*3/uL (160-400); Red Blood Count 4.65 X10*6/uL (4.20-5.50); White Blood Count 12.7 X10*3/uL (4.8-10.8)
--- OUTSIDE RECORDS SUMMARY | 2024-09-20 11:49 | XMS_ITS | Clinical Summary ---
Author Organization [facility] Address [address] [place] [phone] Phone Care Team Providers Care Armature Winder Repair Helper Name Role Phone Magnus Hampton MD [...] topic Medical Devices Not on file Insurance [facility] NON NSPG PCP SILVER CLARITY CONNECTORCARE [employer] NET PARTIAL [facility] NON NSPG PCP SILVER CLARITY CONNECTORCARE [employer] NET PARTIAL NON NSPG PCP SILVER CLARITY CONNECTORCARE [employer] [facility] NET PARTIAL [facility] SILVER CLARITY CONNECTORCARE [employer] NET PARTIAL [facility] NON NSPG PCP SILVER CLARITY CONNECTORCARE T[employer]ating [facility] NET PARTIAL [facility] NON NSPG PCP SILVER CLARITY CONNECTORCARE [employer] NET PARTIAL [employer] NON NSPG PCP SILVER CLARITY CONNECTORCARE [employer] NET PARTIAL [employer] NON NSPG PCP SILVER CLARITY CONNECTORCARE [employer] NET PARTIAL [employer] NON NSPG PCP SILVER [employer]ARITY CONNECTORCARE Member Subscriber Plan / Payer (Ef fective 2019-Present) Name:Nedra Cardona Relation to Subscriber:Self Name:Nedra Cardona Payer ID:[id number] Type:HMO Address: [address] SAFETY NET PARTIAL Care Teams Armature Winder Repair Helper Relationship Specialty Start Date End Date Magnus Hampton MD [address] [place] [address] PCP - General 03/29/19 Additional Source Comments The information contained in this document represents components of the legal health record. It is not the complete legal health record.[facility]
--- OUTSIDE RECORDS SUMMARY | 2024-09-20 11:49 | XMS_ITS | Clinical Summary ---
Author Organization [facility] ity Address [address] [place] [address] Care Team Providers Care Residential Energy Auditor Name Role Phone Magnus Hampton MD Primary [...] complete this topic RSV Immunization Patients Un romna 20 months Aged Out No longer eligible b ased on patient's age to complete this topic Varicella Vaccines Aged Out No longer eligible based on patient's age to complete this topic Care Teams Residential Energy Auditor Relationship Specialty Start Date End Date Magnus Hampton MD [address] [place] [address] Dr Salud [place] PCP - General 03/16/22
[2024-09-20 11:52] LABS: Atypical Lymph Absolute Manual 0.1 x10*3/uL; Atypical Lymphs Percent Manual 1 % (0-6); Band Neutrophils Percent 3 % (3-5); Basophils Abs Manual 0.1 X10*3/uL (0.0-0.2); Basophils Percent Manual 1 % (0-2); Eosinophils Absolute Manual 0.5 X10*3/uL (0.0-0.4); Eosinophils Percent Manual 4 % (0-4); Lymphocytes Absolute Manual 2.5 X10*3/uL (1.2-4.9); Lymphocytes Percent Manual 20 % (20-40); Metamyelocytes Absolute 0.5 X10*3/uL; Metamyelocytes Percent 4 %; Monocytes Absolute Manual 0.5 X10*3/uL (0.1-1.2); Monocytes Percent Manual 4 % (2-11); Myelocytes Absolute 0.1 X10*/uL; Myelocytes Percent 1 %; Neutrophils Absolute Manual 8.3 X10*3/uL (2.0-8.3); Neutrophils Percent Manual 62 % (45-73)
[2024-09-20 11:54] LABS: Large Platelet PRESENT; Ovalocytes 1+ (5-14) /OIF; RBC Morphology NOTED
[2024-09-20 12:14] LABS: Anion Gap 15 (12-20); Blood Urea Nitrogen 14 mg/dL (9-16); Calcium 9.7 mg/dL (8.4-10.2); Carbon Dioxide 27 mmol/L (22-29); Chloride 103 mmol/L (96-108); Estimated Glomerular Filt Rate > 60; Potassium 4.1 mmol/L (3.3-5.1); Sodium 141 mmol/L (135-145)
== END 2024-09-20 10:01 | disposition home or self-care (01) ==
LOC: HO.HVNA 10:00
PROVIDERS: Visit Provider Internal Medicine
DX: Z47.89 Encounter for other orthopedic aftercare (principal); M86.9 Osteomyelitis, unspecified
CPT/HCPCS: 36415; 80048; 85007; 85027

== ENCOUNTER 2024-09-22 09:32 | Outpatient (REF) | payer OTHER, SELFPAY ==
--- NOTE | ~2024-09-22 | XR_ITS ---
EXAMINATION: XR ANKLE, LEFT CLINICAL INFORMATION: M25.572 - Pain in left ankle and joints of left foot COMPARISON: Numerous priors, most recently 09/07/2024. TECHNIQUE: AP, lateral, and mortise views of the left ankle. FINDINGS: There has been removal of fibular lateral plate and screws. There are screw tracks present. Lateral malleolar fracture has largely healed. Fracture lines are not well seen. There is periostitis with new bone formation present. The mortise remains intact. Mild periarticular osteopenia remains. The talar dome is intact. The subtalar joints and calcaneus appear intact. There is mild soft tissue swelling laterally at the surgical site. XR/XR ankle LT min 3V IMPRESSION: 1. Interval removal of lateral plate and screw fixation. 2. Essentially healed fracture of the lateral malleolus. Electronically signed by: Prosper Fajardo MD 09/22/2024 10:48 AM EDT
--- OUTSIDE RECORDS SUMMARY | 2024-09-22 09:58 | XMS_ITS | Clinical Summary ---
Author Organization [facility] ity Address [address] [place] [address] Care Team Providers Care Clinical Rn Name Role Phone Magnus Hampton MD Primary [...] age to complete this topic Care Teams Clinical Rn Relationship Specialty Start Date End Date Magnus Hampton MD [address] [place] [address] Dr Salud [place] PCP - General 03/16/22
--- OUTSIDE RECORDS SUMMARY | 2024-09-22 09:58 | XMS_ITS | Clinical Summary ---
Author Organization [facility] Address [address] [place] [phone] Phone Care Team Providers Care Labourers Name Role Phone Magnus Hampton MD Primary [...] topic Medical Devices Not on file Insurance [facility] NON NSPG PCP SILVER CLARITY CONNECTORCARE [employer] NET PARTIAL [facility] NON NSPG PCP SILVER CLARITY CONNECTORCARE [employer] NET PARTIAL NON NSPG PCP SILVER CLARITY CONNECTORCARE [employer] NET PARTIAL [facility] PCP SILVER CLARITY CONNECTORCARE [employer] NET PARTIAL [facility] NON NSPG PCP SILVER CLARITY CONNECTORCARE [employer] NET PARTIAL [facility] NON NSPG PCP SILVER CLARITY CONNECTORCARE [employer] SAFET[employer] NET PARTIAL [employer] NON NSPG PCP SILVER CLARITY CONNECTORCARE [employer] NET PARTIAL [employer] NON NSPG PCP SILVER CLARITY CONNECTORCARE [employer] NET PARTIAL [employer] NON NSPG PCP S[employer] CONNECTORCARE Member Subscriber Plan / Payer (Ef fective 2019-Present) Name:Nedra Cardona Relation to Subscriber:Self Name:Nedra Cardona Payer ID:[id number] Type:HMO Address: [address] SAFETY NET PARTIAL Care Teams Labourers Relationship Specialty Start Date End Date Magnus Hampton MD [address] [place] [address] PCP - General 03/29/19 Additional Source Comments The information contained in this document represents components of the legal health record. It is not the complete legal health record.[facility]
== END 2024-09-22 09:33 | disposition home or self-care (01) ==
LOC: HO.HOSX 09:32
PROVIDERS: Visit Provider Physician Assistant
DX: Z98.890 Other specified postprocedural states (principal); S82.892D Other fracture of left lower leg, subsequent encounter for closed fracture with routine healing; T81.40XD Infection following a procedure, unspecified, subsequent encounter
CPT/HCPCS: 73610; 99212

== ENCOUNTER 2024-09-22 10:29 | Outpatient (AMB) | payer OTHER, SELFPAY ==
--- NOTE | 2024-09-22 10:38 | MHC.OFFVIS ---
Intake Visit Reasons: PO-Lt ankle removal of hardware I&D NE 09/15/24 Intake Note: Nedra is a 29 year old female who presents today for a post operative visit after undergoing a left ankle removal of hardware, DOS 09/15/[address] Copeland. Patient reports increased pain since Thursday. She describes her discomfort as a shooting pain and pulling pressure. Allergies amoxicillin (AMOXICILLIN) Allergy (Severe, Verified 09/22/24 10:50) anaphylaxis,rash omalizumab (From XOLAIR) Allergy (Severe, Verified 09/22/24 10:50) HIVES AND THROAT CLOSING Penicillins (PENICILLINS) Allergy (Severe, Verified 09/22/24 10:50) Anaphylaxis seafood Allergy (Severe, Verified 09/22/24 10:50) Anaphylaxis cetirizine (From ZYRTEC) Allergy (Intermediate, Verified 09/22/24 10:50) SHORTNESS OF BREATH vancomycin (VANCOMYCIN) Allergy (Intermediate, Verified 09/22/24 10:50) RASH, itching grass pollen Allergy (Mild, Verified 09/22/24 10:50) Hives animal dander Allergy (Unknown, Verified 09/22/24 10:50) HIVES loratadine (LORATADINE) Allergy (Unknown, Verified 09/22/24 10:50) THROAT SWELLING, hives Medication List - Last Reconciled 09/22/24 by Med Prince PA-C acetaminophen 650 mg (2 x 325 mg) PO Q8H PRN 30 days albuterol sulfate 90 mcg/actuation (Ventolin HFA) 1 inh inhalation QID PRN aspirin 325 mg PO BID 30 days daptomycin 600 mg IV Q24H diazepam (Valium) 2 mg PO BID PRN docusate sodium 100 mg PO BID 7 days ibuprofen 200 mg PO Q6H PRN [Kneeling Scooter As directed] oxycodone 5 mg PO Q4H PRN 7 days HPI HPI PO-Lt ankle removal of hardware I&D NE 09/15/24: Details: 29-year-old female returns to the office today status post left ankle removal of hardware on 09/15/2024. The patient is nonweightbearing on the left lower extremity using a night splint. She also has her PICC line in place and receiving daily antibiotics. 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 Resolving swelling. No erythema. No drainage. Pulses are present. Sensation intact. Results Reviewed Results Reviewed: X-rays of the left ankle obtained in the office today and reviewed by me show successful removal of hardware with healed distal fibular fracture. Assessment & Plan Assessment & Plan (1) S/P hardware removal: Code(s): Z98.890 - Other specified postprocedural states Category: Surgical (2) Closed left ankle fracture: Code(s): S82.892A - Other fracture of left lower leg, initial encounter for closed fracture Category: Medical (3) Complication, postoperative infection: Code(s): T81.40XA - Infection following a procedure, unspecified, initial encounter Category: Medical Plan The sutures will remain intact for another week. She will continue to remain nonweightbearing. I stressed the importance of elevation to help decrease swelling. She will continue with her antibiotics which are being monitored by Dr. Cordova. She states she does have a follow up next week with her. As far as work goes she is returning in a week and a half and I mentioned she can do so as long as she is not standing for long periods of time or doing any lifting or pushing activities. She states she will be doing a desk job only. I will see her back in 1 week for suture removal, sooner if needed. Orders: Orders XR ankle LT min 3V Today M25.572 - Pain in left ankle and joints of left foot Coding Level of Care Code Global (76364) Diagnoses S/P hardware removal Z98.890 Closed left ankle fracture S82.892A Complication, postoperative infection T81.40XA
== END 2024-09-22 11:27 | disposition home or self-care (01) ==
LOC: HO.HOS 10:30
PROVIDERS: PCP Family Medicine; Visit Provider Physician Assistant
DX: Z98.890 Other specified postprocedural states (principal); S82.892A Other fracture of left lower leg, initial encounter for closed fracture; T81.40XA Infection following a procedure, unspecified, initial encounter
CPT/HCPCS: 99024

== ENCOUNTER → 2024-09-22 10:33 | Outpatient (BNV) | payer OTHER, SELFPAY | PROVIDERS: Visit Provider Radiology Diagnostic Radiology | DX: M25.572 Pain in left ankle and joints of left foot (principal) | CPT/HCPCS: 73610 ==

== ENCOUNTER 2024-09-27 11:30 | Outpatient (REF) | payer OTHER, SELFPAY ==
[2024-09-27 12:26] LABS: MANUAL DIFF FLAG NO
[2024-09-27 12:42] LABS: Hematocrit 32.0 % (37.0-47.0); Hemoglobin 10.1 g/dl (12.0-16.0); Imm Gran Abs Auto 0.03 X10*3/uL (0.00-0.03); Imm Gran Pct Auto 0.3 % (0.0-0.4); Lymphocytes Absolute Auto 1.9 X10*3/uL (1.2-4.9); Mean Corpuscular HGB Conc 31.6 g/dl (31.0-35.0); Mean Corpuscular Hemoglobin 22.2 pg (27.0-33.0); Mean Corpuscular Volume 70.5 fL (80.0-98.0); NRBC Abs Auto 0.000 X10*3/uL (0.0-0.012); NRBC Pct Auto 0.0 /100WBC (0.0-0.2); Platelet Count 303 X10*3/uL (160-400); Red Blood Count 4.54 X10*6/uL (4.20-5.50); White Blood Count 9.2 X10*3/uL (4.8-10.8)
[2024-09-27 12:59] LABS: Anion Gap 15 (12-20); Blood Urea Nitrogen 15 mg/dL (9-16); Calcium 9.2 mg/dL (8.4-10.2); Carbon Dioxide 26 mmol/L (22-29); Chloride 104 mmol/L (96-108); Estimated Glomerular Filt Rate > 60; Potassium 4.0 mmol/L (3.3-5.1); Sodium 141 mmol/L (135-145)
--- OUTSIDE RECORDS SUMMARY | 2024-09-27 13:10 | XMS_ITS | Clinical Summary ---
Author Organization [facility] ity Address [address] [place] [address] Care Team Providers Care Licensed Nuclear Control Room Operator Name Role Phone Magnus Hampton MD Primary [...] age to complete this topic Care Teams Licensed Nuclear Control Room Operator Relationship Specialty Start Date End Date Magnus Hampton MD [address] [place] [address] Dr Salud [place] PCP - General 03/16/22
--- OUTSIDE RECORDS SUMMARY | 2024-09-27 13:10 | XMS_ITS | Clinical Summary ---
Author Organization [facility] Address [address] [place] [phone] Phone Care Team Providers Care Equity Trader Name Role Phone Magnus Hampton MD Primary [...] topic Medical Devices Not on file Insurance [facility] NON NSPG PCP SILVER CLARITY CONNECTORCARE [employer] NET PARTIAL [facility] NON NSPG PCP SILVER CLARITY CONNECTORCARE [employer] NET PARTIAL NON NSPG PCP SILVER CLARITY CONNECTORCARE [employer] [facility] NET PARTIAL [facility] SILVER CLARITY CONNECTORCARE [employer] NET PARTIAL [facility] NON NSPG PCP SILVER CLARITY CONNECTORCARE [employer] [facility] NET PARTIAL [facility] NON NSPG PCP SILVER CLARITY CONNECTORCARE [employer] SAFETY NET PARTIAL [employer] NON NSPG PCP SILVER CLARITY CONNECTORCARE [employer] SAFETY NET PARTIAL [employer] NON NSPG PCP SILVER CLARITY CONNECTORCARE [employer] SAFETY NET PARTIAL [employer] NON NSPG PCP SILVER [employer] CONNECTORCARE Member Subscriber Plan / Payer (Ef fective 2019-Present) Name:Nedra Cardona Relation to Subscriber:Self Name:Nedra Cardona Payer ID:[id number] Type:HMO Address: [address] SAFETY NET PARTIAL Care Teams Equity Trader Relationship Specialty Start Date End Date Magnus Hampton MD [address] [place] [address] PCP - General 03/29/19 Additional Source Comments The information contained in this document represents components of the legal health record. It is not the complete legal health record.[facility]
== END 2024-09-27 11:31 | disposition home or self-care (01) ==
LOC: HO.HVNA 11:30
PROVIDERS: Visit Provider Internal Medicine
DX: T84.625A Infection and inflammatory reaction due to internal fixation device of left fibula, initial encounter (principal); M86.9 Osteomyelitis, unspecified
CPT/HCPCS: 36415; 80048; 85025

== ENCOUNTER 2024-09-28 12:49 | Outpatient (AMB) | payer OTHER, SELFPAY ==
--- NOTE | 2024-09-28 12:59 | A.OFFVIS_ITS ---
Intake Visit Reasons: PO LT ankle BRIANA I&D 09/15/24 NE, see comments Intake Note: Nedra is a 29 year old female who presents today for a post operative visit after undergoing a left ankle removal of hardware, DOS 09/15/[address] Copeland. Patient reports over the weekend she was experiencing burning pain. S tates bandages were changed by [facility] and feels everything is going good and her discomfort is normal. Allergies amoxicillin (AMOXICILLIN) Allergy (Severe, Verified 09/28/24 13:02) anaphylaxis,rash omalizumab (From XOLAIR) Allergy (Severe, Verified 09/28/24 13:02) HIVES AND THROAT CLOSING Penicillins (PENICILLINS) Allergy (Severe, Verified 09/28/24 13:02) Anaphylaxis seafood Allergy (Severe, Verified 09/28/24 13:02) Anaphylaxis cetirizine (From ZYRTEC) Allergy (Intermediate, Verified 09/28/24 13:02) SHORTNESS OF BREATH vancomycin (VANCOMYCIN) Allergy (Intermediate, Verified 09/28/24 13:02) RASH, itching grass pollen Allergy (Mild, Verified 09/28/24 13:02) Hives animal dander Allergy (Unknown, Verified 09/28/24 13:02) HIVES loratadine (LORATADINE) Allergy (Unknown, Verified 09/28/24 13:02) THROAT SWELLING, hives HPI HPI PO LT ankle BRIANA I&D 09/15/24 NE, see comments: Details: 29-year-old female returns to the office today for a follow-up left ankle removal of hardware with I and D on 09/13/[address] Copeland. She was concerned for some burning sensation she felt around the incision. Otherwise she is doing well. She continues with her antibiotics and has follow up with Dr. Cordova this coming Thursday. 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 No significant swelling. No erythema. She does have decreased sensation over the lateral aspect of the ankle extending into the tibia. Assessment & Plan Assessment & Plan (1) Closed left ankle fracture: Code(s): S82.892A - Other fracture of left lower leg, initial encounter for closed fracture Category: Medical Plan: Sutures were removed today. Steri-Strips applied. She will use the tall walking boot for 2 weeks to weightbear as tolerated. I did stress the importance of applying a padded protective layer to the incision area when she is wearing the boot to avoid skin breakdown. When she is resting she can remove the boot. When she is sleeping she does not need to use the blue boot unless her foot goes into plantar flexion. She will also begin a physical therapy to work on gentle stretching and motion exercises. She will keep the incision area dry for another week. She will continue with antibiotics. She will see me back in 2 weeks for wound check. She will also return to work with limitations of working out of 1 room only. Orders: Orders PT Evaluation and Treatment Today S82.892A - Other fracture of left lower leg, initial encounter for closed fracture Coding Level of Care Code Global (32486) Diagnoses Closed left ankle fracture S82.892A
--- OUTSIDE RECORDS SUMMARY | 2024-09-28 13:19 | XMS_ITS | Clinical Summary ---
Author Organization [facility] ity Address [address] [place] [address] Care Team Providers Care Sociology Instructor Name Role Phone Magnus Hampton MD Primary [...] age to complete this topic Care Teams Sociology Instructor Relationship Specialty Start Date End Date Magnus Hampton MD [address] [place] [address] Dr Salud [place] PCP - General 03/16/22
--- OUTSIDE RECORDS SUMMARY | 2024-09-28 13:19 | XMS_ITS | Clinical Summary ---
Author Organization [facility] Address [address] [place] [id number] Phone Care Team Providers Care Retail Banker Name Role Phone Magnus Hampton MD Primary [...] topic Medical Devices Not on file Insurance [facility] NON NSPG PCP [employer] NET PARTIAL [facility] NON NSPG PCP S[employer] NET PARTIAL NON NSPG PCP SILVER [employer] CONNECTORC[employer] [facility] NET PARTIAL [facility] S[employer] CONNECTORC[employer] Firm[employer] NET PARTIAL [facility] NON NSPG PCP S[employer] CONNE[employer] [facility] NET PARTIAL [facility] NON NSPG PCP [employer] NET PARTIAL [employer] NON NSPG PCP S[employer] NET PARTIAL [employer] NON NSPG PCP S[employer] NET PARTIAL [employer] NON NSPG PCP [employer] Member Subscriber Plan / Payer (Ef fective 2019-Present) Name:Nedra Cardona Relation to Subscriber:Self Name:Nedra Cardona Payer ID:[id number] Type:HMO Address: [address] SAFETY NET PARTIAL Care Teams Retail Banker Relationship Specialty Start Date End Date Magnus Hampton MD [address] [place] [address] PCP - General 03/29/19 Additional Source Comments The information contained in this document represents components of the legal health record. It is not the complete legal health record.[facility]
== END 2024-09-28 13:40 | disposition home or self-care (01) ==
LOC: HO.HOS 12:50
PROVIDERS: Visit Provider Physician Assistant
DX: S82.892A Other fracture of left lower leg, initial encounter for closed fracture (principal)
CPT/HCPCS: 99024

== ENCOUNTER → 2024-09-28 12:49 | Outpatient (BNVA) | payer OTHER, SELFPAY | PROVIDERS: Visit Provider Physician Assistant | DX: Z48.02 Encounter for removal of sutures (principal); S82.892A Other fracture of left lower leg, initial encounter for closed fracture; Z98.890 Other specified postprocedural states | CPT/HCPCS: 99212 ==

== ENCOUNTER 2024-09-30 09:15 | Outpatient (AMB) | payer OTHER, SELFPAY ==
--- OUTSIDE RECORDS SUMMARY | 2024-09-30 09:29 | XMS_ITS | Clinical Summary ---
Author Organization [facility] Address [address] [place] [address] Phone Care Team Providers Care Manager Business Planning Name Role Phone Magnus Hampton MD Primary [...] topic Medical Devices Not on file Insurance [facility] NON NSPG PCP SILVER [employer] CONNE[employer]CARE [employer] NET PARTIAL [facility] NON NSPG PCP S[employer] CONNE[employer] NET PARTIAL NON NSPG PCP SIL[employer] CONNECTORCARE [employer] [facility] NET PARTIAL [facility] NON [facility] P[facility] SILVER [employer]ITY CONNECTORCARE [employer] NET PARTIAL [facility] NON NSPG PCP S[employer] CONNECTOR[employer] [facility] NET PARTIAL [facility] NON NSPG PCP S[employer] CONNECTOR[employer] NET PARTIAL [employer] NON NSPG PCP S[employer] CONNECTORC[employer] NET PARTIAL [place] [employer] NON NSPG PCP S[employer] CONNE[employer] NET PARTIAL [employer] NON NSPG PCP [employer] Member Subscriber Plan / Payer (Ef fective 2019-Present) Name:Nedra Cardona Relation to Subscriber:Self Name:Nedra Cardona Payer ID:[id number] Type:HMO Address: [address] SAFETY NET PARTIAL Care Teams Manager Business Planning Relationship Specialty Start Date End Date Magnus Hampton MD [address] [place] [address] PCP - General 03/29/19 Additional Source Comments The information contained in this document represents components of the legal health record. It is not the complete legal health record.[facility]
[2024-09-30 13:58] VITALS: PULSE 115; O2SAT 99
--- NOTE | 2024-09-30 13:58 | MHC.OFFVIS ---
Vital Signs 09/30/24 13:58 Pulse 115 H Pulse Source Pulse Oximeter Pulse Oximetry (%) 99 Oxygen Delivery Method Room Air Intake Visit Reasons: C Reffer/ Left ankle Allergies amoxicillin (AMOXICILLIN) Allergy (Severe, Verified 09/30/24 13:58) anaphylaxis,rash omalizumab (From XOLAIR) Allergy (Severe, Verified 09/30/24 13:58) HIVES AND THROAT CLOSING Penicillins (PENICILLINS) Allergy (Severe, Verified 09/30/24 13:58) Anaphylaxis seafood Allergy (Severe, Verified 09/30/24 13:58) Anaphylaxis cetirizine (From ZYRTEC) Allergy (Intermediate, Verified 09/30/24 13:58) SHORTNESS OF BREATH vancomycin (VANCOMYCIN) Allergy (Intermediate, Verified 09/30/24 13:58) RASH, itching grass pollen Allergy (Mild, Verified 09/30/24 13:58) Hives animal dander Allergy (Unknown, Verified 09/30/24 13:58) HIVES loratadine (LORATADINE) Allergy (Unknown, Verified 09/30/24 13:58) THROAT SWELLING, hives HPI HPI C Reffer/ Left ankle: Details: She is week 2/6 IV Vancomycin She has no complaints and wound is healing Creatinine is normal She has PICC line irriatation and switched coverings. She does pick at skin for long time. 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 Cognitive needs: No Hearing needs: No Vision needs: No Review of Systems Const All systems reviewed & are unremarkable except as noted in HPI and below Physical Exam Vital Signs: Last Vital Signs Pulse 115 H 09/30/24 13:58 Pulse Ox 99 09/30/24 13:58 Oxygen Delivery Method Room Air 09/30/24 13:58 Const General: cooperative Orientation/consciousness: patient oriented x3 HEENT Head: Yes normal to inspection Mouth: Normal oral and palatal mucosa present Eyes General: appearance normal, both eyes and all related structures Pupils: Equal, round and reactive pupils present Resp Effort & Inspection: normal respiratory effort Cardio Rate: regular rate Rhythm: regular rhythm GI Palpation (GI): Soft to palpation and nontender General: Yes no CVA tenderness Back/Spine/Pelvis Back: no CVA tenderness Skin General skin exam: no rashes or lesions noted Neuro General: patient oriented x3 Cranial nerves: Yes CN's II-XII intact bilaterally and Yes Equal, round and reactive pupils present Extrem General: Yes normal to inspection Psych Appearance: grossly normal Assessment & Plan Assessment & Plan (1) Osteomyelitis of ankle: Comment: She has Group A strep but healing Code(s): M86.9 - Osteomyelitis, unspecified Category: Medical Qualifiers: Laterality: left Plan: Would give six weeks IV Vancomycin. Check Vancomycin trough weekly. See in two weeks. Coding Level of Care Code Est Pt Level 3 (19523) Diagnoses Osteomyelitis of ankle M86.9 Laterality: left
== END 2024-09-30 14:08 | disposition home or self-care (01) ==
LOC: HO.HID 09:15
PROVIDERS: PCP Family Medicine; Visit Provider Internal Medicine
DX: M86.9 Osteomyelitis, unspecified (principal)
CPT/HCPCS: 99213

== ENCOUNTER → 2024-09-30 09:15 | Outpatient (BNVA) | payer OTHER, SELFPAY | PROVIDERS: PCP Family Medicine; Visit Provider Internal Medicine | DX: M86.271 Subacute osteomyelitis, right ankle and foot (principal) | CPT/HCPCS: 99212 ==

== ENCOUNTER → 2024-09-30 23:59 | Outpatient (BNV) | payer OTHER, SELFPAY | PROVIDERS: PCP Family Medicine; Visit Provider Family Medicine | DX: T84.625A Infection and inflammatory reaction due to internal fixation device of left fibula, initial encounter (principal); Z45.2 Encounter for adjustment and management of vascular access device; J45.909 Unspecified asthma, uncomplicated | CPT/HCPCS: G0180 ==

== ENCOUNTER 2024-10-04 16:15 | Outpatient (REF) | payer OTHER, SELFPAY ==
[2024-10-04 17:23] LABS: Imm Gran Abs Auto 0.05 X10*3/uL (0.00-0.03); Imm Gran Pct Auto 0.6 % (0.0-0.4); MANUAL DIFF FLAG SCAN; NRBC Abs Auto 0.000 X10*3/uL (0.0-0.012); NRBC Pct Auto 0.0 /100WBC (0.0-0.2); SCAN SMEAR FLAG 1
[2024-10-04 17:24] LABS: Hematocrit 29.4 % (37.0-47.0); Hemoglobin 9.3 g/dl (12.0-16.0); Lymphocytes Absolute Auto 2.1 X10*3/uL (1.2-4.9); Mean Corpuscular HGB Conc 31.6 g/dl (31.0-35.0); Mean Corpuscular Hemoglobin 22.5 pg (27.0-33.0); Mean Corpuscular Volume 71.2 fL (80.0-98.0); PLT CLUMP 1; Red Blood Count 4.13 X10*6/uL (4.20-5.50)
[2024-10-04 17:26] LABS: Anion Gap 14 (12-20); Blood Urea Nitrogen 12 mg/dL (9-16); Calcium 8.7 mg/dL (8.4-10.2); Carbon Dioxide 23 mmol/L (22-29); Chloride 108 mmol/L (96-108); Estimated Glomerular Filt Rate > 60; Potassium 3.8 mmol/L (3.3-5.1); Sodium 141 mmol/L (135-145)
[2024-10-04 17:28] LABS: PLT ABN DIST 1; White Blood Count 8.1 X10*3/uL (4.8-10.8)
--- OUTSIDE RECORDS SUMMARY | 2024-10-04 17:54 | XMS_ITS | Clinical Summary ---
Author Organization [facility] ity Address [address] [place] [address] Care Team Providers Care Edge Glue Machine Tender Name Role Phone Magnus Hampton MD Primary [...] age to complete this topic Care Teams Edge Glue Machine Tender Relationship Specialty Start Date End Date Magnus Hampton MD [address] [place] [address] Dr Salud [place] PCP - General 03/16/22
--- OUTSIDE RECORDS SUMMARY | 2024-10-04 17:54 | XMS_ITS | Clinical Summary ---
Author Organization [facility] Address [address] [place] [address] Phone Care Team Providers Care Boiler Tube Reamer Name Role Phone Magnus Hampton MD Primary [...] topic Medical Devices Not on file Insurance [facility] NON NSPG PCP [employer]IL[employer] CONNE[employer] Skin Care NET PARTIAL [facility] NON NSPG PCP SIL[employer] CONNECTORC[employer] Skin Care NET PARTIAL NON NSPG PCP SILVER CLAR[employer] CONNECTORCARE [employer] [facility] NET PARTIAL [facility] P[facility] SILVER CLARITY CONNECTORCARE [employer] Skin Care NET PARTIAL [facility] NON NSPG PCP S[employer] CONNECTORC[employer] [facility] NET PARTIAL [facility] NON NSPG PCP S[employer] CONNECTORC[employer] NET PARTIAL [employer] NON NSPG PCP SILVER [employer]ARITY CONNECTORCARE [employer] SAFET[employer] NET PARTIAL [employer] NON NSPG PCP S[employer] CONNECTORC[employer] NET PARTIAL [employer] NON NSPG PCP [employer] Member Subscriber Plan / Payer (Ef fective 2019-Present) Name:Nedra Cardona Relation to Subscriber:Self Name:Nedra Cardona Payer ID:[id number] Type:HMO Address: [address] SAFETY NET PARTIAL Care Teams Boiler Tube Reamer Relationship Specialty Start Date End Date Magnus Hampton MD [address] [place] [address] PCP - General 03/29/19 Additional Source Comments The information contained in this document represents components of the legal health record. It is not the complete legal health record.[facility]
[2024-10-04 19:13] LABS: Platelet Count 195 X10*3/uL (160-400)
== END 2024-10-04 16:16 | disposition home or self-care (01) ==
LOC: HO.HVNA 16:15
PROVIDERS: Visit Provider Internal Medicine
DX: M86.9 Osteomyelitis, unspecified (principal); T84.625A Infection and inflammatory reaction due to internal fixation device of left fibula, initial encounter
CPT/HCPCS: 36415; 80048; 85025

== ENCOUNTER 2024-10-11 18:01 | Outpatient (REF) | payer OTHER, SELFPAY ==
--- OUTSIDE RECORDS SUMMARY | 2024-10-11 18:05 | XMS_ITS | Clinical Summary ---
Author Organization [facility] ity Address [address] [place] [address] Care Team Providers Care Physiatrist Name Role Phone Magnus Hampton MD Primary [...] age to complete this topic Care Teams Physiatrist Relationship Specialty Start Date End Date Magnus Hampton MD [address] [place] [address] Dr Salud [place] PCP - General 03/16/22
--- OUTSIDE RECORDS SUMMARY | 2024-10-11 18:05 | XMS_ITS | Clinical Summary ---
Author Organization [facility] Address [address] [place] [address] Phone Care Team Providers Care Stencil Maker Name Role Phone Magnus Hampton MD Primary [...] topic Medical Devices Not on file Insurance [facility] NON NSPG PCP SILVER [employer]ITY CONNECTORCARE Guide NET PARTIAL [facility] NON NSPG PCP SILVER [employer]ARITY CONNECTORCARE Guide NET PARTIAL NON NSPG PCP SILVER CLARITY CONNECTORCARE [employer] [facility] NET PARTIAL [facility] NON [facility] PCP SILVER CLARITY CONNECTORCARE Guide NET PARTIAL [facility] NON NSPG PCP S[employer] CONNECTORC[employer] [place] [facility] NET PARTIAL [facility] NON NSPG PCP SIL[employer] CONNECTORC[employer] [place] [employer] NET PARTIAL [employer] NON NSPG PCP SILVER [employer]ITY CONNECTORCARE [place] [employer] NET PARTIAL [place] NON NSPG PCP S[employer] CONNECTORC[employer] [place] [employer] NET PARTIAL [employer] NON NSPG PCP [employer] Member Subscriber Plan / Payer (Ef fective 2019-Present) Name:Nedra Cardona Relation to Subscriber:Self Name:Nedra Cardona Payer ID:[id number] Type:HMO Address: [address] SAFETY NET PARTIAL Care Teams Stencil Maker Relationship Specialty Start Date End Date Magnus Hampton MD [address] [place] [address] PCP - General 03/29/19 Additional Source Comments The information contained in this document represents components of the legal health record. It is not the complete legal health record.[facility]
[2024-10-11 18:45] LABS: Mean Corpuscular HGB Conc 31.6 g/dl (31.0-35.0); Mean Corpuscular Hemoglobin 22.4 pg (27.0-33.0); Mean Corpuscular Volume 70.9 fL (80.0-98.0); NRBC Abs Auto 0.000 X10*3/uL (0.0-0.012); NRBC Pct Auto 0.0 /100WBC (0.0-0.2); SCAN SMEAR FLAG 1
[2024-10-11 18:47] LABS: Hematocrit 30.4 % (37.0-47.0); Hemoglobin 9.6 g/dl (12.0-16.0); Imm Gran Abs Auto 0.03 X10*3/uL (0.00-0.03); Imm Gran Pct Auto 0.4 % (0.0-0.4); Lymphocytes Absolute Auto 2.3 X10*3/uL (1.2-4.9); MANUAL DIFF FLAG SCAN; Platelet Count 200 X10*3/uL (160-400); Red Blood Count 4.29 X10*6/uL (4.20-5.50); White Blood Count 8.4 X10*3/uL (4.8-10.8)
[2024-10-11 18:54] LABS: PLT ABN DIST 1
[2024-10-11 19:14] LABS: Anion Gap 13 (12-20); Blood Urea Nitrogen 16 mg/dL (9-16); Calcium 8.9 mg/dL (8.4-10.2); Carbon Dioxide 23 mmol/L (22-29); Chloride 107 mmol/L (96-108); Estimated Glomerular Filt Rate > 60; Potassium 4.0 mmol/L (3.3-5.1); Sodium 139 mmol/L (135-145)
== END 2024-10-11 18:02 | disposition home or self-care (01) ==
LOC: HO.HVNA 18:01
PROVIDERS: Visit Provider Internal Medicine
DX: R42 Dizziness and giddiness (principal)
CPT/HCPCS: 36415; 80048; 85025

== ENCOUNTER 2024-10-14 11:30 | Outpatient (AMB) | payer OTHER, SELFPAY ==
--- NOTE | 2024-10-14 11:34 | A.OFFVIS_ITS ---
Vital Signs 3 10/14/24 11:35 BP 112/60 Pulse 86 Pulse Oximetry (%) 98 Intake Visit Reasons: 2 weeks f/u Allergies amoxicillin (AMOXICILLIN) Allergy (Severe, Verified 10/14/24 12:47) anaphylaxis,rash omalizumab (From XOLAIR) Allergy (Severe, Verified 10/14/24 12:47) HIVES AND THROAT CLOSING Penicillins (PENICILLINS) Allergy (Severe, Verified 10/14/24 12:47) Anaphylaxis seafood Allergy (Severe, Verified 10/14/24 12:47) Anaphylaxis cetirizine (From ZYRTEC) Allergy (Intermediate, Verified 10/14/24 12:47) SHORTNESS OF BREATH vancomycin (VANCOMYCIN) Allergy (Intermediate, Verified 10/14/24 12:47) RASH, itching grass pollen Allergy (Mild, Verified 10/14/24 12:47) Hives animal dander Allergy (Unknown, Verified 10/14/24 12:47) HIVES loratadine (LORATADINE) Allergy (Unknown, Verified 10/14/24 12:47) THROAT SWELLING, hives HPI HPI 2 weeks f/u: Details: Her ankle is healing well. She has finished antibiotics. 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 Cognitive needs: No Hearing needs: No Vision needs: No Review of Systems Const All systems reviewed & are unremarkable except as noted in HPI and below Physical Exam Vital Signs: Last Vital Signs Pulse 86 10/14/24 11:35 BP 112/60 10/14/24 11:35 Pulse Ox 98 10/14/24 11:35 Const Other: General: cooperative Orientation/consciousness: patient oriented x3 HEENT Head: Yes normal to inspection Mouth: Normal oral and palatal mucosa present Eyes General: appearance normal, both eyes and all related structures Pupils: Equal, round and reactive pupils present Resp Effort & Inspection: normal respiratory effort Cardio Rate: regular rate Rhythm: regular rhythm GI Palpation (GI): Soft to palpation and nontender General: Yes no CVA tenderness Back/Spine/Pelvis Back: no CVA tenderness Skin General skin exam: no rashes or lesions noted Neuro General: patient oriented x3 Cranial nerves: Yes CN's II-XII intact bilaterally and Yes Equal, round and reactive pupils present Extrem General: Yes normal to inspection Psych Appearance: grossly normal Assessment & Plan Assessment & Plan (1) Osteomyelitis of ankle: Comment: She has Group A strep but healing Code(s): M86.9 - Osteomyelitis, unspecified Category: Medical Qualifiers: Laterality: left Plan: No further treatment at this time.Plan per Orthopedics. Orders: Orders 2 IR cvc remove any age 0810/14/24 M86.9 - Osteomyelitis, unspecified Coding Level of Care Code Est Pt Level 3 (89926) Diagnoses Osteomyelitis of ankle M86.9 Laterality: left
[2024-10-14 11:35] VITALS: BP 112/60; PULSE 86; O2SAT 98
--- OUTSIDE RECORDS SUMMARY | 2024-10-14 12:30 | XMS_ITS | Clinical Summary ---
Author Organization [facility] ity Address [address] [place] [address] Care Team Providers Care Rail Car Driver Name Role Phone Magnus Hampton MD Primary [...] age to complete this topic Care Teams Rail Car Driver Relationship Specialty Start Date End Date Magnus Hampton MD [address] [place] [address] Dr Salud [place] PCP - General 03/16/22
--- OUTSIDE RECORDS SUMMARY | 2024-10-14 12:30 | XMS_ITS | Clinical Summary ---
Author Organization [facility] Address [address] [place] [address] Phone Care Team Providers Care Senior It Business Analyst Name Role Phone Magnus Hampton MD Primary [...] Devices Not on file Insurance [facility] NON NSPG PCP SILVER CLARITY CONNECTORCARE [employer] NET PARTIAL [facility] NON NSPG PCP SILVER CLARITY CONNECTORCARE [employer] NET PARTIAL NON NSPG PCP SIL[employer]ITY CONNECTOR[employer]ARE [place] NET PARTIAL [facility] NON [facility] PCP SILVER CLARITY CONNECTORCARE [employer] NET PARTIAL [facility] NON NSPG PCP SIL[employer]ITY CONNECTORCARE [place] NET PARTIAL [facility] NON NSPG PCP SILVER CLARITY CONNECTORCARE [place] [employer] NET PARTIAL [employer] NON NSPG PCP SILVER [employer]ITY CONNECTORCARE [place] [employer] NET PARTIAL [employer] NON NSPG PCP SIL[employer]ITY CONNECTORC[employer] [place] [employer] NET PARTIAL [employer] NON NSPG PCP [employer] Member Subscriber Plan / Payer (Ef fective 2019-Present) Name:Nedra Cardona Relation to Subscriber:Self Name:Nedra Cardona Payer ID:[id number] Type:HMO Address: [address] SAFETY NET PARTIAL Care Teams Senior It Business Analyst Relationship Specialty Start Date End Date Magnus Hampton MD [address] [place] [address] PCP - General 03/29/19 Additional Source Comments The information contained in this document represents components of the legal health record. It is not the complete legal health record.[facility]
== END 2024-10-14 11:46 | disposition home or self-care (01) ==
LOC: HO.HID 11:30
PROVIDERS: PCP Family Medicine; Visit Provider Internal Medicine
DX: M86.9 Osteomyelitis, unspecified (principal)
CPT/HCPCS: 99213

== ENCOUNTER → 2024-10-14 11:30 | Outpatient (BNVA) | payer OTHER, MEDICAID, SELFPAY | PROVIDERS: PCP Family Medicine; Visit Provider Internal Medicine | DX: M86.9 Osteomyelitis, unspecified (principal); S82.92XA Unspecified fracture of left lower leg, initial encounter for closed fracture; X58.XXXA Exposure to other specified factors, initial encounter; Y93.9 Activity, unspecified; Y92.9 Unspecified place or not applicable; Y99.9 Unspecified external cause status; Z98.890 Other specified postprocedural states | CPT/HCPCS: 99212 ==

== ENCOUNTER 2024-10-14 12:28 | Outpatient (AMB) | payer OTHER, SELFPAY ==
--- NOTE | 2024-10-14 12:44 | A.OFFVIS_ITS ---
Intake Visit Reasons: PO LT ankle BRIANA I&D 09/15/24 NE Intake Note: Nedra is a 29 year old female who presents today for a post operative visit after undergoing a left ankle removal of hardware, DOS 09/15/[address] Copeland. Patient reports that she continues to have pain. States that she in unable to discontinue crutch use due to the pain. At home she is able to get around with 1 crutch however at work she needs to use both crutches. Allergies amoxicillin (AMOXICILLIN) Allergy (Severe, Verified 10/14/24 12:47) anaphylaxis,rash omalizumab (From XOLAIR) Allergy (Severe, Verified 10/14/24 12:47) HIVES AND THROAT CLOSING Penicillins (PENICILLINS) Allergy (Severe, Verified 10/14/24 12:47) Anaphylaxis seafood Allergy (Severe, Verified 10/14/24 12:47) Anaphylaxis cetirizine (From ZYRTEC) Allergy (Intermediate, Verified 10/14/24 12:47) SHORTNESS OF BREATH vancomycin (VANCOMYCIN) Allergy (Intermediate, Verified 10/14/24 12:47) RASH, itching grass pollen Allergy (Mild, Verified 10/14/24 12:47) Hives animal dander Allergy (Unknown, Verified 10/14/24 12:47) HIVES loratadine (LORATADINE) Allergy (Unknown, Verified 10/14/24 12:47) THROAT SWELLING, hives Medication List - Last Reconciled 10/14/24 by Med Prince PA-C acetaminophen 650 mg (2 x 325 mg) PO Q8H PRN 30 days albuterol sulfate 90 mcg/actuation (Ventolin HFA) 1 inh inhalation QID PRN aspirin 325 mg PO BID 30 days daptomycin 600 mg IV Q24H diazepam (Valium) 2 mg PO BID PRN docusate sodium 100 mg PO BID 7 days ibuprofen 200 mg PO Q6H PRN [Kneeling Scooter As directed] HPI HPI PO LT ankle BRIANA I&D 09/15/24 NE: Details: 29-year-old female returns to the office today for a follow-up removal of hardware and I and D on her left ankle 09/15/[address] Copeland. She met with Dr. Reyes earlier today and the plan is to have her PICC line removed in early October as her antibiotics will be completed. The patient states she still has some discomfort with ambulation and physical therapy but her overall symptoms are improving and her sensation is returning along the lateral aspect of the leg and foot. Denies fever or chills. No other concerns. 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 No significant swelling. No erythema. She does have light sensation intact over the lateral aspect of the ankle extending into the tibia. EHL intact Assessment & Plan Assessment & Plan (1) S/P hardware removal: Code(s): Z98.890 - Other specified postprocedural states Category: Surgical (2) Closed left ankle fracture: Code(s): S82.892A - Other fracture of left lower leg, initial encounter for closed fracture Category: Medical Plan Patient will continue weight-bearing as tolerated with the boot and crutches as needed. She will continue with physical therapy to improve her strength and conditioning. I will send her an ibuprofen prescription to the pharmacy and stressed the importance of using it 3 times a day for the next few weeks to help with her overall discomfort. She was also given an ankle sleeve to wear to help with her swelling and support. I would like to see her back in 6 weeks for re- evaluation, sooner if needed. Coding Level of Care Code Global (02422) Diagnoses S/P hardware removal Z98.890 Closed left ankle fracture S82.947Y
== END 2024-10-14 13:09 | disposition home or self-care (01) ==
LOC: HO.HOS 12:29
PROVIDERS: PCP Family Medicine; Visit Provider Physician Assistant
DX: Z98.890 Other specified postprocedural states (principal); S82.892A Other fracture of left lower leg, initial encounter for closed fracture
CPT/HCPCS: 99024

== ENCOUNTER 2024-11-03 09:39 | Outpatient (REF) | payer OTHER, SELFPAY ==
--- NOTE | ~2024-11-03 | XR_ITS ---
CLINICAL HISTORY: M25.572 - Pain in left ankle and joints of left foot Radiographs of the left ankle, 3 views Comparison: DX/SR - XR ANKLE 3 OR MORE VIEWS LEFT - 09/22/24 10:[address]/SR - CT ANKLE LT W IV CON - 09/11/24 15:07 EDT CR - XR ANKLE LT MIN 3V - 09/10/24 06:33 EDT CR/SR - XR ANKLE LT MIN 3V - 06/02/24 11:00 EDT Findings: There is no acute fracture or dislocation. Removal of the previously seen sideplate and screws in the distal fibula. There are ghost tracts in the region of previously visualized hardware. No cortical destruction or periostitis to indicate osteomyelitis. The ankle mortise is congruent. The joint spaces are preserved without osteophytosis. Trace enthesophyte of the insertion of the Achilles tendon. Soft tissue swelling which is less than on the prior study. Impression: No acute osseous abnormality. Decrease in soft tissue swelling. This document has been electronically signed by: Grace Paul MD on 11/04/2024 15:14:17
--- OUTSIDE RECORDS SUMMARY | 2024-11-04 10:14 | XMS_ITS | Clinical Summary ---
Author Organization [facility] ity Address [address] [place] [address] Care Team Providers Care Latrine Cleaner Name Role Phone Magnus Hampton MD Primary Care Provider [phone] Social History Tobacco Use Types Packs/Day Years [...] Screening 03/22/2023 Depression Screening 02/17/2024 COVID-19 Vaccine (1 - 2023-2 5 season) 2024 Influenza Vaccine (#1) 2024 RSV Immunization Adult Patie nts (1 - 1-dose 75+ series) 01/09/2072 HIB Vaccines Aged Out No longer eligi [...] age to complete this topic Care Teams Latrine Cleaner Relationship Specialty Start Date End Date Magnus Hampton MD [address] [place] [address] Dr Salud MA PCP - General 03/16/22
--- OUTSIDE RECORDS SUMMARY | 2024-11-04 10:14 | XMS_ITS | Clinical Summary ---
Author Organization [facility] Address [address] [address] Phone Care Team Providers Care Room Designer Name Role Phone Magnus Hampton MD Primary [...] WELLSENSE NON NSPG PCP [employer] [facility] PARTIAL WE[employer] NON NSPG PCP [employer] Member Subscriber Plan / Payer (Ef fective 2019-Present) Name:Nedra Cardona Relation to Subscriber:Self Name:Nedra Cardona Payer ID:[id number] Type:[employer] Address: [address] SAFETY NET PARTIAL WELLSENSE NON NSPG PCP [employer] Member Subscriber Plan / Payer (Ef fective 2019-Present) Name:Nedra Cardona Relation to Subscriber:Self Name:Nedra Cardona Payer ID:[id number] Type:[employer] Address: [address] NET PARTIAL WELLSENSE NON NSPG PCP [employer] Member Subscriber Plan / Payer (Ef fective 2019-Present) Name:Nedra Cardona Relation to Subscriber:Self Name:Nedra Cardona Payer ID:[id number] Type:[employer] Address: [address] SAFETY NET PARTIAL WE[employer] NON NSPG PCP [employer] Member Subscriber Plan / Payer (Ef fective 2019-Present) Name:Nedra Cardona Relation to Subscriber:Self Name:Nedra Cardona Payer ID:[id number] Type:[employer] Address: [address] SAFETY NET PARTIAL WE[employer] NON NSPG PCP [employer] SAFETY NET PARTIAL [facility] P[facility] S[employer] SAFETY NET PARTIAL [facility] N[facility] PCP S[employer] SAFETY NET PARTIAL [facility] NON NSP PCP [employer] SAFETY NET PARTIAL Care Teams Room Designer Relationship Specialty Start Date End Date Magnus Hampton MD [address] [place] [address] PCP - General 03/29/19 Additional Source Comments The information contained in this document represents components of the legal health record. It is not the complete legal health record.[facility]
== END 2024-11-03 09:40 | disposition home or self-care (01) ==
LOC: HO.HOSX 09:39
PROVIDERS: Visit Provider Physician Assistant
DX: Z47.89 Encounter for other orthopedic aftercare (principal); S82.892D Other fracture of left lower leg, subsequent encounter for closed fracture with routine healing; X58.XXXD Exposure to other specified factors, subsequent encounter
CPT/HCPCS: 73610; 99212

== ENCOUNTER 2024-11-03 13:27 | Outpatient (AMB) | payer OTHER, SELFPAY ==
--- NOTE | 2024-11-03 13:40 | MHC.OFFVIS ---
Intake Visit Reasons: OV-8wk f/u left ankle ORIF Intake Note: Nedra is a 29 year old female who presents today for a post operative visit after undergoing a left ankle removal of hardware, DOS 09/15/[address] Copeland. At her last visit she will continue to weight bear as tolerated with boot and crutches. She will continue physical therapy and follow up in 6 weeks . Patient reports she is doing a lot better however she has concerns wit her ROM. States she is working with therapist to improve her dorsiflextion. Allergies amoxicillin (AMOXICILLIN) Allergy (Severe, Verified 11/03/24 13:43) anaphylaxis,rash omalizumab (From XOLAIR) Allergy (Severe, Verified 11/03/24 13:43) HIVES AND THROAT CLOSING Penicillins (PENICILLINS) Allergy (Severe, Verified 11/03/24 13:43) Anaphylaxis seafood Allergy (Severe, Verified 11/03/24 13:43) Anaphylaxis cetirizine (From ZYRTEC) Allergy (Intermediate, Verified 11/03/24 13:43) SHORTNESS OF BREATH vancomycin (VANCOMYCIN) Allergy (Intermediate, Verified 11/03/24 13:43) RASH, itching grass pollen Allergy (Mild, Verified 11/03/24 13:43) Hives animal dander Allergy (Unknown, Verified 11/03/24 13:43) HIVES loratadine (LORATADINE) Allergy (Unknown, Verified 11/03/24 13:43) THROAT SWELLING, hives HPI HPI OV-8wk f/u left ankle ORIF: Details: 29-year-old female returns to the office today 5 months out from an ORIF of the left ankle and 8 weeks status post removal of hardware left ankle. She has completed her antibiotics and has been cleared by Infectious Disease. She comes in today ambulating with the boot weightbearing as tolerated. She states her pain and swelling has improved she also feels a sensation in the left lower extremity is improved. She continues to work with physical therapy and has significant stiffness with dorsiflexion. 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 There is no erythema or swelling. No tenderness to palpation over the lateral malleolus or syndesmosis. She has good sensation to the ankle and foot with pulses intact. Results Reviewed Results Reviewed: X-rays of the left ankle obtained in the office today and reviewed by me show well-healed distal fibular fracture and ankle mortise is intact. Assessment & Plan Assessment & Plan (1) S/P hardware removal: Code(s): Z98.890 - Other specified postprocedural states Category: Surgical (2) Closed left ankle fracture: Code(s): S82.892A - Other fracture of left lower leg, initial encounter for closed fracture Category: Medical Plan She will continue to work with physical therapy to regain her range of motion strengthening proprioception. She was fit for a lace-up ankle brace for stability and she was also given a compressive ankle sleeve to help with swelling. She will continue with her light duty restrictions and see me back in 8 weeks for re-evaluation, sooner if needed. Orders: Orders XR ankle LT min 3V Today M25.572 - Pain in left ankle and joints of left foot Coding Level of Care Code Global (81889) Diagnoses S/P hardware removal Z98.890 Closed left ankle fracture S82.892A
--- OUTSIDE RECORDS SUMMARY | 2024-11-03 15:28 | XMS_ITS | Clinical Summary ---
Author Organization [facility] ity Address [address] [place] [address] Care Team Providers Care Supervisor Sawmill Name Role Phone Magnus Hampton MD Primary Care Provider [phone] Social History Tobacco Use Types Packs/Day Years [...] 03/22/2023 Social Influencers of Health Screening 03/22/2023 Depression Screening 02/17/2024 COVID-19 Vaccine ( - 2023-2 5 season) 2024 Influenza Vaccine (#1) 2024 HIB Vaccines Aged [...] to complete this topic Care Teams Supervisor Sawmill Relationship Specialty Start Date End Date Magnus Hampton MD [address] [place] [address] Dr Salud [place] PCP - General 03/16/22
--- OUTSIDE RECORDS SUMMARY | 2024-11-03 15:28 | XMS_ITS | Clinical Summary ---
Author Organization [facility] Address [address] [address] Phone Care Team Providers Care Counseling Director Name Role Phone Magnus Hampton MD [...] SCREENING (18-65 YEARS) 2015 PAP SMEAR 2018 INFLUENZA VACCINE (#1) 2024 9, 11/22/2018, 12/04/2017, Additional history exists COVID-19 VACCINE ( season) 2024 Adult Td,Tdap Booster 07/20/2030 07/20/2020 , 08/25/2017, [...] topic Medical Devices Not on file Insurance WELLSENSE NON NSPG PCP [employer] [facility] PARTIAL WELLSENSE NON NSPG PCP [employer] Member Subscriber Plan / Payer (Ef fective 2019-Present) Name:Nedra Cardona Relation to Subscriber:Self Name:Nedra Cardona Payer ID:[id number] Type:[facility] Address: [address] SAFETY NET PARTIAL WELLSENSE NON NSPG PCP [employer] Member Subscriber Plan / Payer (Ef fective 2019-Present) Name:Nedra Cardona Relation to Subscriber:Self Name:Nedra Cardona Payer ID:[id number] Type:[facility] Address: [address] NET PARTIAL WELLSENSE NON NSPG PCP [employer] Member Subscriber Plan / Payer (Ef fective 2019-Present) Name:Nedra Cardona Relation to Subscriber:Self Name:Nedra Cardona Payer ID:[id number] Type:[employer] Address: [address] SAFETY NET PARTIAL WE[employer] NON NSPG PCP [employer] Member Subscriber Plan / Payer (Ef fective 2019-Present) Name:Nedra Cardona Relation to Subscriber:Self Name:Nedra Cardona Payer ID:[id number] Type:[facility] Address: [address] SAFETY NET PARTIAL WELLSENSE NON NSPG PCP [employer] SAFETY NET PARTIAL [facility] PCP S[employer] SAFETY NET PARTIAL [facility] N[facility]G PCP S[employer] SAFETY NET PARTIAL [facility] NON NSP PCP [facility] Address: [address] [place] [address] [employer] SAFETY NET PARTIAL Care Teams Counseling Director Relationship Specialty Start Date End Date Magnus Hampton MD [address] [place] [address] PCP - General 03/29/19 Additional Source Comments The information contained in this document represents components of the legal health record. It is not the complete legal health record.[facility]
== END 2024-11-03 14:13 | disposition home or self-care (01) ==
LOC: HO.HOS 13:28
PROVIDERS: PCP Family Medicine; Visit Provider Physician Assistant
DX: Z98.890 Other specified postprocedural states (principal); S82.892A Other fracture of left lower leg, initial encounter for closed fracture
CPT/HCPCS: 99024

== ENCOUNTER → 2024-11-03 13:33 | Outpatient (BNV) | payer OTHER, SELFPAY | PROVIDERS: Visit Provider Radiology Diagnostic Radiology | DX: M25.572 Pain in left ankle and joints of left foot (principal) | CPT/HCPCS: 73610 ==

== ENCOUNTER 2024-12-28 08:50 | Outpatient (REF) | payer OTHER, SELFPAY ==
--- NOTE | ~2024-12-28 | XR_ITS ---
EXAMINATION: XR ANKLE, left CLINICAL INFORMATION: M25.572 - Pain in left ankle and joints of left foot COMPARISON: 11/03/2024 TECHNIQUE: AP, lateral, and mortise views lower extremity joint, ankle. FINDINGS: There is juxta-articular osteopenia. There are 3 visible tracks across the distal fibular diaphysis related to hardware removal. Ankle mortise is congruent. There is no widening of the syndesmosis. Talar dome is intact. There is a minute Achilles tendon calcaneal enthesophyte(s). XR/XR ankle LT min 3V IMPRESSION: Periarticular osteopenia is mildly increased. No other changes are noted. Electronically signed by: Spencer Cooper MD 12/28/2024 10:41 AM DEJAH
--- OUTSIDE RECORDS SUMMARY | 2024-12-28 09:16 | XMS_ITS | Clinical Summary ---
Author Organization [facility] Address [address] [address] Phone Care Team Providers Care Health Safety Instructor Name Role Phone Magnus Hampton MD [...] WELLSENSE NON NSPG PCP [employer] [facility] PARTIAL WELLSENSE NON NSPG PCP [employer] Member Subscriber Plan / Payer (Ef fective 2019-Present) Name:Nedra Cardona Relation to Subscriber:Self Name:Nedra Cardona Payer ID:[id number] Type:[employer] Address: [address] SAFETY NET PARTIAL WELLSENSE NON NSPG PCP [employer] Member Subscriber Plan / Payer (Ef fective 2019-Present) Name:Nedra Cardona Relation to Subscriber:Self Name:Nedra Cardona Payer ID:[id number] Type:[employer] Address: [address] NET PARTIAL WELLSENSE NON NSPG PCP [employer] Member Subscriber Plan / Payer (Ef fective 2019-Present) Name:Nedra Cardona Relation to Subscriber:Self Name:Nedra Cardona Payer ID:[id number] Type:[employer] Address: [address] SAFETY NET PARTIAL WE[employer] NON NSPG PCP [employer] Member Subscriber Plan / Payer (Ef fective 2019-Present) Name:Nedra Cardona Relation to Subscriber:Self Name:Nedra Cardona Payer ID:[id number] Type:[employer] Address: [address] SAFETY NET PARTIAL WE[employer] NON NSPG PCP [employer] SAFETY NET PARTIAL [facility]G PCP S[employer] SAFETY NET PARTIAL [facility] NON NSPG PCP S[employer] SAFETY NET PARTIAL [facility] NON NSPG PCP S[facility] Address: [place] [address] [employer] SAFETY NET PARTIAL Care Teams Health Safety Instructor Relationship Specialty Start Date End Date Magnus Hampton MD PCP - General 03/29/19 Additional Source Comments The information contained in this document represents components of the legal health record. It is not the complete legal health record.[facility]
--- OUTSIDE RECORDS SUMMARY | 2024-12-28 09:16 | XMS_ITS | Clinical Summary ---
Author Organization [facility] ity Address [address] [place] [address] Care Team Providers Care Museum Exhibit Designer Name Role Phone Magnus Hampton MD Primary Care Provider [phone] Social History Tobacco Use Types Packs/Day Years [...] 03/22/2023 Social Influencers of Health Screening 03/22/2023 HPV Vaccines (1 - 3-dose SCD M series) 01/09/2024 Depression Screening 02/17/2024 COVID-19 Vaccine ( - 2024-2 6 season) 2024 Influenza Vaccine (#1) 2024 RSV [...] age to complete this topic Care Teams Museum Exhibit Designer Relationship Specialty Start Date End Date Magnus Hampton MD [address] [place] [address] Dr Salud MA PCP - General 03/16/22
== END 2024-12-28 08:51 | disposition home or self-care (01) ==
LOC: HO.HOSX 08:50
PROVIDERS: Visit Provider Physician Assistant
DX: M25.572 Pain in left ankle and joints of left foot (principal)
CPT/HCPCS: 73610; 99212

== ENCOUNTER 2024-12-28 09:36 | Outpatient (AMB) | payer OTHER, SELFPAY ==
--- NOTE | 2024-12-28 09:44 | A.OFFVIS_ITS ---
Intake Visit Reasons: OV-LT ankle BRIANA I&D 09/15/24 NE-injury Intake Note: Nedra is a 29 year old female who presents today for a same day visit due to an increase of pain status post left ankle removal of hardware, DOS 09/15/[address] Copeland. Today patient reports that she felt a pop at the medial side of ankle this morning with an increase of pain. States that working with physical therapy she feels this pop however nothing like today. She has concerns of pain with applying weight and placing her foot at a 90 degree angle. Allergies amoxicillin (AMOXICILLIN) Allergy (Severe, Verified 12/28/24 10:22) anaphylaxis,rash omalizumab (From XOLAIR) Allergy (Severe, Verified 12/28/24 10:22) HIVES AND THROAT CLOSING Penicillins (PENICILLINS) Allergy (Severe, Verified 12/28/24 10:22) Anaphylaxis seafood Allergy (Severe, Verified 12/28/24 10:22) Anaphylaxis cetirizine (From ZYRTEC) Allergy (Intermediate, Verified 12/28/24 10:22) SHORTNESS OF BREATH vancomycin (VANCOMYCIN) Allergy (Intermediate, Verified 12/28/24 10:22) RASH, itching grass pollen Allergy (Mild, Verified 12/28/24 10:22) Hives animal dander Allergy (Unknown, Verified 12/28/24 10:22) HIVES loratadine (LORATADINE) Allergy (Unknown, Verified 12/28/24 10:22) THROAT SWELLING, hives Medication List - Last Reconciled 12/28/24 by Med Prince PA-C acetaminophen 650 mg (2 x 325 mg) PO Q8H PRN 30 days albuterol sulfate 90 mcg/actuation (Ventolin HFA) 1 inh inhalation QID PRN daptomycin 600 mg IV Q24H ibuprofen 800 mg PO Q8H PRN 30 days [Kneeling Scooter As directed] HPI HPI OV-LT ankle BRIANA I&D 09/15/24 NE-injury: Details: 29-year-old female returns to the office today for follow up of her left ankle. She is status post ORIF of the left ankle on 06/14/2024 with a removal of hardware on 09/15/2024. Patient states she was walking this morning when she felt a pop on the medial aspect of her ankle which caused increased pain and discomfort with ambulation. She has been working with physical therapy and states that she will get a subtle popping but nothing to this extent. 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 No surrounding erythema ecchymosis or swelling. She has mild tenderness to palpation along the soft tissues of the medial malleolus. No tenderness over the Achilles tendon. She has weakness with dorsiflexion and inversion against resistance. Calf is supple and non tender neurovascularly intact. Results Reviewed Results Reviewed: X-rays of the left ankle obtained in the office today and reviewed by me show healed distal fibular fracture with ankle mortise intact. Assessment & Plan Assessment & Plan (1) Closed left ankle fracture: Code(s): S82.892A - Other fracture of left lower leg, initial encounter for closed fracture Category: Medical Plan: I explained to the patient there are no bony abnormalities. She may have just irritated some scar tissue or had a ligament sublux which has caused irritation. I recommend ibuprofen 800 mg 3 times a day for 2 weeks along with icing and modification of activities. She should continue working with physical therapy for some gentle stretching exercises. She will see us back in 8 weeks for routine follow up, sooner if needed. Orders: Orders XR ankle LT min 3V Today M25.572 - Pain in left ankle and joints of left foot Coding Level of Care Code Est Pt Level 3 (66430) Complex EM visit Add On G2211 Diagnoses Closed left ankle fracture S82.892A
== END 2024-12-28 10:54 | disposition home or self-care (01) ==
LOC: HO.HOS 09:37
PROVIDERS: Visit Provider Physician Assistant
DX: S82.892A Other fracture of left lower leg, initial encounter for closed fracture (principal)
CPT/HCPCS: 99213; G2211

== ENCOUNTER → 2024-12-28 09:43 | Outpatient (BNV) | payer OTHER, SELFPAY | PROVIDERS: Visit Provider Radiology Diagnostic Radiology | DX: M85.872 Other specified disorders of bone density and structure, left ankle and foot (principal) | CPT/HCPCS: 73610 ==